=== PATIENT | male | born 1955 | race Caucasian/White ===

== ENCOUNTER 2020-03-11 12:45 | Emergency (ER) | payer BC, SELFPAY ==
--- NOTE | 2020-03-11 12:51 | ED.GENADULT ---
HPI - General Adult General Chief complaint: Skin/Abscess/Foreign Body Stated complaint: Rash Time Seen by Provider: 03/11/20 13:10 Source: patient Mode of arrival: ambulatory Limitations: no limitations History of Present Illness HPI narrative: 65-year-old male patient presents to the [facility] with complaints of a rash to the face and upper extremities. Patient states he came in contact with some poison bassam about 3 days ago and states that the rash is gotten increasingly worse. Patient states he did start taking some [id number]-[id number]-blhlard Cari to help with the itching and has been putting on some topical poison bassam cream that he got from the pharmacy but does not seem to be helping. Patient states that he does have some itchiness around his eyelids and that both of his eyes are popping out but denies any vision changes to bilateral eyes. Denies any chest pain, shortness of breath, fevers, body aches or chills. Related Data Home Medications Medication Instructions Recorded Confirmed alirocumab [Praluent Pen] See Rx Instructions .ROUTE .COMPLEX 03/11/20 03/11/20 lisinopril 10 mg PO DAILY 03/11/20 03/11/20 metoprolol succinate 50 mg PO DAILY 03/11/20 03/11/20 Allergies Allergy/AdvReac Type Severity Reaction Status Date / Time No Known Allergies Allergy Verified 03/11/20 13:03 Review of Systems Review of Systems: Narrative: CONSTITUTIONAL: Denies fever, chills, or sweats. EYES: Denies visual changes, redness, or discharge. ENT: Denies rhinorrhea, congestion, sore throat, or otalgia. CARDIOVASCULAR: Denies chest pain, palpitations, or edema. RESPIRATORY: Denies cough or dyspnea. GASTROINTESTINAL: Denies abdominal pain, nausea, vomiting, or diarrhea. GENITOURINARY: Denies dysuria or hematuria. SKIN: Positive rash to face and bilateral upper extremities x3 days MUSCULOSKELETAL: Denies back pain, joint pain, or myalgia. NEUROLOGIC: Denies headache, numbness, or weakness. PSYCHIATRIC: Denies anxiety or depression. PMFSH Comments At the time of my signature I agree with nursing past medical history, surgical, social, and family history. There is no relevant family history pertinent to the presenting complaint. Exam Narrative: Exam Narrative: GENERAL: Well-appearing, well-nourished, and in no acute distress. HEAD: Normocephalic, atraumatic. EYES: PERRLA and EOM intact without limitation or complaint of pain, periorbital soft tissue swelling with erythema, no warmth or tenderness noted, no obvious deformity. No crusting or swelling.no tearing or draining.No photophobia. No nystagmus No FB or lesion on lid eversion. Corneas grossly clear, no obvious FB or hyphens/hypopyon. injection to sclera. Lids and lashes clear. ENT: Nares clear, no rhinorrhea or epistaxis. Mucous membranes moist. Posterior pharynx with no erythema, tonsil management, exudates or lesions present. Bilateral TMs are clear no erythema or foreign bodies in the canal. NECK: Supple. No lymphadenopathy CHEST: Clear to auscultation. No respiratory distress. HEART: Regular rate and rhythm. No murmur heard. Normal peripheral pulses. ABDOMEN: Soft, nontender, nondistended, normal active bowel sounds. EXTREMITIES: Normal range of motion. No edema. SKIN: Patient does have a flat blotchy erythemic rash noted to various areas of the face, forehead as well as papules and pustules noted to the left shoulder and flat papules with erythema noted to bilateral upper extremities. No open areas or discharge noted at this time. NEURO: No focal deficits. Alert and oriented x3. Course Vital Signs Vital signs: Vital Signs Temperature 36.3 C L 03/11/20 13:00 Pulse Rate 56 L 03/11/20 13:00 Respiratory Rate 16 03/11/20 13:00 Blood Pressure 143/58 H 03/11/20 13:00 Pulse Oximetry 100 03/11/20 13:00 Temperature 36.3 C L 03/11/20 13:00 Pulse Rate 56 L 03/11/20 13:00 Respiratory Rate 16 03/11/20 13:00 Blood Pressure 143/58 H 03/11/20 13:00 Pulse Oximetry 100
[2020-03-11 13:00] VITALS: BP 143/58; PULSE 56; RESP 16; TEMP 36.3; O2SAT 100
== END 2020-03-11 13:20 | disposition home or self-care (01) ==
PROVIDERS: Emergency Provider Nurse Practitioner Family
DX: L25.5 Unspecified contact dermatitis due to plants, except food (principal); H10.33 Unspecified acute conjunctivitis, bilateral; I10 Essential (primary) hypertension; Z95.5 Presence of coronary angioplasty implant and graft
CPT/HCPCS: 99213; G0463

== ENCOUNTER 2022-07-29 15:00 | Outpatient (RCR) | payer BC, SELFPAY ==
--- NOTE | 2022-05-14 16:33 | PTOPEVAL1 ---
Assessment and note entered by Dilia Edwards, PT Evaluation Information Assessment Status Evaluation Diagnosis L tib fib fracture Onset 03/09/2022 Subjective Information Pt reports took forever for swelling to go down, inside half of foot is numb. Working from home. Reports was initially in a rolling walker with minimal weight bearing, now is improved to increased weight and walking with straight cane. Reported Pain Level Pain Score 2: Self Report Assessment PT Clinical Summary Pt presents s/p tib/fib fracture w/ ORIF tibial shaft on 03/10/2022. Reports pain is doing well, lowest at 2/10 and highest at 5/10. Has been able to increase weight bearing and ambulate with a straight cane the last few weeks without increasing pain. Pt PLOF is very high level including working out at a gym 3 time a week. Currently pt demo's decreased active ROM, passive ROM, decreased strength, abnormal gait, and decreased functional activity compared to pt norm . Thus patient will greatly benefit from therapy to address deficits and return pt to PLOF Plan of Care Interventions Electrical Stimulation,Gait Training,Hot Pack/Cold Pack,Manual Therapy,Neuro Re-education,Patient/ Caregiver Educati,Therapeutic Activities, Therapeutic Exercise,Self-Care/Home Management PT Services Indicated Yes Treatment Frequency and 2x weekly x 6 weeks Duration These treatments will address the objective and functional deficits as defined above. The patient will be advanced safely and appropriately in order for the patient to progress towards his/her prior level of function. Additional exercises will be introduced and as well as a comprehensive home exercise program upon discharge, if needed, ?to ensure carryover of functional gains achieved in the clinic. This treatment plan has been reviewed and agreement upon by the patient.
--- NOTE | 2022-06-26 16:34 | PTOPPROG ---
Assessment and note entered by Miguel Edwards, PT Evaluation Information Assessment Status Progress Diagnosis L Tib/fib fx Onset 03/09/2022 Subjective Information Patient reports he is doing more working out and ordered a peloton bike. He is getting around with the cane outside, but not needed assistive device when walking around the home. Still wants to improve his walking pattern to have a better heel strike. Assessment PT Clinical Summary Toñito is a 67 year old man that has been coming to therapy for 9 visits starting on May 14. He has improved range of motion and strength, progressing in his goals, but not yet meeting them. I feel like we can start progressing from range of motion, strengthening, and static standing balance to dynamic static and more advanced ankle stabilization exercises. Patient is on board wanting to work on improving his gait pattern and reducing need of straight cane with walking. Plan of Care Interventions Electrical Stimulation,Gait Training,Manual Therapy,Neuro Re-education,Patient/Caregiver Education,Therapeutic Activities,Therapeutic Exercise,Ultrasound PT Services Indicated Yes Treatment Frequency and 2x/wk for 4 weeks Duration These treatments will address the objective and functional deficits as defined above. The patient will be advanced safely and appropriately in order for the patient to progress towards his/her prior level of function. Additional exercises will be introduced and as well as a comprehensive home exercise program upon discharge, if needed, ?to ensure carryover of functional gains achieved in the clinic. This treatment plan has been reviewed and agreement upon by the patient.
--- NOTE | 2022-07-29 16:27 | PTOPREEVAL ---
Assessment and note entered by Miguel Edwards, PT Evaluation Information Assessment Status Re-evaluation Diagnosis Fracture of tibia and fibula shaft closed L ankle Onset 03/09/22 Subjective Information Patient reports he is able to do more, but still has edema, franks splints, and uses his cane on bad terrain. He reports that he wants to get back to running. Reported Pain Level Pain Score 3: Self Report Additional Pain Score Comments reports decreased pain after manual therapy. Assessment PT Clinical Summary Toñito is a 67 year old coming to the clinic for ankle issues following a traumatic injury with his lawnmower requiring surgery. He started 05/14/22 and has attended 18 visits so for. He has met his goals for range of motion and strength, but not pain also reporting he wants to run again compared to last evaluation when it was not to have to use a cane anymore. Will try to get him on the treadmill, but I feel that that prognosis is guarded. Plan of Care Interventions Electrical Stimulation,Gait Training,Hot Pack/Cold Pack,Manual Therapy,Neuro Re-education,Patient/ Caregiver Education,Therapeutic Activities, Therapeutic Exercise PT Services Indicated Yes Treatment Frequency and 2x/wk for 5 weeks Duration These treatments will address the objective and functional deficits as defined above. The patient will be advanced safely and appropriately in order for the patient to progress towards his/her prior level of function. Additional exercises will be introduced and as well as a comprehensive home exercise program upon discharge, if needed, ?to ensure carryover of functional gains achieved in the clinic. This treatment plan has been reviewed and agreement upon by the patient.
--- NOTE | 2022-09-03 16:34 | PCPTNOTE ---
This treatment is being continued on visit number [id number]. Please see documentation on both accounts to view progress. Completed interventions, outcomes, and problems have been marked as Inactive to facilitate the copying of the Care plan routine for recurring accounts.
== END 2022-08-04 11:35 | disposition home or self-care (01) ==
LOC: ANHPT 15:00
DX: S82.202D Unspecified fracture of shaft of left tibia, subsequent encounter for closed fracture with routine healing (principal); S82.402D Unspecified fracture of shaft of left fibula, subsequent encounter for closed fracture with routine healing
CPT/HCPCS: 97110; 97112; 97140; 97161; 97530

== ENCOUNTER 2022-10-08 15:30 | Outpatient (RCR) | payer BC, SELFPAY ==
--- NOTE | 2022-09-03 16:11 | PTOPPROG ---
Assessment and note entered by Manda Fitzgerald, PT Evaluation Information Assessment Status Progress Diagnosis Fracture of tibia and fibula shaft closed L ankle Onset 03/09/22 Subjective Information Maxi reports: overall have made progress, but in the past 2 weeks have been having more franks pain and foot numbness--top of foot, heel and instep; tend to roll my ankle when walking, due to foot numb; doing the exercises every day at home and they hurt my leg after doing; no longer using the cane, not used for the past 2 weeks; wears compression knee high socks; is using his stationary bike for 20 minutes with interval training for faster speeds; pain range of 0-4/10- increase with walking; franks and knee Assessment PT Clinical Summary Maxi has received a total of 25 PT sessions. Compared to the last reevaluation: pain rating at the worst has increased from 3 to 4/10- anterior franks and some knee pain, with numbness medial foot ; is not using the cane for ambulation on uneven surfaces; he is walking with a limp on L LE/ decreased weight shift onto his L leg and has slight knee flexion with increased weight bearing on his lateral foot; Functional strength testing L LE: -single leg standing R 30 sec- unsteady/L 20 seconds - decreased stability- increased WB on lateral foot and slight knee flexion - supine SLR with 5# ankle wt x 20 reps; side lying hip abduction 5# ankle wt x 20 reps; prone hip extension 5# x 20 reps; - standing B PF x 20 reps; L single leg PF with 1 UE support x 10 reps- increase franks pain;Funct Treadmill testing: speed increased to 1.7 mph x 2 min, with total time of 10 min with warm up and cool down; increase pain in L franks and wanted to stop walking; The goals were partially met. He is to follow up next week with . Continue PT 1x/week for 5 weeks, await further orders from to continue therapy with any further treatment instructions. Plan of Care Interventions Electrical Stimulation,Gait Training,Hot Pack/Cold Pack,Manual Therapy,Neuro Re-education,Patient/ Caregiver Education,Therapeutic Activities, Therapeutic Exercise,Ultrasound,Other Other Interventions taping
--- NOTE | 2022-09-03 16:33 | PCPTNOTE ---
This treatment is being continued on visit number [id number] Please see documentation on both accounts to view progress. Completed interventions, outcomes, and problems have been marked as Inactive to facilitate the copying of the Care plan routine for recurring accounts.
--- NOTE | 2022-10-08 16:07 | PTOPDC ---
Assessment and note entered by Manda Fitzgerald, PT Evaluation Information Assessment Status Discharge Diagnosis Fracture of tibia and fibula shaft closed L ankle Onset 03/09/22 Subjective Information Toñito reports: still aggravated that foot is numb-- to have nerve conduction test November 22; Rock Tape helped franks at last appointment; doing the exercises at home, riding his stationary bike about 20 min; walking is uncomfortable; worried that he will be able to work in the yard this spring like he used to--working 8-10 hr outside; Reported Pain Level Pain Score Self Report L LE Additional Pain Score Comments pain range in the past week 1-4/10; mid franks- medial aspect- like a stabbing pain; numb on bottom of L foot, except arch of foot; increase pain after working out and doing exercises; walking--reports has not tested it, with shopping, holds onto the cart; when home from shopping, heel more numb and tingling Rock tape applied to L medial franks; educated pt on how to apply tape, monitor skin; Assessment PT Clinical Summary Toñito has received a total of 29 PT sessions, from May 14, 2022 to today. Compared to the last reeval: pain rating was 0-4/10 and now is 1-4/10; increase strength of L LE with single leg standing time; single leg PF is the same; with walking on the treadmill, maximum speed for 5 minutes is 1.8 mph; continues to have a limp on L LE with walking and reports numbness in his L foot. He is indep with home exercise program and fitness exercises for overall health. The goals were partially achieved. Discharge PT services. Plan of Care PT Services Indicated No
== END 2022-10-21 09:05 | disposition home or self-care (01) ==
LOC: ANHPT 15:30
DX: S82.202D Unspecified fracture of shaft of left tibia, subsequent encounter for closed fracture with routine healing (principal); S82.402D Unspecified fracture of shaft of left fibula, subsequent encounter for closed fracture with routine healing
CPT/HCPCS: 97035; 97110; 97140; 97530

== ENCOUNTER 2022-11-11 09:04 | Emergency (ER) | payer BC, SELFPAY ==
--- NOTE | 2022-11-11 09:11 | ED.URI ---
HPI - URI/Sore Throat General Chief Complaint: Upper Respiratory Infection Stated Complaint: SINUS CONGESTION/CHEST CONGESTION Time Seen by Provider: 11/11/22 09:20 Source: patient and RN notes reviewed Mode of arrival: ambulatory Limitations: no limitations History of Present Illness HPI Narrative: 67-year-old male presents with concern for rhinorrhea, nasal congestion, sneezing, itchy eyes that started after doing yd work without wearing a mask over the weekend. Reports history of seasonal allergies. He reports he tried Mucinex DM in [place] 1 time. He denies fever, aches, chills, sweats. Reports cough MD elicited complaint: cough, rhinorrhea and nasal congestion Related Data Home Medications Medication Instructions Recorded Confirmed alirocumab 75 mg/mL subcutaneous See Rx Instructions .Route .COMPLEX 03/11/20 11/11/22 pen injector (Praluent Pen) lisinopril 10 mg tablet 10 mg PO DAILY 03/11/20 11/11/22 metoprolol succinate 50 mg 50 mg PO DAILY 03/11/20 11/11/22 tablet,extended release 24 hr Allergies Allergy/AdvReac Type Severity Reaction Status Date / Time No Known Allergies Allergy Verified 11/11/22 09:11 Review of Systems Review of Systems: CONSTITUTIONAL: Denies malaise, chills, sweats, or fever. EYES: Denies visual changes, redness, or discharge. ENT: Reports rhinorrhea, congestion, ear fullness. Denies sinus pain and sore throat. CARDIOVASCULAR: Denies chest pain, palpitations, or edema. RESPIRATORY: Reports cough. Denies dyspnea. GASTROINTESTINAL: Denies abdominal pain, nausea, vomiting, diarrhea SKIN: Denies rash or itching. MUSCULOSKELETAL: Denies myalgia. NEUROLOGIC: Denies headache. All systems reviewed & are unremarkable except as noted in HPI and below PMFSH Comments At time of signature, agree with nursing past medical, surgical, social and family history. There is no relevant family history pertinent to the presenting complaint Exam Narrative: GENERAL: Well-appearing, well-nourished, and in no acute distress. HEAD: Normocephalic EYES: PERRLA, conjunctivae clear ENT: Nares clear, turbinates edematous and erythematous, clear discharge. Mucous membranes moist. TM pearly naranjo with sharp light reflex bilaterally; no tragal tenderness. Oropharynx not erythematous without lesions. Tonsils not enlarged and without exudate, no drooling, no hoarseness, no trismus, uvula midline. NECK: Supple. No lymphadenopathy CHEST: Clear to auscultation, breath sounds equal. No wheezing, rhonchi, rales, or stridor. No respiratory distress, speaks in full sentences. HEART: Regular rate and rhythm. No murmur heard. SKIN: Warm, dry, no rash. NEURO: Alert and oriented x3. PSYCH: Normal mood and affect Course Course Emergency Course: Patient is aware of diagnosis, understands and agrees to treatment plan. Anticipatory guidance given. Patient agrees to follow-up as directed and is aware of reasons to seek care at the emergency department. Portions of this record may have been created with voice recognition software Level of Care: Express Care Visit Vital Signs Vital signs: Reviewed. MDM - URI/Sore Throat MDM Narrative Medical decision making narrative: Differential diagnosis considered: Baron virus, strep pharyngitis, allergic rhinitis, upper respiratory tract infection, sinusitis, rhinosinusitis, nasopharyngitis. viral pharyngitis, otitis media, otitis externa, pneumonia, bronchitis, viral cough syndrome, viral syndrome, and influenza. Exam findings show no acute concerns or changes; patient is non-toxic appearing and is in no distress. Patient is appropriate for outpatient treatment and follow-up. Lab Data Attestation: I reviewed the patient's lab results. Critical Care Time Critical Care Time Critical Care Time: No Discharge Plan Discharge Clinical Impression: Allergic rhinitis Patient Disposition: Home, Self-Care Condition: Stable Instructions: Allergies (ED) Additional Instruction
[2022-11-11 09:13] VITALS: BP 135/71; PULSE 60; RESP 16; TEMP 36.9; O2SAT 99
[2022-11-11 09:14] VITALS: BP 135/71; PULSE 60; RESP 16; TEMP 36.9; O2SAT 99
== END 2022-11-11 09:34 | disposition home or self-care (01) ==
PROVIDERS: Emergency Provider Nurse Practitioner; PCP Internal Medicine
DX: J30.9 Allergic rhinitis, unspecified (principal); I10 Essential (primary) hypertension; I25.10 Atherosclerotic heart disease of native coronary artery without angina pectoris; Z95.5 Presence of coronary angioplasty implant and graft; G47.30 Sleep apnea, unspecified
CPT/HCPCS: 99213; G0463

== ENCOUNTER 2023-05-21 13:32 | Emergency (ER) | payer BC, SELFPAY ==
--- NOTE | 2023-05-21 13:38 | ED.GENADULT ---
HPI - General Adult General Chief complaint: Upper Respiratory Infection Stated complaint: Covid exposure/aches/fatigue Time Seen by Provider: 05/21/23 14:36 Source: patient, RN notes reviewed and old records reviewed Mode of arrival: ambulatory Limitations: no limitations History of Present Illness HPI narrative: 68-year-old male presents to the [facility] with concerns of a COVID exposure last weekend. Patient states that he was around his daughter last weekend who then tested positive for COVID this morning. Was notified this morning of her positive test. Patient reports that he has had body aches, fatigue and sinus pressure since Thursday, 4 days. No treatment prior to arrival Treatments prior to arrival: none Related Data Home Medications Medication Instructions Recorded Confirmed alirocumab 75 mg/mL subcutaneous See Rx Instructions .Route .COMPLEX 03/11/20 11/11/22 pen injector (Praluent Pen) lisinopril 10 mg tablet 10 mg PO DAILY 03/11/20 11/11/22 metoprolol succinate 50 mg 50 mg PO DAILY 03/11/20 11/11/22 tablet,extended release 24 hr gabapentin 300 mg capsule mg 05/21/23 hydroxyzine HCl 25 mg tablet mg 05/21/23 Allergies Allergy/AdvReac Type Severity Reaction Status Date / Time No Known Allergies Allergy Verified 11/11/22 09:11 Review of Systems Review of Systems: All systems reviewed & are unremarkable except as noted in HPI and below Constitutional: Constitutional: Reports as per HPI, Reports body ache(s) and Reports fatigue Eyes: Eyes: Reports no additional eye complaints ENT: Reports as per HPI Cardiovascular: Cardiovascular: Reports no additional cardiovascular complaints, Denies chest pain and Denies dyspnea Respiratory: Respiratory: Reports no additional respiratory complaints, Denies chest congestion, Denies cough and Denies dyspnea Gastrointestinal: Gastrointestinal: Reports no additional gastrointestinal complaints, Denies abdominal pain, Denies nausea and Denies vomiting Musculoskeletal: Musculoskeletal: Reports no additional musculoskeletal complaints Integumentary/Breasts: Skin/Breast: Reports system reviewed and no additional complaints, except as docu Neurologic: Reports system reviewed and no additional complaints, except as documented Psychiatric: Psychiatric: Reports no additional psychiatric complaints Allergic/Immunologic: Allergic/Immunologic: Reports no additional allergic/immunologic complaints PMFSH Past Medical History Medical History (Updated 05/22/23 @ 15:50 by Mariel Raza APRN) History of high blood pressure Comments At the time of my signature, I reviewed and agree with the nursing past medical, surgical, social, and family history. There is no relevant family history pertinent to the patient complaint. Exam Const: General: cooperative, healthy appearing, comfortable, no acute distress, well developed, alert and well nourished Nutritional Appearance: well nourished Orientation/consciousness: patient oriented x3 Limitations: no limitations HENMT: Head: normal to inspection Ears: hearing grossly normal bilaterally, external ears normal, TM's normal bilaterally, EAC's normal and mastoids normal Face/Nose/Sinus: Normal external nose present, Normal nares present, Normal nasal mucous membranes and turbinates present, normal facial exam and face symmetric Face and sinus: normal facial exam, sinuses nontender and face symmetric Mouth: Yes Normal oral and palatal mucosa present, Yes lip normal and Yes moist mucous membranes Throat: posterior oropharynx normal and uvula midline Eyes: General: appearance normal, both eyes and all related structures Alignment and Position: alignment normal Periorbital: periorbital findings normal Pupils: Equal, round and reactive pupils present EOM: EOMs intact bilaterally Neck: Neck: normal visual inspection, full ROM, no lymphadenopathy and no meningeal signs Chest: Chest palpation & inspection: normal inspection of t
[2023-05-21 13:44] VITALS: BP 128/58; PULSE 56; RESP 16; TEMP 37.1; O2SAT 99
== END 2023-05-21 14:50 | disposition home or self-care (01) ==
PROVIDERS: Emergency Provider Nurse Practitioner
DX: J06.9 Acute upper respiratory infection, unspecified (principal); Z20.822 Contact with and (suspected) exposure to COVID-19; I10 Essential (primary) hypertension
CPT/HCPCS: 87426; 87804; 99213; C9803; G0463

== ENCOUNTER 2024-08-31 08:21 | Outpatient (CLI) | payer BC, SELFPAY ==
--- NOTE | ~2024-08-31 | CT_ITS ---
EXAMINATION: CT sinus wo con DATE: 08/31/2024 08:34 INDICATION: Chronic sinusitis. TECHNIQUE: Computed tomography (CT) of the paranasal sinuses was performed without intravenous contra st. Iterative reconstruction technique was employed. The dose-length product was 394.17 mGy-cm. COMPARISON: None FINDINGS: There is mild mucosal thickening in the frontal and ethmoid sinuses. The sphenoid sinuses a re clear. There is mild mucosal thickening in the maxillary sinuses. There is rightward deviation of anterior nasal septum and leftward deviation of posterior nasal septum. The ostiomeatal units are pat ent. There is a 1.9 cm sclerotic lesion in the right frontal bone. IMPRESSION: 1. Mild mucosal thickening in the paranasal sinuses. 2. Rightward deviation of anterior nasal septum and leftward deviation of posterior nasal septum. 3. Sclerotic lesion of bone, which may be benign or metastatic disease. Consider bone scan. Reviewed, dictated and finalized at location A. [employer] REPAIRER IMPRESSION: 1. Mild mucosal thickening in the paranasal sinuses. 2. Rightward deviation of anterior nasal septum and leftward deviation of poste rior nasal septum. 3. Sclerotic lesion of bone, which may be benign or metastatic disease. Conside r bone scan.
== END 2024-08-31 08:22 | disposition home or self-care (01) ==
LOC: GOSHIMG 08:22
PROVIDERS: PCP Nurse Practitioner Family; Visit Provider Nurse Practitioner Family
DX: J34.89 Other specified disorders of nose and nasal sinuses (principal); J34.2 Deviated nasal septum; M89.8X8 Other specified disorders of bone, other site
CPT/HCPCS: 70486

== ENCOUNTER 2024-09-20 09:03 | Outpatient (CLI) | payer BC, SELFPAY ==
--- NOTE | ~2024-09-20 | NM_ITS ---
EXAMINATION: NM bone scan whole body DATE: 09/20/2024 13:08 INDICATION: Disorder of bone TECHNIQUE: 23.8 mCi Tc-99m HDP was administered intravenously. Delayed whole-body scintigrams were o btained. COMPARISON: There are no relevant imaging studies at our institution. FINDINGS: Typical pattern of likely degenerative joint centered uptake at the bilateral knees, acromioclavicula r joints and at the right sternoclavicular joint. Likely dental disease related uptake at the right m andible and maxilla. Mild uptake at both sides of the lower cervical spine also most likely degenerat dereck in etiology. Atypical linear band of mild uptake at the mid left tibia suggestive of an old heali ng fracture. There are couple additional small foci of mild uptake at the more distal tibia of indete rminate etiology given the suggestion of a possible tibial fracture and these could be related to chanel or internal fixation. Would correlate with clinical history and with radiographs of the left tibia an d fibula. Indeterminate focus of mild uptake at the posterior left eighth or ninth rib. IMPRESSION: 1. Indeterminate small focus of activity at the posterior left eighth or ninth rib. 2. Indeterminate linear region of mild increased uptake at the mid left tibial diaphysis with additio nal subtle foci along the more distal tibia. Configuration suggests possible old fracture with international marketing intern al fixation. Correlate with clinical history. 3. A couple indeterminate regions of increased uptake in the region of the left and right posterior i liac spines. 4. No prior imaging available for comparison which significantly limits interpretation for potential etiologies. Of prior outside imaging is unavailable for comparison would recommend dedicated radiogra phs of the left tibia/fibula and radiographs or CT of the left ribs and pelvis for correlation. Reviewed, dictated and finalized at location B. CTION PREVENTION COORDINATOR IMPRESSION: 1. Indeterminate small focus of activity at the posterior left eighth or ninth rib. 2. Indeterminate linear region of mild increased uptake at the mid left tibial diaphysis with additional subtle foci along the more distal tibia. Configuratio n suggests possible old fracture with internal fixation. Correlate with clinica l history. 3. A couple indeterminate regions of increased uptake in the region of the left and right posterior iliac spines. 4. No prior imaging available for comparison which significantly limits interpr etation for potential etiologies. Of prior outside imaging is unavailable for c omparison would recommend dedicated radiographs of the left tibia/fibula and ra diographs or CT of the left ribs and pelvis for correlation.
--- OUTSIDE RECORDS SUMMARY | 2024-09-20 09:44 | XMS_ITS | Encounter Summary ---
Author Organization [facility] Address [address] [place] [address] Care Team Providers Care Keyliner Name Role Phone Lila Carrington MD Primary Care Provider [phone] Encounter Details Date Type Department Care Team (Late st Contact Info) Description 04/14/2019 Specialty Pharmacy [facility] [address] [address] Patrice Fishman Social History Tobacco Use Types Packs/Day Years Used Date Smoking Tobacco: Former Cigarettes Q uit: 07/27/1983 Smokeless Tobacco: Never Alcohol Use Standard Drinks/Week Comments Yes 2 (1 standard drink = 0.6 oz pur e alcohol) Sex and Gender Information Value Date Recorded Sex Assigned at Not on file Legal Sex Male 5:14 PM CDT Gender Identity Not on file Sexual Orientation Not on file documented as of this encounter Plan of Treatment Upcoming Encounters Date Type Department Care Team (Late st Contact Info) Description 02/15/2025 3:00 PM CDT Office Visit [facility] Heart and Vascular At [facility] [address] [facility] [address] [place] [address] Xu Falk MD [address] [facility] [address] [place] [address] documented as of this encounter Visit Diagnoses Not on filedocumented in this encounter Care Teams Keyliner Relationship Specialty Start Date End Date Lila Carrington MD [address] [place] [address] PCP - General Internal Medicine 03/09/22 documented as of this encounter
--- OUTSIDE RECORDS SUMMARY | 2024-09-20 09:44 | XMS_ITS | Encounter Summary ---
Author Organization [facility] Address [address] [place] [address] Care Team Providers Care Sports Equipment Repairer Name Role Phone Lila Carrington MD Primary Care Provider [phone] Reason for Visit * Reason Onset Date Comments Medication Refill 09/20/2024 Encounter Details Date Type Department Care Team (Late Contact Info) Description 09/20/2024 Refill [facility] Internal Medicine Medical [facility] [address] [facility] [address] [address] Lila Carrington MD [address] [facility] [address] [place] [address] Social History Tobacco Use Types Packs/Day Years Used Date Smoking Tobacco: Former Cigarettes 0.5 5 0 07/27/1978 - 07/27/1983 Smokeless Tobacco: Former Chew Alcohol Use Standard Drinks/Week Comments Yes 2 (1 standard drink = 0.6 oz pure alcohol) I drink a couple of beers over the weekend Sex and Gender Information Value Date Recorded Sex Assigned at Not on file Legal Sex Male 5:14 PM CDT Gender Identity Not on file Sexual Orientation Not on file documented as of this encounter Plan of Treatment Upcoming Encounters Date Type Department Care Team (Late st Contact Info) Description 02/15/2025 3:00 PM CDT Office Visit [facility] Heart and Vascular At [facility] [address] [facility] [address] [place] [address] Xu Falk MD [address] [facility] [address] [place] [address] documented as of this encounter Visit Diagnoses Not on filedocumented in this encounter Care Teams Sports Equipment Repairer Relationship Specialty Start Date End Date Lila Carrington MD [address] [facility] [address] [place] [address] PCP - General Internal Medicine 03/09/22 documented as of this encounter
--- OUTSIDE RECORDS SUMMARY | 2024-09-20 09:44 | XMS_ITS | Clinical Summary ---
Author Organization [facility] Address [address] [place] [address] Phone Care Team Providers Care Advertising Representative Name Role Phone Silvio Stephens DPM Unavailable [phone] Lila Carrington MD Primary Care Provider [phone] Cielo Hay APRN, GLASS SELECTOR Unavailable Allergies No known active allergies Medications aspirin EC 81 MG PO TBEC Take by mouth. Acti ve lisinopril (PRINIVIL, ZESTRIL) 20 MG Tablet TAKE 1 TABLET BY MOUTH EVERY DAY 90 Tab 3 7 Active metoprolol Succinate (TOPROL-XL) 50 MG TABLET SR 24 HR TAKE 1 TABLET BY MOUTH EVERY DAY IN THE EVENING 90 Tab 7 Active Alirocumab (Praluent) 75 MG/ML Solution Auto-injector by Subcutaneous route. Active Active Problems Problem Noted Date Diagnosed Date Personal history of tobacco use 07/08/2024 Dermatophytosis of nail 06/09/2016 Hammer toe of right foot 06/09/2016 [place] of toe 06/09/2016 Onychomycosis 05/19/2016 HTN (hypertension) 11/12/2015 Hyperlipidemia 11/12/2015 Coronary artery disease invo lving [place] coronary artery of [place] heart without angina pectoris 11/12/2015 Physical exam 11/12/2015 Trigger ring finger of right hand 11/12/2015 NURYS (obstructive sleep apnea) 11/12/2015 Encounters Date Type Department Care Team Description 07/12/2024 Results Follow-Up [facility] Pulmonology & Sleep Medicine [facility] [address] [place] [address] Cielo Hay APRN, CNP 07/08/2024 7:30 PM DIRECTOR OF OCCUPATIONAL THERAPY Sleep Lab [facility] Sleep Lab [address] [place] [address] Cielo Hay APRN, CNP NURYS (obstructive sleep apnea); Obstructive sleep apnea Discharge Disposition: Discharged to home or Selfcare 07/08/2024 9:30 AM DIRECTOR OF OCCUPATIONAL THERAPY Office Visit [facility] Pulmonology & Sleep Medicine [facility] [address] [place] [address] Cielo Hay APRN, CNP NURYS (obstructive sleep apnea) (Primary Dx) Discharge Disposition: Discharged to home or Selfcare 07/08/2024 Transcribe Orders [facility] Sleep Lab [address] [place] [address] Cielo Hay APRN, CNP Obstructive sleep apnea (Primary Dx) 07/08/2024 Travel 07/06/2024 Travel from Last 3 Months Immunizations Immunization Administration Dates Next Due Influenza Vaccine, Quadrivalent, PF 04/30/2015 04/30/2016 PNEUMONIA ADULT IM [id number] 01/10/2013 PUR FLU 3+ YRS PRES FREE QUAD IM 05/19/2016 PUR FLU PRES FREE AGE 3+ FULL IM 04/17/2014 PUR TDAP 7+ YRS IM 10/29/2012 Family History Medical History Relation Name Comments Parkinsonism Father Congestive Heart Failure Mother Relation Name Status Comments Father Mother Alive Social History Tobacco Use Types Packs/Day Years Used Date Smoking Tobacco: Former Smokeless Tobacco: Never Tobacco Cessation:Counseling Given: Yes Alcohol Use Standard Drinks/Week Comments Yes 0 (1 standard drink = 0.6 oz pur e alcohol) Sexually Active Control Partners Comments Not Currently Female Sex and Gender Information Value Date Recorded Sex Assigned at Not on file Legal Sex Male 7:58 PM CDT Gender Identity Not on file Sexual Orientation Not on file Last Filed Vital Signs Vital Sign Reading Time Taken Comments Blood Pressure 140/80 07/08/2024 9:36 AM DIRECTOR OF OCCUPATIONAL THERAPY Pulse 57 07/08/2024 9:36 AM DIRECTOR OF OCCUPATIONAL THERAPY Temperature 36.2 C (97.1 F) 07/08/2024 9:36 AM DIRECTOR OF OCCUPATIONAL THERAPY Respiratory Rate 14 07/08/2024 9:36 AM DIRECTOR OF OCCUPATIONAL THERAPY Oxygen Saturation 97% 07/08/2024 9:36 AM DIRECTOR OF OCCUPATIONAL THERAPY Inhaled Oxygen Concentration - - Weight 87.4 kg (192 lb 9.6 oz) 07/08/2024 9:36 A M DIRECTOR OF OCCUPATIONAL THERAPY Height 185.4 cm (6' 1 ) 07/08/2024 9:36 AM DIRECTOR OF OCCUPATIONAL THERAPY Body Mass Index 25.41 07/08/2024 9:36 AM DIRECTOR OF OCCUPATIONAL THERAPY Plan of Treatment Upcoming Encounters Date Type Department Care Team (Late st Contact Info) Description 10/17/2024 4:00 PM CDT Office Visit [facility] - Pulmonology & Sleep Medicine [facility] [address] [place] [address] Cielo Hay APRN, GLASS SELECTOR [address] [address] Health Maintenance Due Date Last Done Comments Hepatitis C Virus (HCV) Screening 1955 Cologuard 2005 Immunochemical Fecal Occult Blood 2005 Respiratory Syncytial Virus (RSV) Immunization (Adult) (1 - Risk 60-74 years 1-dose series) 2015 Zoster Immunization (2 of 3) 06/30/2015 05/05/2015 AAA Screening Ultrasound 02/14/2020 Influenza Immunization (#1) 03/27/202405/28, 05/26/2018, 05/19/2016, Additional history exists SARS-COV-2 Immunization ( season) 2024 06/03/2021, 05/13/2021 Colonoscopy 06/24/2031 06/24/2021, 01/02/2014 Colorectal Cancer Screening 06/24/2031 Td Immunization Every 10 Years (Adults With 1 Tdap) 05/13/2033 05/13/2023, 10/29/2012 06/24/2021, 01/02/2014 PSA Discussion Completed 11/05/2015 Pneumococcal Immunization (50+ years) Completed 05/13/2023, 03/26/2020, 01/10/2013 Pneumococcal Immunization Combined Discontinued 05/13/2023, 03/26/2020, 01/10/2013 Hepatitis B Immunization Aged Out No longer eligible based on patient's age to complete this topic Meningococcal Immunization (ACWY) Aged Out No longer eligible based on patient's age to complete this topic Rotavirus Immunization Aged Out No lo nger eligible based on patient's age to complete this topic Procedures Procedure Name Priority Date/Time Associated Diagnosis Comments SPLIT NIGHT POLYSOMNOGRAPHY - INCLUDES DIAGNOSTIC AND CPAP TITRATION Routine 07/09/2024 Obstructive sleep apnea PSA SCREEN Routine 11/05/2015 7:43 AM CDT Encounter for pelvic screening for malignant neoplasm HM COLONOSCOPY Routine 01/02/2014 from Last 3 Months or Most Recently Relevant to Health Maintenance Results * SPLIT NIGHT PSG (07/09/2024) us Cielo Hay APRN, GLASS SELECTOR [facility] ORDERABL ES Final Result * PSA SCREEN (11/05/2015 7:43 AM CDT) PSA SCREEN, TOTAL 1.41 0.00 - 4.00 ng/mL 11/05/2015 11:52 AM CDT [facility] Blood specimen (specimen) Venipuncture / Unknown 11/05/2015 7:43 AM CDT 11/05/2015 7:45 AM CDT Narrative [facility] - 11/05/2015 11:52 AM CDT PSA NOTE: The PSA value should be used in conjunction with information available from clinical evaluation and other diagnostic procedures. us Hardy Cuevas MD CHEMISTRY ORDERABLES Final Re sult [facility] [address] [place] [address] * COLONOSCOPY (01/02/2014) us Xu Mckinney DO PROCEDURE/MINOR SURGICAL ORDERA BLES Final Result from Last 3 Months or Most Recently Relevant to Health Maintenance Insurance [facility] Care Teams Advertising Representative Relationship Specialty Start Date End Date Lila Carrington MD [address] [place] [address] PCP - General Adult Medicine 03/11/22 Silvio Stephens DPM Podiatry 06/09/16 Cielo Hay APRN, GLASS SELECTOR [address] [address] Nurse Practitioner Advanced Practice Nurse 07/08/24
--- OUTSIDE RECORDS SUMMARY | 2024-09-20 09:44 | XMS_ITS | Clinical Summary ---
Author Organization [facility] Address [address] [place] [address] Phone Care Team Providers Care Test And Research Reactor Operator Name Role Phone Lila Carrington MD Primary Care Provider [phone] Allergies Active Allergy Reactions Criticality Noted Date Comments Atorvastatin Muscle Pain Low 11/25/2016 Pravastatin Other (See Comments) 11/23/2018 Leg cramps Medications aspirin (ECOTRIN EC) 81 mg Tablet, Delayed Release (E.C.) Take 81 mg by mouth daily. Active coenzyme Q10 200 mg Capsule Take 200 mg by mouth daily. Active gabapentin (NEURONTIN) 300 mg capsule Take 1-2 capsules nightly as needed for pain 180 Capsule 1 4 Active hydrOXYzine HCL (ATARAX) 25 mg tablet TAKE 1 TABLET BY MOUTH 3 TIMES DAILY NEEDED FOR ANXIETY. 270 Tablet 1 4 Active gabapentin (NEURONTIN) 100 mg capsule Take 1 Capsule (100 mg) by mouth nightly as needed for Pain. Can take along with 300mg capsules as needed 90 Capsule 1 4 Active nitroglycerin (NITROSTAT) 0.4 mg Tablet, Sublingual Place 1 Tablet (0.4 mg) under tongue every 5 minutes as needed for Chest Pain. 25 Tablet 4 Active metoprolol succinate (TOPROL XL) 50 mg Extended Release 24 hour tabletIndicati ons:HTN (hypertension) , benign take 1 tablet by mouth every day 100 Tablet 3 4 Active lisinopriL (PRINIVIL) 20 mg tablet Take 1 Tablet (20 mg) by mouth daily. 100 Tablet 3 4 Active Praluent Pen 75 mg/mL Pen Injector INJECT 75 MG UNDER THE SKIN (SUBCUTANEOU S INJECTION) EVERY 2 WEEKS. 2 Each 6 5 Active alirocumab (Praluent Pen) 75 mg/mL Pen Injector Inject 1 pen (75 mg) under the skin every 2 weeks. 6 mL 3 5 025 Discontinued Active Problems Patient Care Coordination No te Formatting of this note migh t be different from the original. Xu Falk MD--Hardwood Floor Installation Helper ([facility] Heart and Vascular @ ) Problem Noted Date Diagnosed Date Substernal chest pain 02/03/2024 Situational anxiety 11/20/2023 Numbness of left foot 09/09/2022 Myalgia due to statin 03/25/2021 Prediabetes 02/27/2017 Atherosclerosis of [place] co ronary artery of [place] heart without angina pectoris 11/25/2016 NURYS (obstructive sleep apnea) 11/25/2016 HTN (hypertension), benign 11/25/2016 Hx of partial thyroidectomy 11/25/2016 Statin myopathy 11/25/2016 Fracture of tibia and fibula , shaft, left, closed, initial encounter Hyperlipidemia Resolved Problems Problem Noted Date Diagnosed Date Resolved Date Hyperlipidemia 11/25/2016 02/19/2023 HTN (hypertension) 3 Coronary artery disease 01/25 Encounters Date Type Department Care Team Description 09/20/2024 [facility] Internal Medicine Medical [place] [address] [facility] [address] Lila Carrington MD 09/20/2024 [facility] Internal Medicine Medical [place] [address] [facility] [facility] [address] Lila Carrington MD 09/14/2024 [facility] Heart and Vascular At [facility] [address] [place] [address] Xu Falk MD 08/02/2024 External Device Data STL ABSTRACTION Provider, Abstract 07/22/2024 Telephone [facility] Heart and Vascular At [facility] [address] [facility] [address] [place] [address] Xu Falk MD Parulent PA 06/20/2024 Telephone [facility] Internal Medicine Medical [place] [address] [facility] [address] [address] Lila Carrington MD Referral Request from Last 3 Months Immunizations Immunization Administration Dates Next Due (ADACEL/BOOSTRIX)(10 YR UP) TDAP VACCINE, 0.5ML, IM 05/13/2023,10/29/2012 (PFIZER)(12 YR UP) COVID-19 VACCINE - EMERGENCY USE AUTHORIZATION, MRNA, [id number](PF) 30 MCG/0.3 ML IM SUSP 06/03/2021,05/13/2021 (PNEUMOVAX 23)(50 YRS UP) PN EUMOCOCCAL POLYSACCHARIDE (PPV23) 0.5 ML, IM 03/26/2020,01/10/2013 (PREVNAR 20)(6 WKS UP) PNEUM OCOCCAL CONJUGATE VACCINE 20-VALENT (PCV20), POLYSACCHARIDE [id number] CONJUGATE, ADJUVANT 0.5 ML (PF) IM 05/13/2023 (VARZIG) VARICELLA ZOSTER IM MUNE GLOBULIN 125 IU/1.2 ML, IM 05/05/2015 INFLUENZA VACCINE QUADRIVALE NT 3 YR UP PF IM 04/17/2014 INFLUENZA VACCINE QUADRIVALE NT 6 MOS UP CELL DERIVED PF IM 05/26/2018 INFLUENZA VACCINE QUADRIVALE NT 6 MOS UP PF IM 06/22/2019,05/19/2016,04/30/2015 Influenza Seasonal Unspecifi ed Formulation IM 03/02/2017,05/19/2016,04/30/2015 Influenza Vaccine Tri Split 4+ Pf Im 04/17/2014 Zoster Vaccine Live SQ 05/05/2015 Family History Medical History Relation Name Comments Heart Disease Brother 1 High Cholesterol Brother 1 Hypertension Brother 1 Heart Disease Brother 2 Neo High Cholesterol Brother 2 Neo Hypertension Brother 2 Neo Heart Disease Brother 3 High Cholesterol Brother 3 Hypertension Brother 3 Heart Disease Brother 4 Berny High Cholesterol Brother 4 Berny Hypertension Brother 4 Berny No Known Problems Daughter Parkinson's Disease Father No Known Problems Maternal Grandfather No Known Problems Maternal Grandmother Other Mother pacemaker No Known Problems Other Diabetes Paternal Grandfather Chiki Marie Sr No Known Problems Paternal Grandmother No Known Problems Sister No Known Problems Son Relation Name Status Comments Brother 1 Brother 2 Neo Brother 3 Brother 4 Berny Daughter Father Maternal Grandfather Maternal Grandmother Mother Other Paternal Grandfather Chiki Marie Sr Paternal Grandmother Sister Son Social History Tobacco Use Types Packs/Day Years Used Date Smoking Tobacco: Former Cigarettes 0.5 5 0 07/27/1978 - 07/27/1983 Smokeless Tobacco: Former Chew Tobacco Cessation:Counseling Given: Not Answered Alcohol Use Standard Drinks/Week Comments Yes 2 [...] Sign Reading Time Taken Comments Blood Pressure 128/68 02/03/2024 3:13 PM CDT Pulse 72 02/03/2024 3:13 PM CDT Temperature 36.5 C (97.7 F) 05/13/2023 1:57 PM CDT Respiratory Rate 12 05/13/2023 1:57 PM CDT Oxygen Saturation 98% 02/03/2024 3:13 PM CDT Inhaled Oxygen Concentration - - Weight 84.4 kg (186 lb) 02/03/2024 3:13 PM CDT Height 182.9 cm (6') 02/03/2024 3:13 PM CDT Body Mass Index 25.23 02/03/2024 3:13 PM CDT Plan of Treatment Upcoming Encounters Date Type Department Care Team (Late st Contact Info) Description 02/15/2025 3:00 PM CDT Office Visit [facility] Heart and Vascular At [address] [place] [address] Xu Falk MD [address] [facility] [address] [place] [address] Health Maintenance Due Date Last Done Comments FIT-DNA Q 3 years 02/14/2000 FIT/FOBT Q 1 year 02/14/2000 Flex Sig/CT Colonography Q 5 years 02/14/2000 RSV VACCINE (60+ or ) (1 - Risk 60-74 years 1-dose series) 2015 ZOSTER VACCINE (2 of 3) 06/30/2015 05/05/2015 Abdominal Aortic Aneurysm (A AA) Screening 02/14/2020 INFLUENZA VACCINE (#1) 2024 , 09/24/2020, 06/22/2019, Additional history exists COVID-19 Vaccine (3 - 2023-2 5 season) 2024 06/03/2021, 05/13/2021 Pre-Diabetes and Diabetes Screening 06/09/2027 06/09/2024, 11/23/2023, 04/20/2023, Additional history exists COLORECTAL SCREENING 06/24/2031 06/24/2021, 06/24/2021, 01/02/2014 Colorectal Cancer Screening 06/24/2031 DTAP/TDAP/TD VACCINES (3 - T d or Tdap) 05/13/2033 05/13/2023, 10/29/2012 PNEUMOCOCCAL VACCINE 65+ YEARS Completed 1 , 03/26/2020, 01/10/2013 Medical Devices Implanted Type Area Systems Analyst Device Identifier Shelf Expiration Date Model / Serial / Lot Synthes Tibial Nail Implanted:Qty: 1 on 03/10/2022 by Luis Felipe Chau DO at [facility] Nail Left: Tibia Probiodrug 10/25/2031 [id number] S / / [id number] Description:[employer]xero COMP ONETS ON REQUISITION# [id number] Synthes 5.0 Ti Nail Screws Implanted:Qty: 1 on 03/10/2022 by Luis Felipe Chau DO at [facility] Screw Left: Tibia Probiodrug [id number] S / / 2 MAR 08, 2022 Synthes 5.0 Ti Nail Screws Implanted:Qty: 1 on 03/10/2022 by Luis Felipe Chau DO at [facility] Screw Left: Tibia SYNTHES LTD [facility] [id number] S / / 2 5 MAR 08, 2022 Synthes 5.0 Ti Nail Screws Implanted:Qty: 1 on 03/10/2022 by Luis Felipe Chau DO at [facility] Screw Left: Tibia SYNTHES LTD [facility] [id number] S / / 2 5 MAR 08, 2022 Procedures Procedure Name Priority Date/Time Associated Diagnosis Comments HEMOGLOBIN A1C Routine 06/09/2024 7:38 AM PRINT SHOP HELPER Type 2 diabetes mellitus without complication, without long-term current use of insulin ([facility]) COLONOSCOPY REPORT 06/24/2021 9: 21 AM PRINT SHOP HELPER from Last 3 Months or Most Recently Relevant to Health Maintenance Results * (ABNORMAL) HEMOGLOBIN A1C (06/09/2024 7:38 AM PRINT SHOP HELPER) HEMOGLOBIN A1C 6.5(H) <5.7 % of total Hgb [facility] Jean Comment: For someone without known diabetes, a hemoglobin A1c value of 6.5% or greater indicates that they may have diabetes and this should be confirmed with a follow-up test. For someone with known diabetes, a value <7% indicates that their diabetes is well controlled and a value greater than or equal to 7% indicates suboptimal control. A1c targets should be individualized based on duration of diabetes, age, comorbid conditions, and other considerations. Currently, no consensus exists regarding use of hemoglobin A1c for diagnosis of diabetes for children. ESTIMATED AVERAGE GLUCOSE (MG/DL) 140 mg/dL [facility] Jean ESTIMATED AVERAGE GLUCOSE (MMOL/L) 7.7 mmol/L [facility] Jean Comment: FASTING:YES FASTING: YES Test Performed at: [facility] [address] [place] [address] Anderson Lockwood Blood 06/09/2024 7:38 AM PRINT SHOP HELPER 06/09/2024 7:39 AM PRINT SHOP HELPER us Lila Carrington MD CHEMISTRY ORDERABLES Final R esult [facility] [phone] [facility] [address] [place] [address] * COLONOSCOPY REPORT (06/24/2021 9:21 AM PRINT SHOP HELPER) Narrative Procedure Note Sunny Hill MD - 06/24/2021 9:20 AM [facility] Endoscopy Patient Name: Gera Marie Procedure Date: 06/24/2021 Date of : 1955 Attending MD: Sunny Hill MD Procedure: Colonoscopy Indications: Surveillance: Personal history of colonic polyps (unknown histology) on last colonoscopy more than 5 years ago Providers: Sunny Hill MD Referring MD: Lila Carrington Medicines: Propofol per Anesthesia Complications: No immediate complications. Procedure: Informed consent was obtained for the procedure, including moderate sedation after risks were discussed. Based on the pre-procedure assessment, including review of the patient's medical history, medications, allergies, and review of systems, the patient was deemed to be an appropriate candidate for sedation. A timeout was performed. Continuous ECG monitoring, pulse oximetry, blood pressure monitoring, and direct observation were performed. The Colonoscope was introduced through the anus and advanced to the cecum, identified by appendiceal orifice and ileocecal valve. The colonoscopy was performed without difficulty. The patient tolerated the procedure well. The quality of the bowel preparation was good. Estimated Blood Loss: Estimated blood loss: none. Findings: The colonic mucosa was without erythema or ulceration. There were no appreciable diverticulum. The colon prep was good. Within the cecum there was a subtle 15 to 20 mm benign-appearing serrated appearing polyp removed using cold snare polypectomy technique in a piecemeal fashion. The lateral margins were clear of any residual adenomatous tissue. Specimens were collected and sent for histologic review. On withdrawal within the region of the hepatic flexure there were 2 small 5 to 9 mm benign-appearing polyps removed using cold snare polypectomy technique and collected for pathologic review. Retroflexion showed internal hemorrhoids. Impression: Benign-appearing colon polyps status post polypectomy as dictated. Internal hemorrhoids. Recommendation: For colon polyp surveillance if confirmed to be serrated adenoma; based on histology type and size of greater than 1 cm recommend a follow-up colonoscopy in 3 years Sunny Hill MD 06/24/2021 9:19:51 AM This report has been signed electronically. Number of Addenda: [address] [place] [address] Sunny Hill MD GI PROCEDURE ORDERABLES Celia l Result from Last 3 Months or Most Recently Relevant to Health Maintenance Insurance RX [employer] Commercial RX [employer] (INTERNAL) [facility] [employer] RX [employer] Commercial [facility] BLUE ACCESS CHOICE MVA Advance Directives For more information, please contact: [phone] * Full Code (Latest Code Status on File) Date Activated Date Inactivated Comments 03/10/2022 1:04 PM 03/11/2022 6:56 PM * Full Code Date Activated Date Inactivated Comments 03/10/2022 9:33 AM 03/10/2022 1:04 PM Care Teams Test And Research Reactor Operator Relationship Specialty Start Date End Date Lila Carrington MD [address] [place] [phone] PCP - General Internal Medicine 03/09/22
--- OUTSIDE RECORDS SUMMARY | 2024-09-20 09:44 | XMS_ITS | Encounter Summary ---
Author Organization [facility] Address [address] [place] [address] Care Team Providers Care Digital Product Specialist Name Role Phone Lila Carrington MD Primary Care Provider [phone] Reason for Visit * Reason Onset Date Comments Medication Refill 09/20/2024 Encounter Details Date Type Department Care Team (Late Contact Info) Description 09/20/2024 Refill [facility] Internal Medicine Medical [facility] [address] [facility] [address] [address] Lila Carrington MD [address] [facility] [address] [place] [address] Social History Tobacco Use Types [...] Description 02/15/2025 3:00 PM CDT Office Visit [facility] Heart and Vascular At [facility] [place] [address] [address] [address] [place] [address] Xu Falk MD [address] [facility] [address] [place] [address] documented as of this encounter Visit Diagnoses Not on filedocumented in this encounter Care Teams Digital Product Specialist Relationship Specialty Start Date End Date Lila Carrington MD [address] [place] [address] PCP - General Internal Medicine 03/09/22 documented as of this encounter
== END 2024-09-20 09:04 | disposition home or self-care (01) ==
PROVIDERS: PCP Nurse Practitioner Family; Visit Provider Nurse Practitioner Family
DX: R93.7 Abnormal findings on diagnostic imaging of other parts of musculoskeletal system (principal); R93.5 Abnormal findings on diagnostic imaging of other abdominal regions, including retroperitoneum; M89.9 Disorder of bone, unspecified
CPT/HCPCS: 78306; A9503

== ENCOUNTER 2024-09-30 15:00 | Outpatient (CLI) | payer BC, SELFPAY ==
--- NOTE | ~2024-09-30 | XR_ITS ---
EXAMINATION: XR barium swallow modified DATE: 09/30/2024 14:37 INDICATION: Dysphagia. TECHNIQUE: The patient was given barium-containing material of multiple consistencies to swallow by t jacki speech pathologist while I performed fluoroscopy. Fluoroscopy exposure time was 0.9 minutes. The n umber of fluoroscopy images saved to the PACS was 1. Dose-area product was 0.569 Gy-cm^2. FINDINGS: The oral stage and pharyngeal stage of the swallow are normal. There is a cricopharyngeal bar. IMPRESSION: 1. No etiology for the patient's symptoms. 2. Please refer to the speech therapy report for recommendations. Reviewed, dictated and finalized at location A. [facility]
--- OUTSIDE RECORDS SUMMARY | 2024-09-30 14:26 | XMS_ITS | Clinical Summary ---
Author Organization [facility] Address [address] [place] [address] Phone Care Team Providers Care Road Cutter Name Role Phone Lila Carrington MD Primary Care Provider [phone] Allergies Active Allergy Reactions Criticality Noted Date Comments Atorvastatin Muscle Pain Low 11/25/2016 Pravastatin Other (See Comments) 11/23/2018 Leg cramps Medications aspirin (ECOTRIN EC) 81 mg Tablet, Delayed Release (E.C.) Take 81 mg by mouth daily. Active coenzyme Q10 200 mg Capsule Take 200 mg by mouth daily. Active hydrOXYzine HCL (ATARAX) 25 mg tablet TAKE 1 TABLET BY MOUTH 3 TIMES DAILY NEEDED FOR ANXIETY. 270 Tablet 1 01/25/20 24 Active nitroglycerin (NITROSTAT) 0.4 mg Tablet, Sublingual Place 1 Tablet (0.4 mg) under tongue every 5 minutes as needed for Chest Pain. 25 Tablet 01/25/20 24 Active metoprolol succinate (TOPROL XL) 50 mg Extended Release 24 hour tabletIndicati ons:HTN (hypertension) , benign take 1 tablet by mouth every day 100 Tablet 3 05/09/20 24 Active lisinopriL (PRINIVIL) 20 mg tablet Take 1 Tablet (20 mg) by mouth daily. 100 Tablet 3 05/10/20 24 Active Praluent Pen 75 mg/mL Pen Injector INJECT 75 MG UNDER THE SKIN (SUBCUTANEOU S INJECTION) EVERY 2 WEEKS. 2 Each 6 09/14/19 25 Active gabapentin (NEURONTIN) 300 mg capsuleIndicat ions:Myalgia due to statin Take 1-2 capsules nightly as needed for pain 180 Capsule 09/21/19 25 Active gabapentin (NEURONTIN) 100 mg capsule Take 1 Capsule (100 mg) by mouth nightly as needed for Pain. Can take along with 300mg capsules as needed 100 Capsule 3 09/23/19 25 Active gabapentin (NEURONTIN) 300 mg capsule Take 1-2 capsules nightly as needed for pain 180 Capsule 1 01/25/20 24 025 Discontinued(Re order) gabapentin (NEURONTIN) 100 mg capsule Take 1 Capsule (100 mg) by mouth nightly as needed for Pain. Can take along with 300mg capsules as needed 90 Capsule 1 01/25/20 24 025 Discontinued(Re order) alirocumab (Praluent Pen) 75 mg/mL Pen Injector Inject 1 pen (75 mg) under the skin every 2 weeks. 6 mL 3 08/08/19 25 025 Discontinued Active Problems Patient Care Coordination No te Formatting of this note migh t be different from the original. Xu Falk MD--Lace Tearing Supervisor ([facility] Heart and Vascular @ ) Problem Noted Date Diagnosed Date Substernal chest pain 02/03/2024 Situational anxiety 11/20/2023 Numbness of left foot 09/09/2022 Myalgia due to statin 03/25/2021 Prediabetes 02/27/2017 Atherosclerosis of tejon co ronary artery of te[place] heart without angina pectoris 11/25/2016 NURYS (obstructive sleep apnea) 11/25/2016 HTN (hypertension), benign 11/25/2016 Hx of partial thyroidectomy 11/25/2016 Statin myopathy 11/25/2016 Fracture of tibia and fibula , shaft, left, closed, initial encounter Hyperlipidemia Resolved Problems Problem Noted Date Diagnosed Date Resolved Date Hyperlipidemia 11/25/2016 02/19/2023 HTN (hypertension) Coronary artery disease 01/25 Encounters Date Type Department Care Team Description 09/20/2024 Refill [facility] Internal Medicine Medical [place] [facility] [address] [address] Lila Carrington MD 09/20/2024 Refill [facility] Internal Medicine Medical [place] [facility] [address] [address] Lila Carrington MD Myalgia due to statin (Primary Dx) 09/14/2024 Refill [facility] Heart and Vascular At [facility] [address] [place] [address] Xu Falk MD 08/02/2024 External Device Data STL ABSTRACTION Provider, Abstract 07/22/2024 Telephone [facility] Heart and Vascular At [facility] [address] [place] [address] Xu Falk MD Parulent PA from Last 3 Months Immunizations Immunization Administration Dates Next Due (ADACEL/BOOSTRIX)(10 YR UP) TDAP VACCINE, 0.5ML, IM 05/13/2023,10/29/2012 (PFIZER)(12 YR UP) COVID-19 VACCINE - EMERGENCY USE AUTHORIZATION, MRNA, [id number](PF) 30 MCG/0.3 ML IM SUSP 06/03/2021,05/13/2021 (PNEUMOVAX 23)(50 YRS UP) PN EUMOCOCCAL POLYSACCHARIDE (PPV23) 0.5 ML, IM 03/26/2020,01/10/2013 (PREVNAR 20)(6 WKS UP) PNEUM OCOCCAL CONJUGATE VACCINE 20-VALENT (PCV20), POLYSACCHARIDE [id number] CONJUGATE, ADJUVANT 0.5 ML (PF) IM 05/13/2023 [...] Brother 4 Berny High Cholesterol Brother 4 Breny Hypertension Brother 4 Berny No Known Problems Daughter Parkinson's Disease Father No Known Problems Maternal Grandfather No Known Problems Maternal Grandmother Other Mother pacemaker No Known Problems Other Diabetes Paternal Grandfather Chiki Englechely Sr No Known Problems Paternal Grandmother No Known Problems Sister No Known Problems Son Relation Name Status Comments Brother 1 Brother 2 Neo Brother 3 Brother 4 Berny Daughter Father Maternal Grandfather Maternal Grandmother Mother Other Paternal Grandfather Chiki Englechely Sr Paternal Grandmother Sister Son Social History [...] Information Value Date Recorded Sex Assigned at Male 09/24/2024 6:46 AM TABLE CUT OFF SAW OPERATOR Legal Sex Male 5:14 PM CDT Gender Identity Male 09/24/2024 6:46 AM TABLE CUT OFF SAW OPERATOR Sexual Orientation Straight 09/24/2024 6: 46 AM TABLE CUT OFF SAW OPERATOR Last Filed Vital Signs Vital Sign Reading [...] Care Team (Late st Contact Info) Description 11/16/2024 10:00 AM CDT Office Visit [facility] Internal Medicine Medical [place] [facility] [address] [address] Gaviota Mota PA [address] [facility] [facility] [address] [place] [address] 02/15/2025 3:00 PM CDT Office Visit [facility] Heart and Vascular At [facility] [address] [place] [address] Xu Falk MD [address] [facility] [address] [place] [address] Health Maintenance Due Date Last Done Comments [...] or Tdap) 05/13/2033 05/13/2023, 10/29/2012 PNEUMOCOCCAL VACCINE 50+ YEARS Completed 1 , 03/26/2020, 01/10/2013 Medical Devices Implanted Type Area Spinner Hand Device Identifier Shelf Expiration Date Model / Serial / Lot Synthes Tibial Nail Implanted:Qty: 1 on 03/10/2022 by Luis Felipe Chau DO at [facility] Nail Left: Tibia SYNTHES Huaat [facility] 10/25/2031 [id number] S / / [id number] Description:[employer] COMP ONETS ON REQUISITION# [id number] Synthes 5.0 Ti Nail Screws Implanted:Qty: 1 on 03/10/2022 by Luis Felipe Chau DO at [facility] Screw Left: Tibia SYNTHES Huaat [facility] [id number] S / / 2 5 MAR 08, 2022 Synthes 5.0 Ti Nail Screws Implanted:Qty: 1 on 03/10/2022 by Luis Felipe Chau DO at [facility] Screw Left: Tibia SYNTHES Huaat [facility] [id number] S / / 2 5 MAR 08, 2022 Synthes 5.0 Ti Nail Screws Implanted:Qty: 1 on 03/10/2022 by Luis Felipe Chau DO at [facility] Screw Left: Tibia [employer] [facility] [id number] S / / 2 5 MAR 08, 2022 Procedures Procedure Name Priority Date/Time Associated Diagnosis Comments HEMOGLOBIN A1C Routine 06/09/2024 7:38 AM TABLE CUT OFF SAW OPERATOR Type 2 diabetes mellitus without complication, without long-term current use of insulin ([facility]) COLONOSCOPY REPORT 06/24/2021 9: 21 AM TABLE CUT OFF SAW OPERATOR from Last 3 Months or Most Recently Relevant to Health Maintenance Results * (ABNORMAL) HEMOGLOBIN A1C (06/09/2024 7:38 AM TABLE CUT OFF SAW OPERATOR) HEMOGLOBIN A1C 6.5(H) <5.7 % of total Hgb [employer] Jean Comment: For someone without known diabetes, [...] children. ESTIMATED AVERAGE GLUCOSE (MG/DL) 140 mg/dL [email or web address] ESTIMATED AVERAGE GLUCOSE (MMOL/L) 7.7 mmol/L [facility] Comment: FASTING:YES FASTING: YES Test Performed at: [place] [address] [place] [address] Anderson Lockwood Blood 06/09/2024 7:38 AM TABLE CUT OFF SAW OPERATOR 06/09/2024 7:39 AM TABLE CUT OFF SAW OPERATOR us Lila Carrington MD CHEMISTRY ORDERABLES Final R esult [facility] [phone] [place] [address] [place] [address] * COLONOSCOPY REPORT (06/24/2021 9:21 AM TABLE CUT OFF SAW OPERATOR) Narrative Procedure Note Sunny Hill MD - 06/24/2021 9:20 AM CST [facility] Endoscopy Patient Name: Grea Marie Procedure Date: 06/24/2021 Date of : [...] signed electronically. Number of Addenda: [address] [place] [address] Sunny Hill MD GI PROCEDURE ORDERABLES Celia l Result from Last 3 Months or Most Recently Relevant to Health Maintenance Insurance RX EMDEON Commercial RX LAMB PLANS (INTERNAL) [facility] Plans RX PRIME [employer]ER[employer] Commercial BCBS BLUE ACCESS CHOICE [facility] Advance Directives For more information, please contact: [phone] * Full Code (Latest Code Status on File) Date Activated Date Inactivated Comments 03/10/2022 1:04 PM 03/11/2022 6:56 PM * Full Code Date Activated Date Inactivated Comments 03/10/2022 9:33 AM 03/10/2022 1:[address] Cutter Relationship Specialty Start Date End Date Lila Carrington MD [address] [place] [address] PCP - General Internal Medicine 03/09/22
--- OUTSIDE RECORDS SUMMARY | 2024-09-30 14:26 | XMS_ITS | Encounter Summary ---
Author Organization [facility] Address [address] [place] [address] Care Team Providers Care Teacher Selection Specialist Name Role Phone Lila Carrington MD Primary Care Provider [phone] Encounter Details Date Type Department Care Team (Late st Contact Info) Description 04/14/2019 Specialty Pharmacy [facility] [address] [address] Patrice Fishman Social History Tobacco Use Types Packs/Day Years Used Date Smoking Tobacco: Former Cigarettes Q uit: 07/27/1983 Smokeless Tobacco: Never Alcohol Use Standard Drinks/Week Comments Yes 2 (1 standard drink = 0.6 oz pur e alcohol) Sex and Gender Information Value Date Recorded Sex Assigned at Male 09/24/2024 6:46 AM MANUAL TRAINING TEACHER Legal Sex Male 5:14 PM CDT Gender Identity Male 09/24/2024 6:46 AM MANUAL TRAINING TEACHER Sexual Orientation Straight 09/24/2024 6: 46 AM MANUAL TRAINING TEACHER documented as of this encounter Plan of Treatment Upcoming Encounters Date Type Department Care Team (Late st Contact Info) Description 11/16/2024 10:00 AM CDT Office Visit [facility] Internal Medicine Medical [place] [facility] [address] [address] Gaviota Mota PA [address] [facility] [address] [place] [address] 02/15/2025 3:00 PM CDT Office Visit [facility] Heart and Vascular At [facility] [address] [place] [address] Xu Falk MD [address] [place] [address] documented as of this encounter Visit Diagnoses Not on filedocumented in this encounter Care Teams Teacher Selection Specialist Relationship Specialty Start Date End Date Lila Carrington MD [address] [facility] [address] [place] [address] PCP - General Internal Medicine 03/09/22 documented as of this encounter
--- OUTSIDE RECORDS SUMMARY | 2024-09-30 14:26 | XMS_ITS | Clinical Summary ---
Author Organization [facility] Address [address] [place] [address] Phone Care Team Providers Care Human Resources Specialist Name Role Phone Silvio Stephens DPM Unavailable [phone] Lila Carrington MD Primary Care Provider [phone] Cielo Hay APRN, BASKET PERSON Unavailable Allergies No known active allergies Medications [...] 06/09/2016 Hammer toe of right foot 06/09/2016 Mobile of toe 06/09/2016 Onychomycosis 05/19/2016 HTN (hypertension) 11/12/2015 Hyperlipidemia 11/12/2015 Coronary artery disease invo lving [place] coronary artery of [place] heart without angina pectoris 11/12/2015 Physical exam 11/12/2015 Trigger ring finger of right hand 11/12/2015 NURYS (obstructive sleep apnea) 11/12/2015 Encounters Date Type Department Care Team Description 07/12/2024 Results Follow-Up [facility] Pulmonology & Sleep Medicine [facility] [address] [place] [address] Cielo Hay APRN, CNP 07/08/2024 7:30 PM INSURANCE ACCOUNT EXECUTIVE Sleep Lab [facility] Sleep [facility] [address] [place] [address] Cielo Hay APRN, CNP NURYS (obstructive sleep apnea); Obstructive sleep apnea Discharge Disposition: Discharged to home or Selfcare 07/08/2024 9:30 AM INSURANCE ACCOUNT EXECUTIVE Office Visit [facility] Pulmonology & Sleep Medicine [facility] [address] [place] [address] Cielo Hay APRN, CNP NURSY (obstructive sleep apnea) (Primary Dx) Discharge Disposition: Discharged to home or Selfcare 07/08/2024 Transcribe Orders [facility] [address] [place] [address] Cielo Hay APRN, CNP Obstructive sleep apnea [...] Comments Blood Pressure 140/80 07/08/2024 9:36 AM INSURANCE ACCOUNT EXECUTIVE Pulse 57 07/08/2024 9:36 AM INSURANCE ACCOUNT EXECUTIVE Temperature 36.2 C (97.1 F) 07/08/2024 9:36 AM INSURANCE ACCOUNT EXECUTIVE Respiratory Rate 14 07/08/2024 9:36 AM INSURANCE ACCOUNT EXECUTIVE Oxygen Saturation 97% 07/08/2024 9:36 AM INSURANCE ACCOUNT EXECUTIVE Inhaled Oxygen Concentration - - Weight 87.4 kg (192 lb 9.6 oz) 07/08/2024 9:36 A M INSURANCE ACCOUNT EXECUTIVE Height 185.4 cm (6' 1 ) 07/08/2024 9:36 AM INSURANCE ACCOUNT EXECUTIVE Body Mass Index 25.41 07/08/2024 9:36 AM INSURANCE ACCOUNT EXECUTIVE Plan of Treatment Upcoming Encounters Date Type Department Care Team (Late st Contact Info) Description 10/17/2024 4:00 PM CDT Office Visit [facility] - Pulmonology & Sleep Medicine [facility] [address] [place] [address] Cielo Hay APRN, BASKET PERSON [address] [address] Health Maintenance Due Date Last Done Comments [...] NIGHT PSG (07/09/2024) us Cielo Hay APRN, BASKET PERSON SLEEP CENTER ORDERABL ES Final Result * PSA SCREEN (11/05/2015 7:43 AM CDT) PSA SCREEN, TOTAL 1.41 0.00 - 4.00 ng/mL 11/05/2015 11:52 AM CDT [facility] Blood specimen (specimen) Venipuncture / Unknown 11/05/2015 7:43 AM CDT 11/05/2015 7:45 AM CDT Narrative [facility] - 11/05/2015 11:52 AM CDT PSA NOTE: The PSA value should be used in conjunction with information available from clinical evaluation and other diagnostic procedures. us Hardy Cuevas MD CHEMISTRY ORDERABLES Final Re sult [facility] [address] [place] [address] * COLONOSCOPY (01/02/2014) us Xu Mckinney DO PROCEDURE/MINOR SURGICAL ORDERA BLES Final Result from Last 3 Months or Most Recently Relevant to Health Maintenance Insurance [facility] Care Teams Human Resources Specialist Relationship Specialty Start Date End Date Lila Carrington MD [address] [place] [address] PCP - General Adult Medicine 03/11/22 Silvio Stephens DPM Podiatry 06/09/16 Cielo Hay APRN, BASKET PERSON [address] [address] Nurse Practitioner Advanced Practice Nurse 07/08/24
--- OUTSIDE RECORDS SUMMARY | 2024-09-30 15:02 | XMS_ITS | Clinical Summary ---
Author Organization [facility] Address [address] [place] [address] Phone Care Team Providers Care Tool Hardener Name Role Phone Lila Carrington MD Primary Care Provider [phone] Allergies Active Allergy Reactions Criticality Noted Date [...] be different from the original. Xu Falk MD--Biometrics Analyst ([facility] @ ) Problem Noted Date Diagnosed Date Substernal chest pain 02/03/2024 Situational anxiety 11/20/2023 Numbness of left foot 09/09/2022 Myalgia due to statin 03/25/2021 Prediabetes 02/27/2017 Atherosclerosis of [place] co ronary artery of [place] heart without angina pectoris 11/25/2016 NURYS (obstructive sleep apnea) 11/25/2016 HTN (hypertension), benign 11/25/2016 Hx of partial thyroidectomy 11/25/2016 Statin myopathy 11/25/2016 Fracture of tibia and fibula , shaft, left, closed, initial encounter Hyperlipidemia Resolved Problems Problem Noted Date Diagnosed Date Resolved Date Hyperlipidemia 11/25/2016 02/19/2023 HTN (hypertension) Coronary artery disease 01/25 Encounters Date Type Department Care Team Description 09/20/2024 Refill [facility] Internal Medicine Medical [place] [address] [address] Lila Carrington MD 09/20/2024 Refill [facility] Internal Medicine Medical [place] [facility] [address] [address] Lila Carrington MD Myalgia due to statin (Primary Dx) 09/14/2024 Refill [facility] Heart and Vascular At [facility] [address] [place] [address] Xu Falk MD 08/02/2024 External Device Data STL ABSTRACTION Provider, Abstract 07/22/2024 Telephone [facility] Heart and Vascular At [facility] [address] [place] [address] Xu Falk MD Parulent PA from Last 3 Months Immunizations Immunization Administration Dates Next Due (ADACEL/BOOSTRIX)(10 YR UP) TDAP VACCINE, 0.5ML, IM 05/13/2023,10/29/2012 (PFIZER)(12 YR UP) COVID-19 VACCINE - EMERGENCY USE AUTHORIZATION, MRNA, [id number](PF) 30 MCG/0.3 ML IM SUSP 06/03/2021,05/13/2021 (PNEUMOVAX 23)(50 YRS UP) PN EUMOCOCCAL POLYSACCHARIDE (PPV23) 0.5 ML, IM 03/26/2020,01/10/2013 (PREVNAR 20)(6 WKS UP) PNEUM OCOCCAL CONJUGATE VACCINE 20-VALENT (PCV20), POLYSACCHARIDE [id number] CONJUGATE, ADJUVANT 0.5 ML (PF) IM 05/13/2023 [...] Maternal Grandmother Mother Other Paternal Grandfather Chiki Enlgechely Sr Paternal Grandmother Sister Son Social History [...] Sex Assigned at Male 09/24/2024 6:46 AM INSTRUCTIONAL TECHNOLOGY COACH Legal Sex Male 5:14 PM CDT Gender Identity Male 09/24/2024 6:46 AM INSTRUCTIONAL TECHNOLOGY COACH Sexual Orientation Straight 09/24/2024 6: 46 AM INSTRUCTIONAL TECHNOLOGY COACH Last Filed Vital Signs Vital Sign Reading [...] Description 11/16/2024 10:00 AM CDT Office Visit [facility] Internal Medicine Medical [place] [address] [address] Gaviota Mota PA [address] [place] [address] 02/15/2025 3:00 PM CDT Office Visit [facility] Heart and Vascular At [facility] [address] [place] [address] Xu Falk MD [address] [place] [address] Health Maintenance Due Date Last [...] 03/26/2020, 01/10/2013 Medical Devices Implanted Type Area Data Collection Interviewer Device Identifier Shelf Expiration Date Model / Serial / Lot Synthes Tibial Nail Implanted:Qty: 1 on 03/10/2022 by Luis Felipe Chau DO at [facility] Nail Left: Tibia [employer] [facility] 10/25/2031 [id number] S / / [id number] Description:Viibar COMP ONETS ON REQUISITION# [id number] Synthes 5.0 Ti Nail Screws Implanted:Qty: 1 on 03/10/2022 by Luis Felipe Chau DO at [facility] Screw Left: Tibia [employer] [facility] [id number] S / / 2 5 MAR 08, 2022 Synthes 5.0 Ti Nail Screws Implanted:Qty: 1 on 03/10/2022 by Luis Felipe Chau DO at [facility] Screw Left: Tibia [employer] [facility] [id number] S / / 2 5 MAR 08, 2022 Synthes 5.0 Ti Nail Screws Implanted:Qty: 1 on 03/10/2022 by Luis Felipe Chau DO at [facility] Screw Left: Tibia [employer] [facility] [id number] S / / 2 5 MAR 08, 2022 Procedures Procedure Name Priority Date/Time Associated Diagnosis Comments HEMOGLOBIN A1C Routine 06/09/2024 7:38 AM INSTRUCTIONAL TECHNOLOGY COACH Type 2 diabetes mellitus without complication, without long-term current use of insulin ([facility]) COLONOSCOPY REPORT 06/24/2021 9: 21 AM INSTRUCTIONAL TECHNOLOGY COACH from Last 3 Months or Most Recently Relevant to Health Maintenance Results * (ABNORMAL) HEMOGLOBIN A1C (06/09/2024 7:38 AM INSTRUCTIONAL TECHNOLOGY COACH) HEMOGLOBIN A1C 6.5(H) <5.7 % of total Hgb RanberryPaola Jean Comment: For someone without known diabetes, [...] children. ESTIMATED AVERAGE GLUCOSE (MG/DL) 140 mg/dL [facility] ESTIMATED AVERAGE GLUCOSE (MMOL/L) 7.7 mmol/L [facility] Comment: FASTING:YES FASTING: YES Test Performed at: [place] [address] [place] [address] Anderson Lockwood Blood 06/09/2024 7:38 AM INSTRUCTIONAL TECHNOLOGY COACH 06/09/2024 7:39 AM INSTRUCTIONAL TECHNOLOGY COACH us Lila Carrington MD CHEMISTRY ORDERABLES Final R esult [facility] [phone] [place] [address] [place] [address] * COLONOSCOPY REPORT (06/24/2021 9:21 AM INSTRUCTIONAL TECHNOLOGY COACH) Narrative Procedure Note Sunny Hill MD - 06/24/2021 9:20 AM CST [facility] Patient Name: Gera Marie Procedure Date: [...] of Addenda: [address]; [place] [address] Sunny Hill MD GI PROCEDURE ORDERABLES Celia l Result from Last 3 Months or Most Recently Relevant to Health Maintenance Insurance RX EMDEON Commercial RX LAMB PLANS (INTERNAL) [facility] RX PRIME [employer]ER[employer] Commercial BCBS BLUE ACCESS CHOICE [facility] Advance Directives For more information, please contact: [phone] * Full Code (Latest Code Status on File) Date Activated Date Inactivated Comments 03/10/2022 1:04 PM 03/11/2022 6:56 PM * Full Code Date Activated Date Inactivated Comments 03/10/2022 9:33 AM 03/10/2022 1:04 PM Care Teams Tool Hardener Relationship Specialty Start Date End Date Lila Carrington MD [address] [place] [address] PCP - General Internal Medicine 03/09/22
--- OUTSIDE RECORDS SUMMARY | 2024-09-30 15:02 | XMS_ITS | Clinical Summary ---
Author Organization [facility] Address [address] [place] [address] Phone Care Team Providers Care Fitter Tacker Name Role Phone Silvio Stephens DPM Unavailable [phone] Lila Carrington MD Primary Care Provider [phone] Cielo Hay APRN, EXECUTIVE TEAM LEADER Unavailable [phone] Allergies No known active allergies Medications aspirin [...] 06/09/2016 Hammer toe of right foot 06/09/2016 [place] of toe 06/09/2016 Onychomycosis 05/19/2016 HTN (hypertension) 11/12/2015 Hyperlipidemia 11/12/2015 Coronary artery disease invo lving [place] coronary artery of [place] heart without angina pectoris 11/12/2015 Physical exam 11/12/2015 Trigger ring finger of right hand 11/12/2015 NURYS (obstructive sleep apnea) 11/12/2015 Encounters Date Type Department Care Team Description 07/12/2024 Results Follow-Up [facility] Pulmonology & Sleep Medicine [facility] [address] [place] [address] Cielo Hay APRN, CNP 07/08/2024 7:30 PM SCIENTIFIC INFORMATICS ANALYST Sleep Lab [facility] [address] [place] [address] Cielo Hay APRN, CNP NURYS (obstructive sleep apnea); Obstructive sleep apnea Discharge Disposition: Discharged to home or Selfcare 07/08/2024 9:30 AM SCIENTIFIC INFORMATICS ANALYST Office Visit [facility] Pulmonology & Sleep Medicine [facility] [address] [place] [address] Cielo Hay APRN, CNP NURYS (obstructive sleep apnea) (Primary Dx) Discharge Disposition: Discharged to home or Selfcare 07/08/2024 Transcribe Orders [facility] [address] [place] [address] Cielo Hay APRN, CNP Obstructive sleep apnea [...] Comments Blood Pressure 140/80 07/08/2024 9:36 AM SCIENTIFIC INFORMATICS ANALYST Pulse 57 07/08/2024 9:36 AM SCIENTIFIC INFORMATICS ANALYST Temperature 36.2 C (97.1 F) 07/08/2024 9:36 AM SCIENTIFIC INFORMATICS ANALYST Respiratory Rate 14 07/08/2024 9:36 AM SCIENTIFIC INFORMATICS ANALYST Oxygen Saturation 97% 07/08/2024 9:36 AM SCIENTIFIC INFORMATICS ANALYST Inhaled Oxygen Concentration - - Weight 87.4 kg (192 lb 9.6 oz) 07/08/2024 9:36 A M SCIENTIFIC INFORMATICS ANALYST Height 185.4 cm (6' 1 ) 07/08/2024 9:36 AM SCIENTIFIC INFORMATICS ANALYST Body Mass Index 25.41 07/08/2024 9:36 AM SCIENTIFIC INFORMATICS ANALYST Plan of Treatment Upcoming Encounters Date Type Department Care Team (Late st Contact Info) Description 10/17/2024 4:00 PM CDT Office Visit [facility] - Pulmonology & Sleep Medicine [facility] [address] [place] [address] Cielo Hay APRN, EXECUTIVE TEAM LEADER [address] [address] Health Maintenance Due Date Last Done Comments [...] NIGHT PSG (07/09/2024) us Cielo Hay APRN, EXECUTIVE TEAM LEADER [facility] CENTER ORDERABL ES Final Result * PSA SCREEN (11/05/2015 7:43 AM CDT) PSA SCREEN, TOTAL 1.41 0.00 - 4.00 ng/mL 11/05/2015 11:52 AM CDT [facility] Blood specimen (specimen) Venipuncture / Unknown 11/05/2015 7:43 AM CDT 11/05/2015 7:45 AM CDT Narrative [facility] - 11/05/2015 11:52 AM CDT PSA NOTE: The PSA value should be used in conjunction with information available from clinical evaluation and other diagnostic procedures. us Hardy Cuevas MD CHEMISTRY ORDERABLES Final Re sult [facility] [address] [place] [address] * COLONOSCOPY (01/02/2014) us Xu Mckinney DO PROCEDURE/MINOR SURGICAL ORDERA BLES Final Result from Last 3 Months or Most Recently Relevant to Health Maintenance Insurance [facility] Care Teams Fitter Tacker Relationship Specialty Start Date End Date Lila Carrington MD [address] [place] [address] PCP - General Adult Medicine 03/11/22 Silvio Stephens DPM Podiatry 06/09/16 Cielo Hay APRN, EXECUTIVE TEAM LEADER [address] [address] Nurse Practitioner Advanced Practice Nurse 07/08/24
--- OUTSIDE RECORDS SUMMARY | 2024-09-30 15:02 | XMS_ITS | Encounter Summary ---
Author Organization [facility] Address [address] [place] [address] Care Team Providers Care Photoengraving Proofer Apprentice Name Role Phone Lila Carrington MD Primary Care Provider [phone] Encounter Details Date Type Department Care Team (Late st Contact Info) Description 04/14/2019 Specialty Pharmacy [facility] [address] [address] Patrice Fishman Social History Tobacco Use Types Packs/Day Years Used Date Smoking Tobacco: Former Cigarettes Q uit: 07/27/1983 Smokeless Tobacco: Never Alcohol Use Standard Drinks/Week Comments Yes 2 (1 standard drink = 0.6 oz pur e alcohol) Sex and Gender Information Value Date Recorded Sex Assigned at Male 09/24/2024 6:46 AM CELLULOSE INSULATION HELPER Legal Sex Male 5:14 PM CDT Gender Identity Male 09/24/2024 6:46 AM CELLULOSE INSULATION HELPER Sexual Orientation Straight 09/24/2024 6: 46 AM CELLULOSE INSULATION HELPER documented as of this encounter Plan of Treatment Upcoming Encounters Date Type Department Care Team (Late st Contact Info) Description 11/16/2024 10:00 AM CDT Office Visit [facility] Internal Medicine Medical [place] [address] [address] Gaviota Mota PA [address] [place] [address] 02/15/2025 3:00 PM CDT Office Visit [facility] Heart and Vascular At [facility] [address] [place] [address] Xu Falk MD [address] [place] [address] documented as of this encounter Visit Diagnoses Not on filedocumented in this encounter Care Teams Photoengraving Proofer Apprentice Relationship Specialty Start Date End Date Lila Carrington MD [address] [place] [address] PCP - General Internal Medicine 03/09/22 documented as of this encounter
--- NOTE | 2024-10-03 07:20 | REHSTMBS ---
Assessment and note entered by Amanda Matt, REMEDY DEVELOPER Modified Barium Swallow Evaluation ICD-10 Condition Codes (ST) Dysphagia, unspecified R13.1 Feeding Type Recommended Oral Food Consistency Regular, Level 7 Liquid Consistency Thin (0) ST Clinical Summary The above pleasant and cooperative pt was seen for an outpatient modified barium swallow. He was alert & oriented, and able to follow commands. He is currently on a regular diet and reports difficulty in that vitamins stick in throat, which started about 6 months ago. He stated he now has breathing issues and that his stomach also feels bloated and that something is pushing up from his stomach . He denied coughing or choking while eating/drinking. Oral mucosa is normal; natural dentition is in good condition; informal oral peripheral exam revealed lingual and labial structures to be normal. He was able to dry swallow on command and exhibited a strong cough and clear vocal quality. The patient was positioned for a lateral view and presented with 5cc of thin liquid barium via spoon , pudding consistency barium via a spoon, cracker coated with barium pudding via spoon, and uncontrolled thin liquid barium. This was presented via a cup & straw. Oral preparatory and oral phase symptoms: none. Pharyngeal phase symptoms: none. Esophageal stage symptoms: small prominence at the level of UES, but it was without effect. No pharyngeal residual was noted; no laryngeal penetration or aspiration occurred. Impressions: Normal/functional swallow Ability No further ST is warranted at this time.
== END 2024-09-30 15:01 | disposition home or self-care (01) ==
PROVIDERS: PCP Nurse Practitioner Family; Visit Provider Nurse Practitioner Family
DX: R13.10 Dysphagia, unspecified (principal)
CPT/HCPCS: 92611

== ENCOUNTER 2024-12-26 00:20 | Day surgery (SDC) | payer BC, SELFPAY ==
[2024-12-20 08:33] VITALS: BMI 26.9
--- OUTSIDE RECORDS SUMMARY | 2024-12-26 00:22 | XMS_ITS | Encounter Summary ---
Author Organization [facility] Address [address] [place] [address] Care Team Providers Care Cook Ice Cream Name Role Phone Lila Carrington MD Primary Care Provider [phone] Reason for Visit * Reason Comments Med Refill Encounter Details Date Type Department Care Team (Late st Contact Info) Description 12/25/2024 Refill [facility] Internal Medicine Medical [facility] [address] [address] Lila Carrington MD [address] [place] [address] Myalgia due to statin Social History Tobacco Use Types Packs/Day Years Used Date Smoking Tobacco: Former Cigarettes 0.5 5 0 07/27/1978 - 07/27/1983 Smokeless Tobacco: Former Chew Alcohol Use Standard Drinks/Week Comments Yes 2 (1 standard drink = 0.6 oz pure alcohol) I drink a couple of beers over the weekend Sex and Gender Information Value Date Recorded Sex Assigned at Male 09/24/2024 6:46 AM SOLAR PV INSTALLER Legal Sex Male 5:14 PM CDT Gender Identity Male 09/24/2024 6:46 AM SOLAR PV INSTALLER Sexual Orientation Straight 09/24/2024 6: 46 AM SOLAR PV INSTALLER documented as of this encounter Plan of Treatment Upcoming Encounters Date Type Department Care Team (Late st Contact Info) Description 01/04/2025 2:30 PM CDT Office Visit [facility] Internal Medicine Medical [place] [facility] [address] [address] Richard Fischer PA-C [address] [facility] [address] [place] [address] 02/15/2025 3:00 PM CDT Office Visit [facility] Heart and Vascular At [facility] [address] [place] [address] Xu Falk MD [address] [place] [address] documented as of this encounter Visit Diagnoses Diagnosis Myalgia due to statin documented in this encounter Care Teams Cook Ice Cream Relationship Specialty Start Date End Date Lila Carrington MD [address] [place] [address] PCP - General Internal Medicine 03/09/22 documented as of this encounter
--- OUTSIDE RECORDS SUMMARY | 2024-12-26 00:22 | XMS_ITS | Encounter Summary ---
Author Organization [facility] Address [address] [place] [address] Care Team Providers Care Logistics Specialist Name Role Phone Lila Carrington MD Primary Care Provider [phone] Encounter Details Date Type Department Care Team (Late st Contact Info) Description 04/14/2019 Specialty Pharmacy [facility] [address] [address] Patrice Fishman Social History Tobacco Use Types Packs/Day Years Used Date Smoking Tobacco: Former Cigarettes Q uit: 07/27/1983 Smokeless Tobacco: Never Alcohol Use Standard Drinks/Week Comments Yes 2 (1 standard drink = 0.6 oz pur e alcohol) Sex and Gender Information Value Date Recorded Sex Assigned at Male 09/24/2024 6:46 AM REAL ESTATE AGENT Legal Sex Male 5:14 PM CDT Gender Identity Male 09/24/2024 6:46 AM REAL ESTATE AGENT Sexual Orientation Straight 09/24/2024 6: 46 AM REAL ESTATE AGENT documented as of this encounter Plan of Treatment Upcoming Encounters Date Type Department Care Team (Late st Contact Info) Description 01/04/2025 2:30 PM CDT Office Visit [facility] Internal Medicine Medical [place] [address] [address] Richard Fischer PA-C [address] [facility] [address] [place] [address] 02/15/2025 3:00 PM CDT Office Visit [facility] Heart and Vascular At [facility] [address] [facility] [place] [address] Xu Falk MD [address] [place] [address] documented as of this encounter Visit Diagnoses Not on filedocumented in this encounter Care Teams Logistics Specialist Relationship Specialty Start Date End Date Lila Carrington MD [address] [facility] [address] [place] [address] PCP - General Internal Medicine 03/09/22 documented as of this encounter
--- OUTSIDE RECORDS SUMMARY | 2024-12-26 00:22 | XMS_ITS | Clinical Summary ---
Author Organization [facility] Address [address] [place] [address] Phone Care Team Providers Care Tray Line Supervisor Name Role Phone Silvio Stephens DPM Unavailable [phone] Lila Carrington MD Primary Care Provider [phone] Cielo Hay APRN, DENTAL SALES REPRESENTATIVE Unavailable Allergies No known active allergies Medications [...] 06/09/2016 Hammer toe of right foot 06/09/2016 Burchard of toe 06/09/2016 Onychomycosis 05/19/2016 HTN (hypertension) 11/12/2015 Hyperlipidemia 11/12/2015 Coronary artery disease invo lving [place] coronary artery of [place] heart without angina pectoris 11/12/2015 Physical exam 11/12/2015 Trigger ring finger of right hand 11/12/2015 NURYS (obstructive sleep apnea) 11/12/2015 Immunizations Immunization Administration Dates Next Due Influenza [...] Comments Blood Pressure 140/80 07/08/2024 9:36 AM CENTRAL OFFICE INSPECTOR Pulse 57 07/08/2024 9:36 AM CENTRAL OFFICE INSPECTOR Temperature 36.2 C (97.1 F) 07/08/2024 9:36 AM CENTRAL OFFICE INSPECTOR Respiratory Rate 14 07/08/2024 9:36 AM CENTRAL OFFICE INSPECTOR Oxygen Saturation 97% 07/08/2024 9:36 AM CENTRAL OFFICE INSPECTOR Inhaled Oxygen Concentration - - Weight 87.4 kg (192 lb 9.6 oz) 07/08/2024 9:36 A M CENTRAL OFFICE INSPECTOR Height 185.4 cm (6' 1) 07/08/2024 9:36 AM CENTRAL OFFICE INSPECTOR Body Mass Index 25.41 07/08/2024 9:36 AM CENTRAL OFFICE INSPECTOR Plan of Treatment Health Maintenance Due Date Last Done Comments Hepatitis C Virus (HCV) Screening 1955 Cologuard 2005 Immunochemical Fecal Occult Blood 2005 Respiratory Syncytial Virus (RSV) Immunization (Adult) (1 - Risk 60-74 years 1-dose series) 2015 Zoster Immunization (2 of 3) 06/30/2015 05/05/2015 AAA Screening Ultrasound 02/14/2020 SARS-COV-2 Immunization (3 - season) 2024 06/03/2021, 05/13/2021 Influenza Immunization (Season Ended) 2025 06/22/2019, 05/26/2018, 03/02/2017, Additional history exists Colonoscopy 06/24/2031 06/24/2021, 01/02/2014 Colorectal Cancer Screening 06/24/2031 Td Immunization Every 10 Years (Adults With 1 Tdap) 05/13/2033 05/13/2023, 10/29/2012 06/24/2021, 01/02/2014 PSA Discussion Completed 11/05/2015 Pneumococcal Immunization (50+ years) Completed 05/13/2023, 03/26/2020, 01/10/2013 Pneumococcal Immunization Combined Discontinued 05/13/2023, 03/26/2020, 01/10/2013 Hepatitis B Immunization Aged Out No longer eligible based on patient's age to complete this topic Human Papillomavirus (HPV) Immunization Aged Out No longer eligible based on patient's age to complete this topic Meningococcal Immunization (ACWY) Aged Out No longer eligible based on patient's age to complete this topic Rotavirus Immunization Aged Out No lo nger eligible based on patient's age to complete this topic Procedures Procedure Name Priority Date/Time Associated Diagnosis Comments PSA SCREEN Routine 11/05/2015 7:43 AM CDT Encounter for pelvic screening for malignant neoplasm COLONOSCOPY Routine 01/02/2014 from Last 3 Months or Most Recently Relevant to Health Maintenance Results * PSA SCREEN (11/05/2015 7:43 AM CDT) PSA SCREEN, TOTAL 1.41 0.00 - 4.00 ng/mL 11/05/2015 11:52 AM CDT [facility] Blood specimen (specimen) Venipuncture / Unknown 11/05/2015 7:43 AM CDT 11/05/2015 7:45 AM CDT Narrative [facility] - 11/05/2015 11:52 AM CDT PSA NOTE: The PSA value should be used in conjunction with information available from clinical evaluation and other diagnostic procedures. us Hardy uCevas MD CHEMISTRY ORDERABLES Final Re sult [facility] [address] [place] [address] * COLONOSCOPY (01/02/2014) us Xu Mckinney DO PROCEDURE/MINOR SURGICAL ORDERA BLES Final Result from Last 3 Months or Most Recently Relevant to Health Maintenance Insurance [facility] Care Teams Tray Line Supervisor Relationship Specialty Start Date End Date Lila Carrington MD [address] [place] [address] PCP - General Adult Medicine 03/11/22 Silvio Stephens DPM Podiatry 06/09/16 Cielo Hay APRN, DENTAL SALES REPRESENTATIVE [address] [address] Nurse Practitioner Advanced Practice Nurse 07/08/24
--- OUTSIDE RECORDS SUMMARY | 2024-12-26 00:22 | XMS_ITS | Clinical Summary ---
Author Organization [facility] Address [address] [place] [address] Phone Care Team Providers Care Hat Block Bench Hand Name Role Phone Lila Carrington MD Primary Care Provider [phone] Allergies Active Allergy Reactions Criticality Noted Date Comments Atorvastatin Muscle Pain Low 11/25/2016 Pravastatin Other (See Comments) 11/23/2018 Leg cramps Medications aspirin (ECOTRIN EC) 81 mg Tablet, Delayed Release (E.C.) Take 81 mg by mouth daily. Active coenzyme Q10 200 mg Capsule Take 200 mg by mouth daily. Active nitroglycerin (NITROSTAT) 0.4 mg Tablet, Sublingual Place 1 Tablet (0.4 mg) under tongue every 5 minutes as needed for Chest Pain. 25 Tablet 01/25/2024 Active metoprolol succinate (TOPROL XL) 50 mg Extended Release 24 hour tabletIndicatio ns:HTN (hypertension), benign take 1 tablet by mouth every day 100 Tablet 3 05/09/2024 Active lisinopriL (PRINIVIL) 20 mg tablet Take 1 Tablet (20 mg) by mouth daily. 100 Tablet 3 05/10/2024 Active Praluent Pen 75 mg/mL Pen Injector INJECT 75 MG UNDER THE SKIN (SUBCUTANEOUS INJECTION) EVERY 2 WEEKS. 2 Each 6 09/14/2024 Active gabapentin (NEURONTIN) 300 mg capsuleIndicati ons:Myalgia due to statin Take 1-2 capsules nightly as needed for pain 180 Capsule 09/21/2024 Active gabapentin (NEURONTIN) 100 mg capsule Take 1 Capsule (100 mg) by mouth nightly as needed for Pain. Can take along with 300mg capsules as needed 100 Capsule 3 09/23/2024 Active hydrOXYzine HCL (ATARAX) 25 mg tablet TAKE 1 TABLET BY MOUTH THREE TIMES A DAY NEEDED FOR ANXIETY 270 Tablet 10/17/2024 Active Active Problems Patient Care Coordination No te Formatting of this note migh t be different from the original. Xu Falk MD--Rod Cup Filler ([facility] @ ) Problem Noted Date Diagnosed Date Substernal chest pain 02/03/2024 Situational anxiety 11/20/2023 Numbness of left foot 09/09/2022 Myalgia due to statin 03/25/2021 Prediabetes 02/27/2017 Atherosclerosis of [place] co ronary artery of [place] heart without angina pectoris 11/25/2016 NURYS (obstructive sleep apnea) 11/25/2016 HTN (hypertension), benign 11/25/2016 Hx of partial thyroidectomy 11/25/2016 Statin myopathy 11/25/2016 Fracture of tibia and fibula , shaft, left, closed, initial encounter Hyperlipidemia Resolved Problems Problem Noted Date Diagnosed Date Resolved Date Hyperlipidemia 11/25/2016 02/19/2023 HTN (hypertension) Coronary artery disease 01/25 Encounters Date Type Department Care Team Description 12/25/2024 Refill [facility] [place] [address] [address] Lila Carrington MD Myalgia due to statin 12/20/2024 External Device Data STL ABSTRACTION Provider, Abstract 12/13/2024 External Device Data STL ABSTRACTION Provider, Abstract 12/08/2024 Abstract [facility] [address] [address] [address] Lila Carrington MD 11/01/2024 Telephone [facility] At [facility] [address] [place] [address] Xu Falk MD Results (Needs stress test & ekg) 10/15/2024 Refill [facility] [place] [address] [address] Lila Carrington MD 10/12/2024 External Device Data STL ABSTRACTION Provider, Abstract from Last 3 Months Immunizations Immunization Administration Dates Next Due (ADACEL/BOOSTRIX)(10 YR UP) TDAP VACCINE, 0.5ML, IM 05/13/2023,10/29/2012 (PFIZER)(12 YR UP) COVID-19 VACCINE - EMERGENCY USE AUTHORIZATION, MRNA, [id number](PF) 30 MCG/0.3 ML IM SUSP 06/03/2021,05/13/2021 (PNEUMOVAX 23)(50 YRS UP) PN EUMOCOCCAL POLYSACCHARIDE (PPV23) 0.5 ML, IM 03/26/2020,01/10/2013 (PREVNAR 20)(6 WKS UP) PNEUM OCOCCAL CONJUGATE VACCINE 20-VALENT (PCV20), POLYSACCHARIDE [id number] CONJUGATE, ADJUVANT 0.5 ML (PF) IM 05/13/2023 [...] Sex Assigned at Male 09/24/2024 6:46 AM CLINICAL ADMINISTRATOR Legal Sex Male 5:14 PM CDT Gender Identity Male 09/24/2024 6:46 AM CLINICAL ADMINISTRATOR Sexual Orientation Straight 09/24/2024 6: 46 AM CLINICAL ADMINISTRATOR Last Filed Vital Signs Vital Sign Reading [...] [facility] [place] [address] [facility] [address] [address] Richard Fischer, PAJackieC [address] [place] [address] 02/15/2025 3:00 PM CDT Office Visit [facility] At [facility] [address] [place] [address] Xu Falk MD [address] [place] [address] Health Maintenance Due Date Last [...] 03/26/2020, 01/10/2013 Medical Devices Implanted Type Area Pierce And Shave Press Operator Device Identifier Shelf Expiration Date Model / Serial / Lot Ushahidi Tibial Nail Implanted:Qty: 1 on 03/10/2022 by Luis Felipe Chau DO at [facility] Nail Left: Tibia [employer] 10/25/2031 [id number] S / / [id number] Description:[employer] COMP ONETS ON REQUISITION# [id number] Synthes 5.0 Ti Nail Screws Implanted:Qty: 1 on 03/10/2022 by Luis Felipe Chau DO at [facility] Screw Left: [employer] [id number] S / / 2 5 MAR 08, 2022 Synthes 5.0 Ti Nail Screws Implanted:Qty: 1 on 03/10/2022 by Luis Felipe Chau DO at [facility] Screw Left: [employer] [facility] [id number] S / / 2 5 MAR 08, 2022 Synthes 5.0 Ti Nail Screws Implanted:Qty: 1 on 03/10/2022 by Luis Felipe Chau DO at [facility] Screw Left: [employer] [facility] [id number] S / / 2 5 MAR 08, 2022 Procedures Procedure Name Priority Date/Time Associated Diagnosis Comments HEMOGLOBIN A1C Routine 06/09/2024 7:38 AM CLINICAL ADMINISTRATOR Type 2 diabetes mellitus without complication, without long-term current use of insulin ([facility]) COLONOSCOPY REPORT 06/24/2021 9: 21 AM CLINICAL ADMINISTRATOR from Last 3 Months or Most Recently Relevant to Health Maintenance Results * (ABNORMAL) HEMOGLOBIN A1C (06/09/2024 7:38 AM CLINICAL ADMINISTRATOR) HEMOGLOBIN A1C 6.5(H) <5.7 % of total Hgb [facility] Comment: For someone without known diabetes, a [...] children. ESTIMATED AVERAGE GLUCOSE (MG/DL) 140 mg/dL [facility] ESTIMATED AVERAGE GLUCOSE (MMOL/L) 7.7 mmol/L [facility] Comment: FASTING:YES FASTING: YES Test Performed at: [facility] [id number] [address] [place] [address] Cathleen-Lieu Thi Vo Blood 06/09/2024 7:38 AM CLINICAL ADMINISTRATOR 06/09/2024 7:39 AM CLINICAL ADMINISTRATOR us Lila Carrington MD CHEMISTRY ORDERABLES Final R esult [facility] [phone] [place] [address] [place] [address] * COLONOSCOPY REPORT (06/24/2021 9:21 AM CLINICAL ADMINISTRATOR) Narrative Procedure Note Sunny Hill MD - 06/24/2021 9:20 AM CST [facility] Endoscopy Patient Name: Gera Marie Procedure [...] electronically. Number of Addenda: [address]; [place] [address] Sunny Hill MD GI PROCEDURE ORDERABLES Celia l Result from Last 3 Months or Most Recently Relevant to Health Maintenance Insurance RX [employer] Commercial RX LAMB PLANS (INTERNAL) [facility] RX [employer] Commercial [facility] BLUE ACCESS CHOICE [facility] Member Subscriber Plan / Payer (Ef fective 2022-Present) Name:Gera Marie Relation to Subscriber:Self Name:Gera Marie Payer ID:Not on file Group ID:Not on file Type:Other Address: [place] [id number] Advance Directives For more information, please contact: [phone] * Full Code (Latest Code Status on File) Date Activated Date Inactivated Comments 03/10/2022 1:04 PM 03/11/2022 6:56 PM * Full Code Date Activated Date Inactivated Comments 03/10/2022 9:33 AM 03/10/2022 1:04 PM Care Teams Hat Block Bench Hand Relationship Specialty Start Date End Date Lila Carrington MD [address] [place] [phone] PCP - General Internal Medicine 03/09/22
[2024-12-26 10:55] VITALS: BP 155/75; PULSE 67; RESP 20; TEMP 36.3; O2SAT 100; BMI 25.8
[2024-12-26] MEDS: LACTATED RINGERS 1,000 ML 150 ML IV CONT (11:18)
--- NOTE | 2024-12-26 11:44 | WPDANESEPPF ---
Anes - Initial Pre Proc Eval Procedure: Operation Date: 12/26/24 14:00 Proposed Procedures p Esophagogastroduodenoscopy & Colonoscopy - Elmer Mortensen MD Date/Time: 12/26/24 11:44 Surgeon: Elmer Mortensen MD Pre Op Diagnosis: GERD, Other dysphagia, Left lower quadrant pain, Patient Data Age: 69 Gender: M Height: 1.83 m Weight: 86.3 kg Last Vital Signs Temp 36.3 C L 12/26/24 10:55 Pulse 67 12/26/24 10:55 Resp 20 12/26/24 10:55 BP 155/75 H 12/26/24 10:55 Pulse Ox 100 12/26/24 10:55 O2 Del Method Room Air 12/26/24 10:55 Allergies Allergy/AdvReac Type Severity Reaction Status Date / Time No Known Allergies Allergy Verified 12/26/24 10:59 Home Medications ?Medication ?Instructions ?Recorded ?Confirmed ?Type alirocumab 75 mg/mL subcutaneous See Rx Instructions .Route .COMPLEX 03/11/20 12/20/24 History pen injector (Praluent Pen) lisinopril 10 mg tablet 10 mg PO DAILY 03/11/20 12/26/24 History metoprolol succinate 50 mg 50 mg PO DAILY 03/11/20 12/26/24 History tablet,extended release 24 hr ipratropium bromide 21 mcg (0.03 2 spray intranasal TID PRN nasal 11/11/22 12/20/24 Rx %) nasal spray drainage #30 mL gabapentin 300 mg capsule 300 mg PO .COMPLEX PRN pain 05/21/23 12/20/24 History hydroxyzine HCl 25 mg tablet 25 mg PO TID PRN anxiety 05/21/23 12/20/24 History famotidine 20 mg tablet 20 mg PO DAILY PRN GERD #30 tabs 12/15/24 12/20/24 Rx aspirin 81 mg capsule 81 mg PO .COMPLEX 12/20/24 12/26/24 History Patient hx anesthesia problems: none Family hx anesthesia problems: none Results Review: All pre-operative results and documents have been reviewed as part of the pre-operative evaluation. [facility] Past Medical History Medical History (Updated 12/26/24 @ 11:44 by Don Day MD) CAD (coronary artery disease) History of high blood pressure Surgical History Surgical History (Updated 12/26/24 @ 11:44 by Don Day MD) History of coronary artery stent placement Social History Social History Years smoked: 8 Smoking status: Former smoker Tobacco type: cigarettes Additional smoking assessment comments: Quit 40 years ago Alcohol intake: current Living arrangements: with family Spiritual care concerns: No Anes - Eval Final PreProcedure Day of Procedure 12/26/24 11:44 Patient weight: normal Heart: regular rate and rhythm Lungs: clear to auscultation Airway: Mallampati scale class II Neurological: alert and oriented Last oral intake: >/= 8 hours ASA classification: III Emergent: no Anesthetic plan: proceed Anesthesia type and monitoring: general GIVS and standard monitoring Results Review: All pre-operative results and documents have been reviewed as part of the pre-operative evaluation. Informed Consent: The patient's anesthetic plan and its attendant risks and benefits were discussed with the patient/family/POA. Questions were solicited and answers provided to the satisfaction of the patient/family/POA.
--- NOTE | 2024-12-26 12:38 | PM.HPGS ---
History of Present Illness History of Present Illness Consent: Risks, benefits, and alternatives have been discussed and questions answered. Patient agrees to proceed with procedure. Chief complaint: GERD, Other dysphagia, Left lower quadrant pain, Narrative: Gera Marie is a 69 year old male here for first EGD, h/o intermittent dysphagia after pills at throat level, MBS no findings, also had colon polyp in 2020, intermittent lower abdominal pain Review of Systems Review of Systems: All systems reviewed & are unremarkable except as noted in HPI and below PMFSH Past Medical History Medical History (Updated 12/26/24 @ 12:39 by Elmer Mortensen MD) Colon polyp CAD (coronary artery disease) History of high blood pressure Surgical History Surgical History (Updated 12/26/24 @ 11:44 by Don Day MD) History of coronary artery stent placement Social History Social History Years smoked: 8 Smoking status: Former smoker Tobacco type: cigarettes Additional smoking assessment comments: Quit 40 years ago Alcohol intake: current Living arrangements: with family Spiritual care concerns: No Meds Home Medications and Allergies Home Medications ?Medication ?Instructions ?Recorded ?Confirmed ?Type alirocumab 75 mg/mL subcutaneous See Rx Instructions .Route .COMPLEX 03/11/20 12/20/24 History pen injector (Praluent Pen) lisinopril 10 mg tablet 10 mg PO DAILY 03/11/20 12/26/24 History metoprolol succinate 50 mg 50 mg PO DAILY 03/11/20 12/26/24 History tablet,extended release 24 hr ipratropium bromide 21 mcg (0.03 2 spray intranasal TID PRN nasal 11/11/22 12/20/24 Rx %) nasal spray drainage #30 mL gabapentin 300 mg capsule 300 mg PO .COMPLEX PRN pain 05/21/23 12/20/24 History hydroxyzine HCl 25 mg tablet 25 mg PO TID PRN anxiety 05/21/23 12/20/24 History famotidine 20 mg tablet 20 mg PO DAILY PRN GERD #30 tabs 12/15/24 12/20/24 Rx aspirin 81 mg capsule 81 mg PO .COMPLEX 12/20/24 12/26/24 History Allergies Allergy/AdvReac Type Severity Reaction Status Date / Time No Known Allergies Allergy Verified 12/26/24 10:59 Vital Signs Vital Signs - 24 hr 12/26/24 10:55 Temperature 97.4 F L Pulse Rate 67 Respiratory Rate 20 Blood Pressure 155/75 H Pulse Oximetry 100 Oxygen Delivery Room Air Exam Const: General: comfortable and no acute distress HENMT: Face/Nose/Sinus: Normal nares present Eyes: General: appearance normal, both eyes and all related structures Neck: Neck: no JVD Resp: Auscultation: clear to auscultation bilaterally Cardio: Rate: regular rate Rhythm: regular rhythm GI: Inspection: non-distended GI Palp: Yes Soft to palpation Skin: General skin exam: normal color Neuro: Speech: normal speech Extrem: General: normal to inspection Psych: Mental Status: mental status grossly normal Assessment and Plan Assessment and plan (1) History of colon polyps: Code(s): Z86.0100 - Personal history of colon polyps, unspecified Status: Acute Assessment and Plan: colonoscopy (2) LLQ abdominal pain: Code(s): R10.32 - Left lower quadrant pain Status: Acute (3) Esophageal dysphagia: Code(s): R13.19 - Other dysphagia Status: Acute Assessment and Plan: egd
[2024-12-26] MEDS: BENZOCAINE (*SP) 60 ML SPRAY CAN (HURRICAINE) 1 SPRAY MUCOUS MEM (12:44)
--- NOTE | 2024-12-26 12:51 | SUR.OPER ---
EGD ended at 1248, colon began at 1251.
--- NOTE | 2024-12-26 12:52 | S_PTH ---
PATIENT: Gera Marie LOC: [facility]#:[id number] AGE/SX: 69/M ROOM: RE12/26/[address]: Elmer Mortensen MD : 1955 BED: DIS: 12/26/2024 SPEC #: [id number] RECD: 12/26/24 14:14 STATUS: JUNE HOGAN #: [id number] ADORE: 12/26/24 12:[address]: Elmer Mortensen DEPT: [facility] Surgical RECD BY: Nava Alva Tissues: A - Gastric Biopsy B - Esophageal Biopsy C - Colon Polypectomy Procedures: Hematoxylin and Eosin Stain Gross and Microscopic Level 4
[2024-12-26 13:02] VITALS: BP 124/77; PULSE 86; RESP 23; O2SAT 97
[2024-12-26 13:12] VITALS: BP 147/83; PULSE 64; RESP 26; O2SAT 98
[2024-12-26 13:22] VITALS: BP 149/79; PULSE 63; RESP 18; O2SAT 100
== END 2024-12-26 13:44 | disposition home or self-care (01) ==
PROVIDERS: Referring Provider Nurse Practitioner; Visit Provider Internal Medicine Gastroenterology
PROC: 0DJ08ZZ Inspection of Upper Intestinal Tract, Via Natural or Artificial Opening Endoscopic (ICD-10-PCS; CPT 45378; principal; 2024-12-26 14:00)
DX: K63.5 Polyp of colon (principal); K64.8 Other hemorrhoids; K21.9 Gastro-esophageal reflux disease without esophagitis; I25.10 Atherosclerotic heart disease of native coronary artery without angina pectoris; I10 Essential (primary) hypertension; Z79.85 Long-term (current) use of injectable non-insulin antidiabetic drugs; Z79.82 Long term (current) use of aspirin; Z95.5 Presence of coronary angioplasty implant and graft; Z87.891 Personal history of nicotine dependence
CPT/HCPCS: 43239; 45385; 88305; J2003; J2704; J7120

== ENCOUNTER 2025-01-13 14:09 | Outpatient (CLI) | payer BC, SELFPAY ==
--- NOTE | ~2025-01-13 | CT_ITS ---
CT of the Abdomen and Pelvis: Indication: Bone lesions, abdominal pain, abdominal distention Technique: 2.5 mm axial scans were obtained through the abdomen and pelvis following intravenous adm inistration of 100 cc of Omnipaque 350. Dose reduction technique was used on this scan by utilizing a utomated exposure control and iterative reconstruction technique. The dose-length product (DLP) was 5 04.87 mGy-cm. Findings: Scans through the lung bases are unremarkable. 1.8 cm hypodense lesion in the peripheral liver with probable peripheral enhancement, suggestive of h emangioma (axial image 29). Additional small hepatic cyst present. There is an additional 2.3 cm hypo dense mass adjacent to gallbladder fossa, indeterminate (axial image 58). Multiple gallstones are pre sent. The spleen, pancreas, adrenals and kidneys are within normal limits. There are atherosclerotic calcifications of the aorta. No lymphadenopathy. No bowel obstruction or bowel wall thickening. There is no evidence to suggest acute appendicitis. Images through the pelvis were performed. Urinary bladder unremarkable. Prostate gland minimally enla rged. No ascites. No significant osseous abnormality identified. Impression: Cholelithiasis. 2.3 cm indeterminate hypodense hepatic mass adjacent to the gallbladder fossa. Postcontrast hepatic M R recommended to further evaluate. Additional 1.8 cm right hepatic lobe lesion peripherally is more s uggestive of hemangioma, which could also be further evaluated at MR imaging. Reviewed, dictated and finalized at [facility]. Impression: Cholelithiasis. 2.3 cm indeterminate hypodense hepatic mass adjacent to the gallbladder fossa. Postcontrast hepatic MR recommended to further evaluate. Additional 1.8 cm righ t hepatic lobe lesion peripherally is more suggestive of hemangioma, which coul d also be further evaluated at MR imaging.
[2025-01-13 14:38] LABS: Estimated Glomerular Filt Rate > 60
== END 2025-01-13 14:10 | disposition home or self-care (01) ==
PROVIDERS: Visit Provider Nurse Practitioner
DX: R14.0 Abdominal distension (gaseous) (principal); R10.32 Left lower quadrant pain; K80.20 Calculus of gallbladder without cholecystitis without obstruction; R16.0 Hepatomegaly, not elsewhere classified
CPT/HCPCS: 74177; Q9967

== ENCOUNTER 2025-01-31 12:37 | Outpatient (CLI) | payer BC, SELFPAY ==
--- NOTE | ~2025-01-31 | CT_ITS ---
CLINICAL INDICATION: Indeterminate liver lesion COMPARISON: Contrast-enhanced CT examination of the abdomen and pelvis dated 01/13/2025. TECHNIQUE: Multiple contiguous axial images of the abdomen and pelvis were performed both prior to an d following the administration of with 100 mL Omnipaque-350 intravenous contrast. Venous phase imaging was also performed, without delayed imaging. The dose-length product (DLP) was 1389.07 mGy-cm. Automated exposure control and iterative reconstruction technique were employed. FINDINGS/OBSERVATIONS: Visualized lower thorax: 4.4 mm solid nodule within the right lower lobe (axial series, image 6). No additional pulmonary nodules are appreciated. The remainder of the bilateral lung bases are clear. The heart is of normal size, without pericardial effusion. Small hiatal hernia is present. Liver: Three indeterminate foci within the liver. The first is located adjacent to the inferior vena cava in segment 6 measuring 13 x 10 mm. This focus is consistent with a simple cyst which demonstrates fluid attenuation on noncontrast enhanced images , arterial enhanced images and venous phase images. The second focus is also located within segment 6, along the medial most margin of the liver and is i nseparable from portions of the gallbladder. This focus measures 24 x 25 x 23 mm. Dedicated ultrasoun d would likely better elucidate the origin. This focus demonstrates nonrim arterial phase hyperenhanc ement, and venous washout -this lesion is suspicious. The third focus is located within segment 7 along the posterior lateral margin of the liver. This focus measures 23 x 22 x 17 mm. This focus demonstrates nonrim arterial phase hyperenhancement, and venous washout -this lesion is al so suspicious. The remainder of the liver otherwise demonstrates homogeneous enhancement and is not enlarged. Gallbladder and biliary system: The gallbladder is only minimally distended, multiple calcified stones and is otherwise unremarkable, although it is inseparable from the lesion within medial segment 6. Pancreas: The pancreas enhances homogeneously without ductal dilatation. Spleen: The spleen enhances homogeneously and is not enlarged. Kidneys: The bilateral kidneys enhance symmetrically without hydronephrosis or renal calculi. Adrenal glands: Unremarkable. Gastrointestinal tract: Fecal stasis within the colon. Appendix: The appendix is not definitively visualized. However, no pericecal inflammatory change is identified suggest the presence of acute appendicitis. Vasculature: Calcified atherosclerotic disease within the infrarenal abdominal aorta without aneurysmal dilatation . Lymph nodes: No pathologically enlarged or morphologically suspicious lymph nodes within the retroperitoneum or at the root of the mesentery. Pelvic structures: The bladder is only minimally distended, and otherwise unremarkable. The prostate gland is not enlarged. Body wall and musculoskeletal: Small fat-containing umbilical hernia. Age-appropriate degenerative disease within the lumbar spine. IMPRESSION: Lesions within segments 6 and 7 which are suspicious. Focused ultrasound of the lesion within the medial margin of segment 6 is recommended to ascertain th e origin, as it is inseparable from the gallbladder. These findings (size, nonrim arterial enhancement and washout) taken together represent a LI-RADS 5 l esion for which multidisciplinary discussion for management consensus is recommended. Of note, the focus within segment 7 is easily accessible for ultrasound-guided percutaneous biopsy. The lesion within segment 6 would be accessible (although not as easily) for ultrasound-guided biopsy , although the information gained from the peripheral most lesion within segment 7, given the similar enhancement patterns and size would likely be higher, if it represents a metastatic focus from the o riginal primary lesion (presumed to be within the medial margin of segment 6). The more cranial lesion within segment 6 adjacent to the inferior vena cava represents a simple cyst for which no further follow-up is needed. Cholelithiasis. 4.4 mm solid nodule within the left lower lobe for which dedicated chest CT is recommended prior to r ecommending follow-up versus biopsy. Real-time ultrasound and retroareolar area. Every effort will be made to reach the primary referring clinician regarding these results and recomm endations. Once contact has been made, an addendum will be performed. Reviewed, dictated and finalized at location A. IMPRESSION: Lesions within segments 6 and 7 which are suspicious. Focused ultrasound of the lesion within the medial margin of segment 6 is recom mended to ascertain the origin, as it is inseparable from the gallbladder. These findings (size, nonrim arterial enhancement and washout) taken together r epresent a LI-RADS 5 lesion for which multidisciplinary discussion for manageme nt consensus is recommended. Of note, the focus within segment 7 is easily accessible for ultrasound-guided percutaneous biopsy. The lesion within segment 6 would be accessible (although not as easily) for ul trasound-guided biopsy, although the information gained from the peripheral mos t lesion within segment 7, given the similar enhancement patterns and size woul d likely be higher, if it represents a metastatic focus from the original prima ry lesion (presumed to be within the medial margin of segment 6). The more cranial lesion within segment 6 adjacent to the inferior vena cava rep resents a simple cyst for which no further follow-up is needed. Cholelithiasis. 4.4 mm solid nodule within the left lower lobe for which dedicated chest CT is recommended prior to recommending follow-up versus biopsy. Real-time ultrasound and retroareolar area. Every effort will be made to reach the primary referring clinician regarding th van results and recommendations. Once contact has been made, an addendum will be performed.
--- OUTSIDE RECORDS SUMMARY | 2025-01-31 12:41 | XMS_ITS | Encounter Summary ---
Author Organization [facility] Address [address] [place] [address] Care Team Providers Care Truckman Name Role Phone Lila Carrington MD Primary Care Provider [phone] Encounter Details Date Type Department Care Team (Late st Contact Info) Description 04/14/2019 Specialty Pharmacy [facility] [address] [address] Patrice Fishman Social History Tobacco Use Types Packs/Day Years Used Date Smoking Tobacco: Former Cigarettes Q uit: 07/27/1983 Smokeless Tobacco: Never Alcohol Use Standard Drinks/Week Comments Yes 2 (1 standard drink = 0.6 oz pur e alcohol) Sex and Gender Information Value Date Recorded Sex Assigned at Male 09/24/2024 6:46 AM INTERVENTIONAL RADIOLOGY TECH Legal Sex Male 5:14 PM CDT Gender Identity Male 09/24/2024 6:46 AM INTERVENTIONAL RADIOLOGY TECH Sexual Orientation Straight 09/24/2024 6: 46 AM INTERVENTIONAL RADIOLOGY TECH documented as of this encounter Plan of Treatment Upcoming Encounters Date Type Department Care Team (Late st Contact Info) Description 03/06/2025 3:00 PM CDT Office Visit [facility] Heart [facility] V[facility] At [facility] [address] [place] [address] Xu Falk MD [address] [place] [address] documented as of this encounter Visit Diagnoses Not on filedocumented in this encounter Care Teams Truckman Relationship Specialty Start Date End Date Lila Carrington MD [address] [place] [address] PCP - General Internal Medicine 03/09/22 documented as of this encounter
--- OUTSIDE RECORDS SUMMARY | 2025-01-31 12:41 | XMS_ITS | Clinical Summary ---
Author Organization [facility] Address [address] [place] [address] Phone Care Team Providers Care Dishwasher Name Role Phone Silvio Stephens DPM Unavailable [phone] Lila Carrington MD Primary Care Provider [phone] Cielo Hay APRN, SMOKE TESTER Unavailable [phone] Allergies No known active allergies Medications aspirin [...] 06/09/2016 Hammer toe of right foot 06/09/2016 [place] of toe 06/09/2016 Onychomycosis 05/19/2016 HTN (hypertension) 11/12/2015 Hyperlipidemia 11/12/2015 Coronary artery disease invo lving craig coronary artery of craig heart without angina pectoris 11/12/2015 Physical exam [...] Comments Blood Pressure 140/80 07/08/2024 9:36 AM FURNITURE REPAIR TECHNICIAN Pulse 57 07/08/2024 9:36 AM FURNITURE REPAIR TECHNICIAN Temperature 36.2 C (97.1 F) 07/08/2024 9:36 AM FURNITURE REPAIR TECHNICIAN Respiratory Rate 14 07/08/2024 9:36 AM FURNITURE REPAIR TECHNICIAN Oxygen Saturation 97% 07/08/2024 9:36 AM FURNITURE REPAIR TECHNICIAN Inhaled Oxygen Concentration - - Weight 87.4 kg (192 lb 9.6 oz) 07/08/2024 9:36 A M FURNITURE REPAIR TECHNICIAN Height 185.4 cm (6' 1) 07/08/2024 9:36 AM FURNITURE REPAIR TECHNICIAN Body Mass Index 25.41 07/08/2024 9:36 AM FURNITURE REPAIR TECHNICIAN Plan of Treatment Health Maintenance Due Date Last Done Comments Hepatitis C Virus (HCV) Screening 1955 Cologuard 02/14/2000 Immunochemical Fecal Occult Blood 02/14/2000 Respiratory Syncytial Virus (RSV) Immunization (Adult) (1 - Risk 60-74 years 1-dose series) 2015 Zoster Immunization (2 of 3) 06/30/2015 05/05/2015 AAA Screening Ultrasound 02/14/2020 SARS-COV-2 Immunization (3 - season) 2024 06/03/2021, 05/13/2021 Influenza Immunization (#1) 03/27/202505/28, 05/26/2018, 03/02/2017, Additional history exists Colonoscopy 06/24/2031 06/24/2021, 01/02/2014 Colorectal Cancer Screening 06/24/2031 Td Immunization Every 10 Years (Adults With 1 Tdap) 05/13/2033 05/13/2023, 10/29/2012 PSA Discussion Completed 11/05/2015 Pneumococcal Immunization (50+ [...] 4.00 ng/mL 11/05/2015 11:52 AM CDT [facility] Blood specimen (specimen) Venipuncture / Unknown 11/05/2015 7:43 AM CDT 11/05/2015 7:45 AM CDT Narrative [facility] - 11/05/2015 11:52 AM CDT PSA NOTE: The PSA value should be used in conjunction with information available from clinical evaluation and other diagnostic procedures. us Hardy Cuevas MD CHEMISTRY ORDERABLES Final Re sult [facility] [address] [place] [address] * COLONOSCOPY (01/02/2014) us Xu Mckinney DO PROCEDURE/MINOR SURGICAL ORDERA BLES Final Result from Last 3 Months or Most Recently Relevant to Health Maintenance Insurance [facility] Care Teams Dishwasher Relationship Specialty Start Date End Date Lila Carrington MD [address] [place] [phone] PCP - General Adult Medicine 03/11/22 Silvio Stephens DPM Podiatry 06/09/16 Cielo Hay APRN, SMOKE TESTER [address] [address] Nurse Practitioner Advanced Practice Nurse 07/08/24
--- OUTSIDE RECORDS SUMMARY | 2025-01-31 12:41 | XMS_ITS | Clinical Summary ---
Author Organization [facility] Address [address] [place] [address] Phone Care Team Providers Care Oral And Maxillofacial Surgeon Name Role Phone Lila Carrington MD Primary Care Provider [phone] Allergies Active Allergy Reactions Criticality Noted Date [...] 2 WEEKS. 2 Each 6 5 Active gabapentin (NEURONTIN) 100 mg capsule Take 1 Capsule (100 mg) by mouth nightly as needed for Pain. Can take along with 300mg capsules as needed 100 Capsule 3 5 Active gabapentin (NEURONTIN) 300 mg capsuleIndicat ions:Myalgia due to statin TAKE 1-2 CAPSULES NIGHTLY NEEDED FOR PAIN 180 Capsule 5 Active hydrOXYzine HCL (ATARAX) 25 mg tablet TAKE 1 TABLET BY MOUTH THREE TIMES A DAY NEEDED FOR ANXIETY 30 Tablet 5 Active hydrOXYzine HCL (ATARAX) 25 mg tablet TAKE 1 TABLET BY MOUTH THREE TIMES A DAY NEEDED FOR ANXIETY 270 Tablet 5 025 Discontinued Active Problems Patient Care Coordination No te Formatting of this note migh t be different from the original. Xu Falk MD--Receiving Clerk ([facility] @ ) Problem Noted Date Diagnosed Date Substernal chest pain 02/03/2024 Situational anxiety 11/20/2023 Numbness of left foot 09/09/2022 Myalgia due to statin 03/25/2021 Prediabetes 02/27/2017 Atherosclerosis of mi'kmaq co ronary artery of mi'kmaq heart without angina pectoris 11/25/2016 NURYS (obstructive sleep apnea) 11/25/2016 HTN (hypertension), benign 11/25/2016 Hx of partial thyroidectomy 11/25/2016 Statin myopathy 11/25/2016 Fracture of tibia and fibula , shaft, left, closed, initial encounter Hyperlipidemia Resolved Problems Problem Noted Date Diagnosed Date Resolved Date Hyperlipidemia 11/25/2016 02/19/2023 HTN (hypertension) 3 Coronary artery disease 01/25 Encounters Date Type Department Care Team Description 01/13/2025 Refill [facility] Internal Medicine Medical [place] [address] [address] Lila Carrington MD 01/10/2025 External Device Data STL ABSTRACTION Provider, Abstract 01/04/2025 Abstract [facility] Internal Medicine [facility] [address] [address] Lila Carrington MD 12/29/2024 Orders Only [facility] Internal Medicine [facility] [address] [phone] Provider, Abstract 12/29/2024 Abstract [facility] Internal Medicine [facility] [address] [facility] [address] [address] Lila Carrington MD 12/28/2024 Telephone [facility] Internal [facility] [address] [address] Lila Carrington MD Provider Call 12/26/2024 Abstract [facility] Internal [facility] [address] [address] Lila Carrington MD 12/25/2024 Refill [facility] Internal [facility] [address] [address] Lila Carrington MD Myalgia due to statin 12/20/2024 External Device Data STL ABSTRACTION Provider, Abstract 12/13/2024 External Device Data STL ABSTRACTION Provider, Abstract 12/08/2024 Abstract [facility] [address] [facility] [address] [address] Lila Carrington MD 11/01/2024 Telephone [facility] Heart [facility] Vascular At [place] [address] [address] [place] [address] Xu Falk MD Results (Needs stress test & ekg) from Last 3 Months Immunizations Immunization Administration Dates Next Due (ADACEL/BOOSTRIX)(10 YR UP) TDAP VACCINE, 0.5ML, IM 05/13/2023,10/29/2012 (PFIZER)(12 YR UP) COVID-19 VACCINE - EMERGENCY USE AUTHORIZATION, MRNA, [id number](PF) 30 MCG/0.3 ML IM SUSP 06/03/2021,05/13/2021 (PNEUMOVAX 23)(50 YRS UP) PN EUMOCOCCAL POLYSACCHARIDE (PPV23) 0.5 ML, IM 03/26/2020,01/10/2013 (PREVNAR 20)(6 WKS UP) PNEUM OCOCCAL CONJUGATE VACCINE 20-VALENT (PCV20), POLYSACCHARIDE [id number] CONJUGATE, ADJUVANT 0.5 ML (PF) IM 05/13/2023 [...] Sex Assigned at Male 09/24/2024 6:46 AM LANDSCAPE DRAFTER Legal Sex Male 5:14 PM CDT Gender Identity Male 09/24/2024 6:46 AM LANDSCAPE DRAFTER Sexual Orientation Straight 09/24/2024 6: 46 AM LANDSCAPE DRAFTER Last Filed Vital Signs Vital Sign Reading [...] Description 03/06/2025 3:00 PM CDT Office Visit [facility] At [place] [address] [place] [phone] Xu Falk MD [facility] [address] [place] [address] Health Maintenance Due Date Last Done Comments FIT-DNA Q 3 years 02/14/2000 FIT/FOBT Q 1 year 02/14/2000 Flex Sig/CT Colonography Q 5 years 02/14/2000 RSV VACCINE (60+ or ) (1 - Risk 60-74 years 1-dose series) 2015 ZOSTER VACCINE (2 of 3) 06/30/2015 05/05/2015 Abdominal Aortic Aneurysm (A AA) Screening 02/14/2020 COVID-19 Vaccine (3 - 2023-2 5 season) 2024 06/03/2021, 05/13/2021 INFLUENZA VACCINE (#1) 2025 3, 09/24/2020, 06/22/2019, Additional history exists Pre-Diabetes and Diabetes Screening 06/09/2027 06/09/2024, 11/23/2023, 04/20/2023, Additional history exists COLORECTAL SCREENING 12/26/2029 12/26/2024, 06/24/2021, 06/24/2021, Additional history exists Colorectal Cancer Screening 12/26/2029 DTAP/TDAP/TD VACCINES (3 - T d or Tdap) 05/13/2033 05/13/2023, 10/29/2012 PNEUMOCOCCAL VACCINE 50+ YEARS Completed 1 , 03/26/2020, 01/10/2013 Medical Devices Implanted Type Area Battery Container Tester Device Identifier Shelf Expiration Date Model / Serial / Lot Synthes Tibial Nail Implanted:Qty: 1 on 03/10/2022 by Luis Felipe Chau DO at [facility] Nail Left: Tibia SYNTHES [employer] [facility] 10/25/2031 [id number] S / / [id number] Description:[id number] COMP ONETS ON REQUISITION# [id number] Synthes 5.0 Ti Nail Screws Implanted:Qty: 1 on 03/10/2022 by Luis Felipe Chau DO at [facility] Screw Left: Tibia [employer] [facility] [id number] S / / 2 5 MAR 08, 2022 Synthes 5.0 Ti Nail Screws Implanted:Qty: 1 on 03/10/2022 by Luis Felipe Chau DO at [facility] Screw Left: Tibia [employer] [place] [id number] S / / 2 5 MAR 08, 2022 Synthes 5.0 Ti Nail Screws Implanted:Qty: 1 on 03/10/2022 by Luis Felipe Chau DO at [facility] Screw Left: Tibia [employer] [facility] [id number] S / / 2 5 MAR 08, 2022 Procedures Procedure Name Priority Date/Time Associated Diagnosis Comments COLONOSCOPY REPORT Routine 12/26/2024 10 :52 AM CDT HEMOGLOBIN A1C Routine 06/09/2024 7:38 AM LANDSCAPE DRAFTER Type 2 diabetes mellitus without complication, without long-term current use of insulin ([facility]) from Last 3 Months or Most Recently Relevant to Health Maintenance Results * COLONOSCOPY REPORT (12/26/2024 10:52 AM CDT) us Abstract Provider GI PROCEDURE ORDERABLES Final Result [facility], BRIANA VEGAS MD [facility]# [id number] [address] [address] * (ABNORMAL) HEMOGLOBIN A1C (06/09/2024 7:38 AM LANDSCAPE DRAFTER) HEMOGLOBIN A1C 6.5(H) <5.7 % of total Hgb NERI Ted Comment: For someone without known diabetes, a [...] children. ESTIMATED AVERAGE GLUCOSE (MG/DL) 140 mg/dL Accolo carlos Jean ESTIMATED AVERAGE GLUCOSE (MMOL/L) 7.7 mmol/L [facility]: FASTING:YES FASTING: YES Test Performed at: [facility] [address] [place] [address] Anderson Lockwood Blood 06/09/2024 7:38 AM LANDSCAPE DRAFTER 06/09/2024 7:39 AM LANDSCAPE DRAFTER Lila Carrington MD CHEMISTRY ORDERABLES Final R esult [facility] [phone] [facility] [address] [place] [address] from Last 3 Months or Most Recently Relevant to Health Maintenance Insurance RX [employer] Commercial RX LAMB PLANS (INTERNAL) [facility] [employer] RX [employer] Commercial BCBS BLUE ACCESS CHOICE MVA Advance Directives For more information, please contact: [phone] * Full Code (Latest Code Status on File) Date Activated Date Inactivated Comments 03/10/2022 1:04 PM 03/11/2022 6:56 PM * Full Code Date Activated Date Inactivated Comments 03/10/2022 9:33 AM 03/10/2022 1:04 PM Care Teams Oral And Maxillofacial Surgeon Relationship Specialty Start Date End Date Lila Carrington MD [address] [place] [phone] PCP - General Internal Medicine 03/09/22
== END 2025-01-31 12:38 | disposition home or self-care (01) ==
PROVIDERS: Visit Provider Nurse Practitioner
DX: K76.9 Liver disease, unspecified (principal); R93.2 Abnormal findings on diagnostic imaging of liver and biliary tract; K80.20 Calculus of gallbladder without cholecystitis without obstruction
CPT/HCPCS: 74178; Q9967

== ENCOUNTER 2025-02-02 16:03 | Outpatient (CLI) | payer BC, SELFPAY ==
--- OUTSIDE RECORDS SUMMARY | 2025-02-02 16:06 | XMS_ITS | Encounter Summary ---
Author Organization [facility] Address [address] [place] [address] Care Team Providers Care Mac Operator Name Role Phone Lila Carrington MD Primary Care Provider [phone] Encounter Details Date Type Department Care Team (Late st Contact Info) Description 01/31/2025 External Device Data STL ABSTRACTION Provider, Abstract NO ADDRESS ON FILE Social History Tobacco Use Types Packs/Day Years Used Date Smoking Tobacco: Former Cigarettes 0.5 5 0 07/27/1978 - 07/27/1983 Smokeless Tobacco: Former Chew Alcohol Use Standard Drinks/Week Comments Yes 2 (1 standard drink = 0.6 oz pure alcohol) I drink a couple of beers over the weekend Sex and Gender Information Value Date Recorded Sex Assigned at Male 09/24/2024 6:[address]ER OPERATOR Legal Sex Male 5:14 PM CDT Gender Identity Male 09/24/2024 6:[address] PACKER OPERATOR Sexual Orientation Straight 09/24/2024 6: [address] PACKER OPERATOR documented as of this encounter Plan of Treatment Upcoming Encounters Date Type Department Care Team (Late st Contact Info) Description 03/06/2025 3:00 PM CDT Office Visit [facility] Heart and Vascular At [address] [place] [address] Xu Falk MD [facility] [address] [place] [address] documented as of this encounter Visit Diagnoses Not on filedocumented in this encounter Care Teams Mac Operator Relationship Specialty Start Date End Date Lila Carrington MD [address] [facility] [address] [place] [address] PCP - General Internal Medicine 03/09/22 documented as of this encounter
--- OUTSIDE RECORDS SUMMARY | 2025-02-02 16:06 | XMS_ITS | Encounter Summary ---
Author Organization [facility] Address [address] [place] [address] Care Team Providers Care Supervisor Prep Name Role Phone Lila Carrington MD Primary Care Provider [phone] Encounter Details Date Type Department Care Team (Late st Contact Info) Description 04/14/2019 Specialty Pharmacy [facility] [address] [address] Patrice Fishman Social History Tobacco Use Types Packs/Day Years Used Date Smoking Tobacco: Former Cigarettes Q uit: 07/27/1983 Smokeless Tobacco: Never Alcohol Use Standard Drinks/Week Comments Yes 2 (1 standard drink = 0.6 oz pur e alcohol) Sex and Gender Information Value Date Recorded Sex Assigned at Male 09/24/2024 6:46 AM CONSERVATION ENGINEER Legal Sex Male 5:14 PM CDT Gender Identity Male 09/24/2024 6:46 AM CONSERVATION ENGINEER Sexual Orientation Straight 09/24/2024 6: 46 AM CONSERVATION ENGINEER documented as of this encounter Plan of Treatment Upcoming Encounters Date Type Department Care Team (Late st Contact Info) Description 03/06/2025 3:00 PM CDT Office Visit [facility] Heart and Vascular At [facility] [address] [facility] [address] [place] [address] Xu Falk MD [address] [place] [address] documented as of this encounter Visit Diagnoses Not on filedocumented in this encounter Care Teams Supervisor Prep Relationship Specialty Start Date End Date Lila Carrington MD [address] [facility] [address] [place] [address] PCP - General Internal Medicine 03/09/22 documented as of this encounter
--- OUTSIDE RECORDS SUMMARY | 2025-02-02 16:06 | XMS_ITS | Clinical Summary ---
Author Organization [facility] Address [address] [place] [address] Phone Care Team Providers Care Human Resource Analyst Name Role Phone Lila Carrington MD Primary Care Provider [phone] Allergies Active Allergy Reactions Criticality Noted Date [...] be different from the original. Xu Falk MD--Adolescent Specialist ([facility] @ ) Problem Noted Date Diagnosed Date Substernal chest pain 02/03/2024 Situational anxiety 11/20/2023 Numbness of left foot 09/09/2022 Myalgia due to statin 03/25/2021 Prediabetes 02/27/2017 Atherosclerosis of [place] co ronary artery of [place] heart without angina pectoris 11/25/2016 NURYS (obstructive sleep apnea) 11/25/2016 HTN (hypertension), benign 11/25/2016 Hx of partial thyroidectomy 11/25/2016 Statin myopathy 11/25/2016 Fracture of tibia and fibula , shaft, left, closed, initial encounter Hyperlipidemia Resolved Problems Problem Noted Date Diagnosed Date Resolved Date Hyperlipidemia 11/25/2016 02/19/2023 HTN (hypertension) 3 Coronary artery disease 01/25 Encounters Date Type Department Care Team Description 01/31/2025 External Device Data ST[facility] ABSTRACTION Provider, Abstract 01/31/2025 External Device Data [facility] ABSTRACTION Provider, Abstract 01/31/2025 External Device Data [place] ABSTRACTION Provider, Abstract 01/13/2025 [facility] Internal Medicine Medical [place] [facility] [address] [phone] Lila Carrington MD 01/10/2025 External Device Data [facility] ABSTRACTION Provider, Abstract 01/04/[address] [facility] Internal [facility] [place] [address] [address] Lila Carrington MD 12/29/[address] [facility] Internal [facility] [address] [place] [address] [address] Provider, Abstract 12/29/2024 Abstract [facility] [place] [address] [address] Lila Carrington MD 12/28/2024 Telephone [facility] [address] [address] [address] Lila Carrington MD Provider Call 12/26/2024 Abstract [facility] [address] [address] Lila Carrington MD 12/25/2024 Refill [facility] [place] [address] [address] Lila Carrington MD Myalgia due to statin 12/20/2024 External Device Data [facility] ABSTRACTION Provider, Abstract 12/13/2024 External Device Data [facility] ABSTRACTION Provider, Abstract 12/08/2024 Abstract [facility] [address] [address] [address] Lila Carrington MD from Last 3 Months Immunizations Immunization Administration Dates Next Due (ADACEL/BOOSTRIX)(10 YR UP) TDAP VACCINE, 0.5ML, IM 05/13/2023,10/29/2012 (PFIZER)(12 YR UP) COVID-19 VACCINE - EMERGENCY USE AUTHORIZATION, MRNA, [id number](PF) 30 MCG/0.3 ML IM SUSP 06/03/2021,05/13/2021 (PNEUMOVAX 23)(50 YRS UP) PN EUMOCOCCAL POLYSACCHARIDE (PPV23) 0.5 ML, IM 03/26/2020,01/10/2013 (PREVNAR 20)(6 WKS UP) PNEUM OCOCCAL CONJUGATE VACCINE 20-VALENT (PCV20), POLYSACCHARIDE [id number] CONJUGATE, ADJUVANT 0.5 ML (PF) IM 05/13/2023 [...] Sex Assigned at Male 09/24/2024 6:46 AM UMBRELLA CUTTER Legal Sex Male 5:14 PM CDT Gender Identity Male 09/24/2024 6:46 AM UMBRELLA CUTTER Sexual Orientation Straight 09/24/2024 6: 46 AM UMBRELLA CUTTER Last Filed Vital Signs Vital Sign Reading [...] Description 03/06/2025 3:00 PM CDT Office Visit [facility] At [facility] [address] [place] [phone] Xu Falk MD [facility] [address] [place] [address] Health Maintenance Due Date Last [...] 2024 06/03/2021, 05/13/2021 INFLUENZA VACCINE (#1) 2025 , 09/24/2020, 06/22/2019, Additional history exists Pre-Diabetes and Diabetes Screening 06/09/2027 06/09/2024, 11/23/2023, 04/20/2023, Additional history exists COLORECTAL SCREENING 12/26/2029 12/26/2024, 06/24/2021, 06/24/2021, Additional history exists Colorectal Cancer Screening 12/26/2029 DTAP/TDAP/TD VACCINES (3 - T d or Tdap) 05/13/2033 05/13/2023, 10/29/2012 PNEUMOCOCCAL VACCINE 50+ YEARS Completed 1 , 03/26/2020, 01/10/2013 Medical Devices Implanted Type Area Mounter [employer]col[employer] Device Identifier Shelf Expiration Date Model / Serial / Lot Synthes Tibial Nail Implanted:Qty: 1 on 03/10/2022 by Luis Felipe Chau DO at [facility] Nail Left: Tibia SYNTHES [employer] [facility] 10/25/2031 [id number] S / / [id number] Description:[employer] COMP ONETS ON REQUISITION# [id number] Synthes 5.0 Ti Nail Screws Implanted:Qty: 1 on 03/10/2022 by Luis Felipe Chau DO at [facility] Screw Left: Tibia [employer] [id number] S / / 2 5 MAR 08, 2022 Synthes 5.0 Ti Nail Screws Implanted:Qty: 1 on 03/10/2022 by Luis Felipe Chau DO at [facility] Screw Left: Tibia [employer] [id number] S / / 2 5 MAR 08, 2022 Synthes 5.0 Ti Nail Screws Implanted:Qty: 1 on 03/10/2022 by Luis Felipe Chau DO at [facility] Screw Left: Tibia [employer] [id number] S / / 2 5 MAR 08, 2022 Procedures Procedure Name Priority Date/Time Associated Diagnosis Comments COLONOSCOPY REPORT Routine 12/26/2024 10 :52 AM CDT HEMOGLOBIN A1C Routine 06/09/2024 7:38 AM UMBRELLA CUTTER Type 2 diabetes mellitus without complication, without long-term current use of insulin ([facility]) from Last 3 Months or Most Recently Relevant to Health Maintenance Results * COLONOSCOPY REPORT (12/26/2024 10:52 AM CDT) us Abstract Provider GI PROCEDURE ORDERABLES Final Result Performing Organization Address City/State/[facility] de Phone Number [facility], BRIANA VEGAS MD CLMD# [id number] [address] [address] * (ABNORMAL) HEMOGLOBIN A1C (06/09/2024 7:38 AM UMBRELLA CUTTER) HEMOGLOBIN A1C 6.5(H) <5.7 % of total Hgb [facility] Comment: For someone without known diabetes, [...] children. ESTIMATED AVERAGE GLUCOSE (MG/DL) 140 mg/dL [facility] ESTIMATED AVERAGE GLUCOSE (MMOL/L) 7.7 mmol/L [facility] Comment: FASTING:YES FASTING: YES Test Performed at: [facility] [place] [address] [place] [address] Anderson Copeland Blood 06/09/2024 7:38 AM UMBRELLA CUTTER 06/09/2024 7:39 AM UMBRELLA CUTTER us Lila Carrington MD CHEMISTRY ORDERABLES Final R esult Performing Organization Address City/[facility]/ZIP Code Phone Number [facility] [phone] [place] [address] [place] [address] from Last 3 Months or Most Recently Relevant to Health Maintenance Insurance RX EMDEON Commercial RX LAMB PLANS (INTERNAL) [facility] Plans RX [employer] Commercial [facility] BLUE ACCESS CHOICE MVA Advance Directives For more information, please contact: [phone] * Full Code (Latest Code Status on File) Date Activated Date Inactivated Comments 03/10/2022 1:04 PM 03/11/2022 6:56 PM * Full Code Date Activated Date Inactivated Comments 03/10/2022 9:33 AM 03/10/2022 1:04 PM Care Teams Human Resource Analyst Relationship Specialty Start Date End Date Lila Carrington MD [address] [place] [phone] PCP - General Internal Medicine 03/09/22
[2025-02-02 16:25] LABS: Hematocrit 42.0 % (42.0-52.0); Hemoglobin 13.7 g/dL (14.0-18.0); Mean Corpuscular HGB Conc 32.6 g/dl (32-36); Mean Corpuscular Hemoglobin 28.1 pg (26-34); Mean Corpuscular Volume 86.1 fl (80-100); Platelet Count Result 242 k/mm3 (150-375); Red Blood Count 4.88 M/mm3 (4.6-6.20); White Blood Count 6.5 K/mm3 (4.5-10.0)
[2025-02-02 17:10] LABS: Alanine Aminotransferase 28 U/L (6-50); Albumin Level 4.2 g/dL (3.5-5.1); Alkaline Phosphatase 57 U/L (38-126); Anion Gap 8 mmol/L (4-12); Aspartate Amino Transferase 29 U/L (17-59); Bilirubin,Total 0.3 mg/dL (0.2-1.3); Blood Urea Nitrogen 22 mg/dL (9-20); Calcium 9.3 mg/dL (8.4-10.2); Carbon Dioxide 25 mmol/L (22-30); Chloride 105 mmol/L (98-107); Estimated Glomerular Filt Rate > 60; Glucose 110 mg/dL (65-110); Potassium 4.0 mmol/L (3.4-5.0); Sodium 138 mmol/L (137-145); Total Protein 7.3 g/dL (6.3-8.2)
[2025-02-02 17:40] LABS: Carcinoembryonic Antigen 2.4 ng/mL (0.0-3.0)
[2025-02-04 07:09] LABS: CA 19-9 7 U/mL (0-35)
== END 2025-02-02 16:04 | disposition home or self-care (01) ==
LOC: ANHLAB 16:04
PROVIDERS: Visit Provider Nurse Practitioner
DX: R93.2 Abnormal findings on diagnostic imaging of liver and biliary tract (principal); K76.9 Liver disease, unspecified
CPT/HCPCS: 36415; 80053; 82105; 82378; 85027; 86301

== ENCOUNTER 2025-05-19 16:26 | Emergency (ER) | payer BC, SELFPAY ==
--- NOTE | ~2025-05-19 | US_ITS ---
LIMITED ABDOMINAL ULTRASOUND INDICATION:RUQ pain, cholelithiasis COMPARISON: None. FINDINGS: Liver: Visualized portions of the liver are normal. Common bile duct: Normal in size. Gallbladder: Cholelithiasis with thickened gallbladder wall measuring 3.4 mm. There is no pericholecystic fluid. Gillis's sign: Not evaluated IMPRESSION: Cholelithiasis with thickened gallbladder wall. There is no pericholecystic fluid. Reviewed, dictated and finalized at location S. IMPRESSION: Cholelithiasis with thickened gallbladder wall. There is no pericholecystic flu id.
--- NOTE | ~2025-05-19 | CT_ITS ---
CT abdomen pelvis w con INDICATION:epigastric/RUQ pain radiating to back . COMPARISON: 01/31/2025 TECHNIQUE: Axial images of the abdomen and pelvis were obtained following infusion of 100 mL Isovue 300. Dose optimization technique was utilized. FINDINGS: The lung bases are clear. The liver parenchyma is unremarkable. Low density lesions within the liver measuring up to 2.3 cm noted. This is stable. Cholelithiasis is unchanged. The pancreas and spleen are normal in appearance. The adrenal glands are symmetric in size. The kidneys demonstrate symmetric uptake and excretion of contrast. No cystic mass is evident. There is no solid mass. There is no hydronephrosis. Evaluation of the stomach and bowel loops are limited due to lack of oral contrast. The bladder and rectum are normal. No free intraperitoneal fluid or air is evident. There is no significant retroperitoneal lymphadenopathy. The aorta, visceral vessels and renal arteries demonstrate normal caliber and patency. The lower thoracic and lumbar vertebrae are in normal alignment. IMPRESSION: Suspicious low density lesion in the liver measuring up to 2.3 cm are stable. Cholelithiasis is unchanged. Follow-up ultrasound is recommended. All CT scans at this facility are performed using low dose modulation techniques as appropriate to perform exam including the following: automated exposure control; use of iterative reconstruction technique; adjustment of the mA and/or kV according to patient size (this includes techniques or standardized protocols for targeted exams where dose is matched to indication/reason for exam). Reviewed, dictated and finalized at location S. IMPRESSION: Suspicious low density lesion in the liver measuring up to 2.3 cm are stable. Cholelithiasis is unchanged. Follow-up ultrasound is recommended. All CT scans at this facility are performed using low dose modulation techniqu es as appropriate to perform exam including the following: automated exposure c ontrol; use of iterative reconstruction technique; adjustment of the mA and/or kV according to patient size (this includes techniques or standardized protocol s for targeted exams where dose is matched to indication/reason for exam).
[2025-05-19 16:31] VITALS: BP 148/68; PULSE 56; RESP 18; TEMP 36.6; O2SAT 100
[2025-05-19 16:44] LABS: Hematocrit 41.9 % (42.0-52.0); Hemoglobin 13.8 g/dL (14.0-18.0); Immature Granulocyte Percent A 0.4 % (0-0.5); Lymphocytes Absolute Auto 2.05 K/mm3 (0.9-3.2); Mean Corpuscular HGB Conc 32.9 g/dl (32-36); Mean Corpuscular Hemoglobin 28.4 pg (26-34); Mean Corpuscular Volume 86.2 fl (80-100); Nucleated Red Blood Cells Absolute Auto 0.000 K/mm3 (0.0-0.012); Nucleated Red Blood Cells Perc 0.0 % (0.0-0.2); Platelet Count Result 234 k/mm3 (150-375); Red Blood Count 4.86 M/mm3 (4.6-6.20); White Blood Count 9.4 K/mm3 (4.5-10.0)
[2025-05-19 16:58] LABS: Alanine Aminotransferase 28 U/L (6-50); Albumin Level 4.2 g/dL (3.5-5.1); Alkaline Phosphatase 49 U/L (38-126); Anion Gap 7 mmol/L (4-12); Aspartate Amino Transferase 41 U/L (17-59); Bilirubin,Total 0.4 mg/dL (0.2-1.3); Blood Urea Nitrogen 18 mg/dL (9-20); Calcium 9.1 mg/dL (8.4-10.2); Carbon Dioxide 29 mmol/L (22-30); Chloride 100 mmol/L (98-107); Estimated CRCL calculation 63 ml/min; Estimated Glomerular Filt Rate > 60; Glucose 191 mg/dL (65-110); Lipase 38 U/L (23-300); Potassium 4.0 mmol/L (3.4-5.0); Sodium 136 mmol/L (137-145); Total Protein 6.9 g/dL (6.3-8.2)
--- NOTE | 2025-05-19 17:14 | PC.NURSE ---
Pt asking for pain meds. EDP made aware. No new orders at this time
--- NOTE | 2025-05-19 17:20 | ECG_ITS ---
Test Date: 2025-05-19 17:46:27 Measurements Intervals [place] Rate: 76 P: 37 CO: 136 QRS: 120 QRSD: 103 T: 85 QT: 388 QTc: 438 Interpretive Statements SINUS RHYTHM LEFT POSTERIOR FASCICULAR BLOCK BORDERLINE T WAVE ABNORMALITY- HIGH LATERAL LEADS ABNORMAL ECG No previous ECG available for comparison Electronically Signed On 05-19-2025 21:04:37 CDT by Orlando Sanchez D.O.
--- NOTE | 2025-05-19 17:23 | ED.ABDPAIN ---
HPI - Abdominal Pain General Chief Complaint: Abdominal Pain Stated Complaint: abd pain x 1 hour Time Seen by Provider: 05/19/25 17:09 Source: patient Mode of arrival: ambulatory Limitations: no limitations History of Present Illness HPI narrative: Patient is a 70 y/o male who presents to the ED with c/o ABD pain. Patient reports pain began a few hours ago tonight. Present in epigastric and RUQ and radiates around to his R side. Denies ever having pain like this before. Hx of cholelithiasis. Also reports history of a liver biopsy a few weeks ago which was benign. Reports nausea, dry heaving. Denies fevers, diarrhea, constipation, urinary complaints. Denies history of kidney stones. Denies chest pain, shortness breath. Related Data Home Medications ?Medication ?Instructions ?Recorded ?Confirmed ?Last Taken ?Type alirocumab 75 mg/mL subcutaneous See Rx Instructions .Route .COMPLEX 03/11/20 01/24/25 Unknown History pen injector (Praluent Pen) lisinopril 10 mg tablet 10 mg PO DAILY 03/11/20 01/24/25 12/25/24 History metoprolol succinate 50 mg 50 mg PO DAILY 03/11/20 01/24/25 12/25/24 History tablet,extended release 24 hr gabapentin 300 mg capsule 300 mg PO .COMPLEX PRN pain 05/21/23 01/24/25 Unknown History hydroxyzine HCl 25 mg tablet 25 mg PO TID PRN anxiety 05/21/23 01/24/25 Unknown History aspirin 81 mg capsule 81 mg PO .COMPLEX 12/20/24 01/24/25 12/25/24 History Allergies Allergy/AdvReac Type Severity Reaction Status Date / Time No Known Allergies Allergy Verified 05/19/25 16:35 Review of Systems Review of Systems: All systems reviewed & are unremarkable except as noted in HPI. All systems reviewed & are unremarkable except as noted in HPI and below PMFSH Past Medical History Medical History Colon polyp CAD (coronary artery disease) History of high blood pressure Surgical History Surgical History History of thyroid surgery Hx of knee surgery History of coronary artery stent placement Family History Family History Grandparent Breast cancer Diabetes mellitus Heart disease Mother Heart disease Hypertension Father Hypertension Sibling Hypertension Social History Social History Years smoked: 8 Smoking status: Former smoker Tobacco type: cigarettes Additional smoking assessment comments: Quit 40 years ago Alcohol intake: current Drinks per week: 4 Substance use: never Substance use type: does not use Do You Feel Safe in your Home?: Yes Lack of Transportation: No Lack of Food: Never True Current Housing: I Have Housing Concerned About Future Housing: No Difficulty Paying Gas/Electric Bills: No Difficulty Paying for Meds: No Currently Unemployed: No Education: Associate Degree Difficulty w/ Childcare or Family Care: No Living arrangements: with family Spiritual care concerns: No Exam Narrative: GENERAL: Uncomfortable appearing, obese with BMI of 32.8, in mild acute distress due to pain. HEAD: Normocephalic, atraumatic. RESPIRATORY: Airway patent, respirations nonlabored. Clear to auscultation bilaterally, no rales, rhonchi, wheezing. CARDIOVASCULAR: Regular rate and rhythm without murmurs, rubs, or gallops. ABDOMINAL: Soft, moderate tenderness to palpation epigastric region, right upper quadrant, nondistended. Normoactive BS. MUSCULOSKELETAL: Moves all extremities. No gross deformities. SKIN: Warm, dry, normal color. NEURO: A&O X3. Speech clear. Cranial nerves II-XII grossly intact. Steady gait. No ataxic movements. PSYCHIATRIC: Appropriate mood and affect. Normal interaction. Course Vital Signs Vital signs: Vital Signs Temperature 97.9 F 05/19/25 16:31 Pulse Rate 56 L 05/19/25 16:31 Respiratory Rate 18 05/19/25 16:31 Blood Pressure 148/68 H 05/19/25 16:31 Pulse Oximetry 100 05/19/25 16:31 Oxygen Delivery Room Air 05/19/25 16:31 Temperature 97.9 F 05/19/25 16:31 Pulse Rate 56 L 05/19/25 16:31 Respiratory Rate 18 05/19/25 16:31 Blood Pressure 148/68 H 05/19/25 16:31 Pulse Oximetry 100 05/19/25 16:31 Oxygen Delivery Room Air 05/19/25 16:31 MDM - Abdominal Pain MDM Narrative Medical decision making narrative: Patient presented to ED with several hour onset of epigastric and right upper quadrant abdominal pain, associated nausea and dry heaving. Reports history of cholelithiasis. Patient mildly uncomfortable appearing upon my evaluation. Vital signs are stable. Afebrile here. Laboratory studies are fairly unremarkable. No leukocytosis or significant anemia. Stable electrolytes. Stable kidney function. Normal LFTs and lipase. UA without evidence of infection. EKG without ischemic changes. Troponin undetectable. CT scan of abdomen/pelvis was obtained showing stable liver lesion, cholelithiasis. Right upper quadrant ultrasound was obtained and showing cholelithiasis with gallbladder wall thickening. No pericholecystic fluid. Patient still with moderate pain throughout right upper quadrant despite additional dose of morphine. Will give additional pain control. He does mention that he has previously seen Dr. Chandra with general surgery for his GB and was advised to have it removed after liver lesion w/u. Will discuss with General surgery now. Discussed case with Dr. Valdivia, general surgery, advised pain control, low-fat diet, follow-up with Dr. Chandra to schedule surgery as outpatient. Discussed these recommendations with patient. He is in agreement with plan. He is feeling improved with supportive therapy. Feels comfortable going home. Will prescribe pain and nausea medicine for home. Discussed strict return precautions. Patient voiced understanding. Discharged in stable condition. Medical Records Attestation: I reviewed the patient's medical records. Lab Data Attestation: I reviewed the patient's lab results. 05/19/25 16:36 05/19/25 16:36 Labs: Lab Results 05/19/25 05/19/25 Range/Units 16:36 18:44 WBC 9.4 (4.5-10.0) K/mm3 RBC 4.86 (4.6-6.20) M/mm3 Hgb 13.8 L (14.0-18.0) g/dL Hct 41.9 L (42.0-52.0) % MCV 86.2 (80-100) fl MCH 28.4 (26-34) pg MCHC 32.9 (32-36) g/dl RDW 13.2 (11.5-14.5) % Plt Count 234 (150-375) k/mm3 MPV 10.4 (7.4-10.4) fl Immature Gran % (Auto) 0.4 (0-0.5) % Neut % (Auto) 68.6 (45.5-73.1) % Lymph % (Auto) 21.9 (18.3-44.2) % [place] % (Auto) 7.6 (2.6-8.5) % Eos % (Auto) 1.1 (0-4.4) % Baso % (Auto) 0.4 (0.2-1.2) % Lymph # (Auto) 2.05 (0.9-3.2) K/mm3 [place] # (Auto) 0.7 H (0.1-0.6) K/mm3 Eos # (Auto) 0.1 (0-0.3) K/mm3 Baso # (Auto) 0.0 (0.0-0.1) K/mm3 Abs Immat Gran (auto) 0.04 H (0.00-0.031) K/mm3 Absolute Neuts (auto) 6.4 (1.3-6.7) K/mm3 Absolute Nucleated RBC 0.000 (0.0-0.012) K/mm3 Nucleated RBC % 0.0 (0.0-0.2) % Sodium 136 L (137-145) mmol/L Potassium 4.0 (3.4-5.0) mmol/L Chloride 100 (98-107) mmol/L Carbon Dioxide 29 (22-30) mmol/L Anion Gap 7 (4-12) mmol/L BUN 18 (9-20) mg/dL Creatinine 1.02 (0.7-1.3) mg/dL Estim Creat Clear Calc 63 ml/min Estimated GFR > 60 (59 - ) Glucose 191 H (65-110) mg/dL Calcium 9.1 (8.4-10.2) mg/dL Total Bilirubin 0.4 (0.2-1.3) mg/dL AST 41 (17-59) U/L ALT 28 (6-50) U/L Alkaline Phosphatase 49 (38-126) U/L Troponin I < 0.012 (0.000-0.034) ng/mL Total Protein 6.9 (6.3-8.2) g/dL Albumin 4.2 (3.5-5.1) g/dL Lipase 38 (23-300) U/L Urine Color Dark yellow (Yellow) Urine Appearance Clear (Clear) Urine pH 8.0 (5.0-9.0) Ur Specific [place] > 1.045 H (1.001-1.035) Urine Protein Trace (Negative) mg/dL Urine Glucose (UA) Negative (Negative) mg/dL Urine Ketones Negative (Negative) mg/dL Ur Blood (Man) Negative (Negative) Urine Nitrate Negative (Negative) Urine Bilirubin Negative (Negative) Urine Urobilinogen 0.2 (<2.0) mg/dL Leukocyte Esterase Rfl Negative (Negative) CHRIS/UL Urine RBC 0-2 (0-2) /hpf Urine WBC 0-5 (0-3) /hpf Ur Squamous Epith Cells None seen (Few) /hpf Urine Bacteria None seen /hpf Urine Casts 0-2 Imaging Data Attestation: I personally reviewed and interpreted this imaging study as follows: Radiologist's impression: ITS Impressions Abdomen/Pelvis CT 05/19/25 17:58 IMPRESSION: Suspicious low density lesion in the liver measuring up to 2.3 cm are stable. Cholelithiasis is unchanged. Follow-up ultrasound is recommended. All CT scans at this facility are performed using low dose modulation techniques as appropriate to perform exam including the following: automated exposure control; use of iterative reconstruction technique; adjustment of the mA and/or kV according to patient size (this includes techniques or standardized protocols for targeted exams where dose is matched to indication/reason for exam). Abdomen Ultrasound 05/19/25 20:30 IMPRESSION: Cholelithiasis with thickened gallbladder wall. There is no pericholecystic fluid. ECG Data EKG #1: Attestation: I personally reviewed and interpreted this ECG as follows: ECG completion date: 05/19/25 ECG completion time: 17:46 normal rate (76), sinus rhythm and no ST changes Discharge Plan Discharge Clinical Impression: Cholelithiasis Qualifiers: Cholelithiasis location: gallbladder Cholecystitis presence: without cholecystitis Biliary obstruction: without biliary obstruction Qualified Code(s): K80.20 - Calculus of gallbladder without cholecystitis without obstruction Patient Disposition: Home Condition: Stable Instructions: Antibiotic Form, Biliary Colic (ED), Gallstones (ED), Low Fat Diet (ED) Additional Instructions: Follow low-fat diet. Call Dr. Chandra's office Thursday morning to make appointment to have gallbladder removed. You may use Tylenol, ibuprofen as needed for pain. [place] as needed for more severe pain. Zofran as needed for nausea. Return to the ED if you experience severe pain, unable to keep down food or drink, fevers, difficulty breathing, chest pain, or any other symptoms of concern. Patient Language: Sri Lankan Prescriptions: New hydrocodone-acetaminophen 5-325 mg tablet 1 tablet PO Q6H PRN (Reason: pain) Qty: 15 0RF ondansetron 4 mg tablet,disintegrating 4 mg PO Q8H PRN (Reason: nausea and vomiting) Qty: 15 0RF No Action gabapentin 300 mg capsule 300 mg PO .COMPLEX PRN (Reason: pain) Rx Instructions: 300 mg orally 1-2 Every night as needed PRN; hydroxyzine HCl 25 mg tablet 25 mg PO TID PRN (Reason: anxiety) metoprolol succinate 50 mg Tablet Extended Release 24 Hr 50 mg PO DAILY lisinopril 10 mg Tablet 10 mg PO DAILY Praluent Pen 75 mg/mL Pen Injector See Rx Instructions .ROUTE .COMPLEX Rx Instructions: 75 mg subcutaneously every 2 weeks ipratropium bromide 21 mcg (0.03 %) spray,non-aerosol 2 spray NASAL TID PRN (Reason: nasal drainage) Qty: 30 0RF Rx Instructions: administer into each nostril aspirin 81 mg capsule 81 mg PO .COMPLEX Rx Instructions: 81 mg orally Three Times a Week; famotidine 20 mg tablet See Rx Instructions .ROUTE .COMPLEX Qty: 90 1RF Dose Instruction: TAKE 1 TABLET BY MOUTH EVERY DAY NEEDED FOR GERD Rx Instructions: TAKE 1 TABLET BY MOUTH EVERY DAY NEEDED FOR GERD Follow-up/Referrals: Zeb,Lial [Other] Erna Chandra MD [Physician, General Surgery] Referral Note: GENERAL SURGERY Time of Disposition: 21:50
[2025-05-19] MEDS: ONDANSETRON INJ 4 MG/2 ML VIAL IV PUSH (17:39)
[2025-05-19] MEDS: MORPHINE SULFATE (*CRX) 4 MG/ML INJ IV PUSH (17:39)
[2025-05-19] MEDS: PANTOPRAZOLE SODIUM IV 40 MG VIAL IV PUSH (17:39)
[2025-05-19] MEDS: SODIUM CHLORIDE 0.9% IV 1,000 ML 500 ML IV CONT (17:39)
[2025-05-19 18:06] LABS: Troponin I < 0.012 ng/mL (0.000-0.034)
[2025-05-19 18:55] LABS: Add Urine Microscopic? YES; Appearance Urine Clear (Clear); Glucose Urine UA Negative (Negative); Leukocyte Esterase Ur Negative LEU/UL (Negative); Nitrate Urine Negative (Negative); Non Pathogenic Casts 0-2; Specific Grav Ur > 1.045 (1.001-1.035)
[2025-05-19] MEDS: MORPHINE SULFATE (*CRX) 4 MG/ML INJ 2 MG IV PUSH (21:29)
[2025-05-19] MEDS: ONDANSETRON INJ 4 MG/2 ML VIAL (21:33)
== END 2025-05-19 22:17 | disposition home or self-care (01) ==
PROVIDERS: Emergency Medicine; Emergency Provider Physician Assistant
DX: K80.20 Calculus of gallbladder without cholecystitis without obstruction (principal); I25.10 Atherosclerotic heart disease of native coronary artery without angina pectoris; I10 Essential (primary) hypertension; Z86.0100 Personal history of colon polyps, unspecified; Z95.5 Presence of coronary angioplasty implant and graft; Z87.891 Personal history of nicotine dependence; R94.31 Abnormal electrocardiogram [ECG] [EKG]; I44.5 Left posterior fascicular block
CPT/HCPCS: 36415; 74177; 76705; 80053; 81001; 83690; 84484; 85025; 93005; 96361; 96374; 96375; 96376; 99284; J2270; J2405; J2470; J7030; Q9967

== ENCOUNTER 2025-06-08 09:11 | Outpatient (CLI) | payer BC, SELFPAY ==
--- OUTSIDE RECORDS SUMMARY | 2025-06-08 09:44 | XMS_ITS | Encounter Summary ---
Author Organization [facility] Address [address] [place] [address] Care Team Providers Care Leadership Intern Name Role Phone Lila Carrington MD Primary Care Provider [phone] Encounter Details Date Type Department Care Team (Late st Contact Info) Description 05/05/2025 Results Follow-Up [facility] [address] [place] [address] Bryan Treviño MD [address] [place] [address] Social History Tobacco Use Types Packs/Day Years Used Date Smoking Tobacco: Never Smokeless Tobacco: Never Alcohol Use Standard Drinks/Week Comments Yes 0 (1 standard drink = 0.6 oz pur e alcohol) 1 beer once every two weeks AUDIT-C Answer Date Recorded Q1: How often do you have a drink containing alc ohol? Monthly or less 05/04/2025 Q2: How many drinks containi ng alcohol do you have on a typical day when you are drinking? 1 or 2 05/04/2025 Q3: How often do you have si x or more drinks on one occasion? Never 05/04/2025 Sex and Gender Information Value Date Recorded Sex Assigned at Not on file Legal Sex Male 6:47 AM CDT Gender Identity Not on file Sexual Orientation Not on file documented as of this encounter Functional Status * Is person deaf or have serious hearing difficulty? Answer Date of Assessment Author No 05/04/2025 9:47 AM Silvio Guillory RN * Is person blind or have serious difficulty seeing? Answer Date of Assessment Author No 05/04/2025 9:47 AM Silvio Guillory RN * Does person have serious difficulty walking/climbing stairs? Answer Date of Assessment Author No 05/04/2025 9:47 AM Silvio Guillory RN * Does person have difficulty dressing/bathing? Answer Date of Assessment Author No 05/04/2025 9:47 AM Silvio Guillory RN * Does person have difficulty doing errands alone? Answer Date of Assessment Author No 05/04/2025 9:47 AM Silvio Guillory RN documented as of this encounter Mental Status * Does person have difficulty concentrating/remembering/making decisions? Answer Entry Date Author No 05/04/2025 9:47 AM Silvio Guillory RN documented in this encounter Plan of Treatment Not on file documented as of this encounter Goals Goal Patient Goal Type Associated Problems Recent Progress Patient-Stated? Author Medication Management General No Mima Murphy RN Note: Expected end date: ongoing Interventions: Take all medications as prescribed Let your doctor know right away about any changes in your medications Make sure to request a refill of your medication at least one week prior to your last dose documented as of this encounter Visit Diagnoses Not on filedocumented in this encounter Care Teams Leadership Intern Relationship Specialty Start Date End Date Lila Carrington MD [address] [place] [phone] PCP - General Internal Medicine 03/08/25 documented as of this encounter
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
--- OUTSIDE RECORDS SUMMARY | 2025-06-08 09:44 | XMS_ITS | Clinical Summary ---
Author Organization [facility] Address [address] [facility] [place] [address] Care Team Providers Care Rubber Goods Tester Name Role Phone Lila Carrington MD Primary Care Provider [phone] Source Comments [facility],non-owned Affiliates and Associated Physician Practices is amultiple site organization consisting of ambulatory clinics and hospital sitesin [place], [place]. This disclosure is being madepursuant to the Care Everywhere program and may not contain all information available regarding this patient. Last updated 18.[facility] [email or web address][employer]fm Allergies Active Allergy Reactions Criticality Noted Date Comments Hmg-Coa-R Inhibitors Myalgias 03/08/2025 And muscle cramps Medications * Be aware that medications may not be up to date on this document. Alwaysverify current medications with the patient. alirocumab (Praluent) 75 MG/ML injection Inject 75 (seventy five) mg subcutaneously every 14 days Active lisinopril (Prinivil; Zestril) 10 MG tablet Take 1 (one) tablet by mouth once daily Active metoprolol succinate XL 24hr (Toprol XL) 50 MG tablet Take 1 (one) tablet by mouth once daily Active ipratropium (Atrovent) 0.03 % nasal spray [place] 1 spray into each nostril 2 times daily Active gabapentin (Neurontin) 300 MG capsule Take 400 mg by mouth 3 times daily Takes 100mg capsules 4x times daily Active hydrOXYzine HCl (Atarax) 25 MG tablet Take 1 (one) tablet by mouth 4 times daily as needed for Itching Active famotidine (Pepcid) 20 MG tablet Take 1 (one) tablet by mouth once daily Active Encounters Date Type Department Care Team Description 05/05/2025 Results Follow-Up [facility] [address] [place] [address] Bryan Treviño MD 05/04/2025 5:57 AM CDT - 05/04/2025 12:12 PM CDT Hospital Encounter [facility] [address] [place] [address] Bryan Treviño MD Gastroenterology Discharge Disposition: Home or Self Care 05/04/2025 Travel 05/03/2025 Telephone [facility] [address] [place] [address] Martir Gray RN Appointment 04/20/2025 Results Follow-Up [facility] [place] [address] [place] [id number] Bryan Treviño MD 04/04/2025 12:30 PM CDT - 04/04/2025 11:59 PM CDT Hospital Encounter [facility] MRI [address] [place] [address] Bryan Treviño MD Discharge Disposition: Home or Self Care 03/08/2025 9:00 AM CDT Office Visit [facility] [address] [place] [id number] Ezekiel Marie MD Agbim, Uchenna A, MD Liver lesion (Primary Dx) 03/08/2025 Travel from Last 3 Months Family History Medical History Relation Name Comments Other - Hepatic/Liver Neg Hx Social History Tobacco Use Types Packs/Day Years Used Date Smoking Tobacco: Never Smokeless Tobacco: Never Tobacco Cessation:Counseling Given: Not Answered Alcohol Use Standard Drinks/Week Comments Yes 0 [...] Sign Reading Time Taken Comments Blood Pressure 140/71 05/04/2025 12:00 PM CDT Pulse 52 05/04/2025 12:00 PM CDT Temperature 36.7 C (98 F) 05/04/2025 9:18 AM CDT Respiratory Rate 14 05/04/2025 12:00 PM CDT Oxygen Saturation 98% 05/04/2025 12:00 PM CDT Inhaled Oxygen Concentration 21% 05/04/2025 9 :18 AM CDT Weight 90.1 kg (198 lb 9.6 oz) 05/04/2025 6:30 A M CDT Height 182.9 cm (6') 05/04/2025 6:30 AM CDT Body Mass Index 26.94 05/04/2025 6:30 AM CDT Plan of Treatment Health Maintenance Due Date Last Done Comments COLOGUARD (AGES 45-75) - COLON CA SCREENING 1955 COLON MONITORING 1955 COLONOSCOPY - COLON CA SCREENING 1955 CT COLONOGRAPHY - COLON CA SCREENING 1955 Colorectal Cancer Screening 1955 FIT - COLON CA SCREENING 1955 FLEX SIG - COLON CA SCREENING 1955 LIPID TESTING 1955 HEPATITIS C SCREENING 02/08/1973 DTAP/TDAP/TD VACCINES (1 - Tdap) 1974 PNEUMOCOCCAL VACCINE 50+ (1 of 1 - PCV) 2005 ZOSTER VACCINE (1 of 2) 2005 DEPRESSION SCREENING 07/27/2024 COVID-19 VACCINE (3 - 2024- season) 2025 06/03/2021, 05/13/2021 INFLUENZA VACCINE (#1) 2025 9, 05/26/2018, 03/02/2017, Additional history exists SCREENING FOR DIABETES 05/04/2028 05/04/2025 Respiratory Syncytial Virus (RSV) Vaccine Pt: or over 60 yrs (1 - 1-dose 75+ series) 2030 HEPATITIS B VACCINE Aged Out No longe r eligible based on patient's age to complete this topic HIB VACCINE Aged Out No longer eligi ble based on patient's age to complete this topic HPV VACCINE Aged Out No longer eligi ble based on patient's age to complete this topic MENINGOCOCCAL (Group B) VACCINE SHARED DECISION-MAKING Aged Out No longer eligible based on patient's age to complete this topic MENINGOCOCCAL GROUPS A/C/Y/W VACCINE Aged Out No longer eligible based on patient's age to complete this topic Goals Goal Patient Goal Type Associated Problems Recent Progress Patient-Stated? Author Medication Management General Mima Whaley, RN Note: Expected end date: ongoing Interventions: Take all medications as prescribed Let your doctor know right away about any changes in your medications Make sure to request a refill of your medication at least one week prior to your last dose Medical Devices Implanted Type Area Wad Compressor Operator Adjuster Device Identifier Shelf Expiration Date Model / Serial / Lot Promus Element Plus-Mri 1.5t Or 3t Coronary Stent Procedures Procedure Name Priority Date/Time Associated Diagnosis Comments CT LIVER BIOPSY Routine 05/04/2025 9:18 AM CDT Liver lesion PATHOLOGY TISSUE Routine 05/04/2025 8:55 AM CDT Liver lesion BASIC METABOLIC PANEL (CALCIUM TOTAL) STAT 05/04/2025 7:25 AM CDT Liver lesion PT-INR STAT 05/04/2025 7:25 AM CDT Liver lesion CBC W/O DIFFERENTIAL STAT 05/04/2025 7:25 AM CDT Liver lesion MRI ABDOMEN WWO CONTRAST Routine 04/04/2025 1:54 PM CDT Liver lesion from Last 3 Months Results * CT Liver Biopsy (05/04/2025 9:18 AM CDT) Anatomical Region Laterality Modality Abdomen Computed Tomogra phy 05/04/2025 12:0 6 PM CDT Impressions 05/04/2025 6:16 PM CDT Impression: CT-guided core biopsy of segment 5 hepatic lesion, as detailed above. I, Dr. Payne, was present and performed/supervised the entire procedure. Moderate sedation on this patient was ordered by me, administered intravenously in my presence, and monitored by the procedure nurse as an independent trained observer who was present throughout the procedure. The following parameters were monitored: oxygen saturation, heart rate, blood pressure, and response to care. Intra-service sedation start time was 0825 and end time was 09 during which I was present. Total physician intra-service sedation time was 41 minutes. For details on pre moderate sedation and post moderate sedation patient evaluation, please review the evaluation forms in [facility]. For details on monitored clinical parameters during the intra-service sedation time, please review the procedure nurse documentation in [facility]. > Dictated by Bolt Threader I, Julita Payne MD have personally reviewed and interpreted this examination/study. > Interpreting Provider: Julita Payne MD on 05/04/2025 6:16 PM Narrative 05/04/2025 6:16 PM CDT History: 70 year old male with indeterminate hepatic lesion in segment 5. Operators: 1.Attending - Julita Payne MD 2.Resident - Gerardo Noland MD Anesthesia: 1.Local anesthesia - 10 mL of 1% Lidocaine 2.Intravenous conscious sedation - Versed 1.5 mg and Fentanyl 75 mcg Procedure: 1.Limited non-contrast CT of the liver. 2.CT-guided core biopsy of hepatic lesion in segment 5. Procedure in detail: The procedure, risks, and possible complications were explained to the patient in detail, and informed consent was obtained. The patient was placed in a supine position on the CT table and a radio-opaque grid was placed over the region of interest. Limited non-contrast CT of the liver showed the known lesion within segment 5 adjacent to the gallbladder fossa. A percutaneous entry site was marked on the skin. The marked site and skin around the region was prepped and draped in sterile fashion. Pre-procedure time out was performed. Local anesthesia was provided with 1% Lidocaine. A 17-gauge co-axial needle system was advanced in stages under CT guidance. With the needle tip at/within the edge of the lesion, 4 core samples were acquired with an 18-gauge [place] biopsy device. The samples were sent to the pathology service in formalin. Post-procedure limited non-contrast CT did not show any immediate complications such as major hemorrhage. The patient tolerated the procedure well and was transferred to the holding area in stable condition. The pathology report is pending at the time of this dictation. Procedure Note Elmer Julita, DO - 05/04/2025 History: 70 year old male with indeterminate hepatic lesion in segment5. Operators: 1.Attending - Julita Payne MD 2.Resident - Gerardo Noland MD Anesthesia: 1.Local anesthesia - 10 mL of 1% Lidocaine 2.Intravenous conscious sedation - Versed 1.5 mg and Fentanyl 75 mcg Procedure: 1.Limited non-contrast CT of the liver. 2.CT-guided core biopsy of hepatic lesion in segment 5. Procedure in detail: The procedure, risks, and possible complications were explained to the patient in detail, and informed consent was obtained. The patient was placed in a supine position on the CT table and a radio-opaque grid was placed over the region of interest. Limited non-contrast CT of the liver showed the known lesion within segment 5 adjacent to the gallbladderfossa. A percutaneous entry site was marked on the skin. The marked site andskin around the region was prepped and draped in sterile fashion.Pre-procedure time out was performed. Local anesthesia was provided with 1% Lidocaine. A 17-gauge co-axialneedle system was advanced in stages under CT guidance. With the needle tip at/within the edge of the lesion, 4 core samples were acquired with an 18-gauge [place] biopsy device. The samples were sent to thepathology service in formalin. Post-procedure limited non-contrast CT did not show any immediate complications such as major hemorrhage. The patient tolerated theprocedure well and was transferred to the holding area in stable condition. The pathology report is pending at the time of this dictation. Impression: CT-guided core biopsy of segment 5 hepatic lesion, asdetailed above. I, Dr. Payne, was present and performed/supervised the entire procedure. Moderate sedation on this patient was ordered by me, administered intravenously in my presence, and monitored by the procedure nurse as an independent trained observer who was present throughout the procedure.The following parameters were monitored: oxygen saturation, heart rate,blood pressure, and response to care. Intra-service sedation start time [id number] and end time was 905 during which I was present. Total physician intra-service sedation time was 41 minutes. For details on pre moderate sedation and post moderate sedation patient evaluation, please reviewthe evaluation forms in [facility]. For details on monitored clinical parameters during the intra-service sedation time, please review the procedurenurse documentation in [facility]. > Dictated by Bolt Threader I, Julita Payne MD have personally reviewed and interpreted this examination/study. > Interpreting Provider: Julita Payne MD on 05/04/2025 6:16 PM us Bryan Treviño MD CT ORDERABLES Final Result * PATHOLOGY TISSUE (05/04/2025 8:55 AM CDT) Case Report Surgical Pathology Report Case: [id number] Authorizing Provider: Bryan Treviño MD Collected: 05/04/2025 08:55 AM Ordering Location: [facility] Received: 05/04/2025 10:57 AM Pathologist: Mary Simpson MD Specimen: Liver Needle Biopsy, liver lesion 05/05/2025 1:02 PM CDT [facility] Final Diagnosis Liver, lesion, biopsy (A): - Hemangioma 05/05/2025 1:02 PM CDT [facility] at 1302 CDT Microscopic Description and Comment Microscopic examination substantiates the final diagnosis. 05/05/2025 1:02 PM CDT [facility] Clinical History The patient is a 70-year-old man with indeterminate hepatic segment 5 lesion. Operative procedure: CT-guided core biopsy of hepatic segment 5. 05/05/2025 1:02 PM CDT [facility] Gross Description Received in formalin, labeled with the patient's name Gera Marie, specimen A, consists of multiple hdez-pink cylindrical needle cores ranging from 0.1 to 0.3 cm in length x 0.1 cm in diameter which are submitted in toto in a single cassette labeled A1. RB 05/05/2025 1:02 PM CDT [facility] Pathologist Location at [facility] 05/05/2025 1:02 PM CDT [facility] Disclaimer The performance characteristics of all immunohistochemical and indirect immunofluorescence stains (if any) cited in this report were determined by the Histopathology Laboratory of [facility]. Some of these tests were developed by our own laboratory and have not been cleared or approved by the US Food and Drug Administration. The FDA does not require this test to go through premarket FDA review. These tests are used for clinical purposes. They should not be regarded as investigational or for research. This laboratory is certified under the Clinical Laboratory Improvement Amendments (CLIA) as qualified to perform high complexity clinical laboratory testing. This case has been personally reviewed and interpreted by the attending (teaching) pathologist. 05/05/2025 1:02 PM CDT [facility] Collected By Martir Gray RN 04/26 1:02 PM T [facility] Embedded Images 05/05/2025 1:02 PM T [facility] Pathology/Cytolo gy NEEDLE BIOPSY OF LIVER / Unknown Collection / Unknown 05/04/2025 8:55 AM CDT 05/04/2025 10:57 AM CDT Bryan Treviño MD LAB - PATHOLOGY/CYTOLOGY CAROLINE LOZOYA Final Result [facility] [address] [phone] * PT-INR (05/04/2025 7:25 AM CDT) PT 14.0 12.1 - 14.8 Seconds 05/04/2025 8:05 AM CDT [facility] INR 1.1 See Comment 05/04/2025 8:05 AM T [facility] Comment:The suggested therap eutic range for standard coumadin (warfarin) therapy is an INR of 2.0-3.0. For high-risk patients (Mechanical Mitral Valve Prosthesis, etc.), the suggested prophylactic therapeutic range is an INR of 2.5-3.5. Blood BLOOD SPECIMEN / Unknown Venipuncture / Unknown 05/04/2025 7:25 AM CDT 05/04/2025 7:35 AM CDT us Julita Elmer DO LAB - COAGULATION ORDERABLES Fin al Result [address] [address], [facility] [phone] * CBC W/O DIFFERENTIAL (05/04/2025 7:25 AM CDT) WBC 5.6 4.0 - 10.7 x10E9/L 05/04/2025 7:47 AM CDT [facility] RBC Count 4.76 4.30 - 5.80 x10E12/L 05/04/2025 7:47 AM [facility] Hemoglobin 13.7 13.3 - 17.5 g/dL 05/04/2025 7:47 AM [facility] Hematocrit 40.7 38.7 - 51.1 % 05/04/2025 7:47 AM [facility] MCV 85.5 80.0 - 98.0 fL 05/04/2025 7:47 AM [facility] MCH 28.8 26.7 - 33.6 pg 05/04/2025 7:47 AM [facility] MCHC 33.7 31.7 - 36.3 g/dL 05/04/2025 7:47 AM [facility] RDW-CV 13.3 11.3 - 14.8 % 05/04/2025 7:47 AM [facility] Platelet Count 227 150 - 420 x10E9/L 05/04/2025 7:47 AM [facility] MPV 10.8 7.8 - 11.4 fL 05/04/2025 7:47 AM [facility] Blood BLOOD SPECIMEN / Unknown Venipuncture / Unknown 05/04/2025 7:25 AM CDT 05/04/2025 7:35 AM CDT us Julita Elmer DO LAB - HEMATOLOGY ORDERABLES Celia l Result [address] [place] [address], [facility] [phone] * (ABNORMAL) BASIC METABOLIC PANEL (CALCIUM TOTAL) (05/04/2025 7:25 AM CDT) BUN 20 7 - 26 mg/dL 05/04/2025 8:05 AM [facility] Creatinine 0.91 0.71 - 1.16 mg/dL 05/04/2025 8:05 AM [facility] Sodium 138 136 - 145 mmol/L 05/04/2025 8:05 AM [facility] Potassium 3.8 3.5 - 4.5 mmol/L 05/04/2025 8:05 AM [facility] Chloride 108(H) 98 - 107 mmol/L 05/04/2025 8:05 AM [facility] CO2 26 22 - 29 mmol/L 05/04/2025 8:05 AM [facility] Glucose 120(H) 70 - 99 mg/dL 05/04/2025 8:05 AM [facility] Calcium 8.8 8.4 - 10.2 mg/dL 05/04/2025 8:05 AM [facility] Anion Gap 4(L) 6 - 16 05/04/2025 8:05 AM [facility] BUN/Creatinine Ratio 22 7 - 23 05/04/2025 8:05 AM [facility] Osmolality Calculated 290 275 - 295 mOsm/kg 05/04/2025 8:05 AM [facility] eGFR by CKD-EPI >90 >=90 mL/min/1.7 3 m2 05/04/2025 8:05 AM [facility] Comment:Estimated Glomerular Filtration Rate (eGFR) calculated using the CKD-EPI Creatinine Equation (2020), per the National Kidney Foundation and [employer] Society of Nephrology recommendations. 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 Attention on follow-up is recommended. 2.Stable in size 1.9 cm lesion in hepatic segment 5. This is indeterminate and differential diagnosis could include a sclerosed hemangioma or less likely a low-grade cholangiocarcinoma. 3 months follow-up with liver protocol MRI with an extracellular agent such as MultiHance is recommended. Alternative approach would be PET/CT or tissue sampling. 3.A 1.5 cm simple hepatic cyst in hepatic segment 5. 4.Cholelithiasis without evidence of cholecystitis. The report was drafted by Tomás Richards MD (residential plumber) 04/04/2025 3:13 PM. > Dictated by Bolt Threader I, Jayashree Herrera have personally reviewed and interpreted this examination/study. > Interpreting Provider: Jayashree Herrera on 04/05/2025 6:03 PM Narrative 04/05/2025 6:03 PM CDT PROCEDURE: MRI ABDOMEN WWO CONTRAST, DATE/TIME OF EXAM: 04/04/2025 1:54 PM, LOCATION [facility] INDICATION: K76.9: Liver lesion ADDITIONAL CLINICAL INFORMATION: Ordering Provider Reason For Exam: Technologist Note: Additional: COMPARISON: CT chest abdomen pelvis from 01/31/2025. TECHNIQUE: Noncontrast followed by multiphasic contrast-enhanced MRI examination of was performed using routine multiplanar sequences. MRCP: None. CONTRAST: 9 mL of MultiHance was used as intravenous contrast. No procedure related complications seen. IMAGE QUALITY: Average diagnostic quality. Findings: Lower Chest: Lung bases are clear. No pleural effusion seen. Hepatobiliary system LIver: Normal morphology and smooth outline. Normal hepatic signal intensity. No significant fatty infiltration or iron overload seen. The liver shows normal enhancement in the postcontrast images. The portal vein and hepatic veins are patent. Conventional hepatic arterial anatomy. Focal Lesions: There is a 2.2 x 1.3 cm T2 slightly hyperintense T1 hypointense lesion in hepatic segment 7 (series 9 image 41, series 11 image 40, and series 15 image 39) with somewhat nodular peripheral enhancement. No internal filling is seen on delayed images. No retained contrast is noted on hepatobiliary phase. There is T2 shine through without restricted diffusion. There is an additional 1.9 x 1.9 cm T2 slightly hyperintense lesion in hepatic segment 5 along the gallbladder (series 9 image 64, series 11 image 64, and series 15 image 64) with mild thin peripheral enhancement with subtle tiny curvilinear internal enhancement on delayed images. There is no definite restricted diffusion with possible T2 shine through. There is a 1.5 cm hepatic cyst in hepatic segment 5 (series 7 image 45). Spleen: Normal. Normal splenic signal intensity. Ascites: None. Biliary system: Gallbladder: 2 gallstones are seen in the gallbladder. No associated imaging features of acute cholecystitis. Bile ducts: No intrahepatic or extrahepatic biliary dilation. Pancreas: Pancreas is normal morphology and signal intensity. No focal lesions identified in the pancreas. Pancreatic duct: Pancreatic duct is nondilated. Retroperitoneum Kidneys: Normal bilateral kidneys. Adrenals: Unremarkable. Lymph nodes: No significantly enlarged retroperitoneal or mesenteric lymph node enlargement. Blood vessels: Aorta and inferior vena cava are unremarkable. Gastrointestinal: Stomach and visualized small bowel loops and colon are unremarkable. Procedure Note Jayashree Peoples MD - 04/05/2025 PROCEDURE: MRI ABDOMEN WWO CONTRAST, DATE/TIME OF EXAM: 04/04/2025 1:54PM, LOCATION [facility] INDICATION: K76.9: Liver lesion ADDITIONAL CLINICAL INFORMATION: Ordering Provider Reason For Exam: Technologist Note: Additional: COMPARISON: CT chest abdomen pelvis from 01/31/2025. TECHNIQUE: Noncontrast followed by multiphasic contrast-enhanced MRI examination of was performed using routine multiplanar sequences. MRCP: None. CONTRAST: 9 mL of MultiHance was used as intravenous contrast. No procedurerelated complications seen. IMAGE QUALITY: Average diagnostic quality. Findings: Lower Chest: Lung bases are clear. No pleural effusion seen. Hepatobiliary system LIver: Normal morphology and smooth outline. Normal hepatic signal intensity. No significant fatty infiltration or iron overload seen. The liver shows normal enhancement in the postcontrast images. The portalvein and hepatic veins are patent. Conventional hepatic arterial anatomy. Focal Lesions: There is a 2.2 x 1.3 cm T2 slightly hyperintense T1 hypointense lesion in hepatic segment 7 (series 9 image 41, series 11image 40, and series 15 image 39) with somewhat nodular peripheralenhancement. No internal filling is seen on delayed images. No retained contrast is noted on hepatobiliary phase. There is T2 shine through withoutrestricted diffusion. There is an additional 1.9 x 1.9 cm T2 slightly hyperintense lesion in hepatic segment 5 along the gallbladder (series 9 image 64, series 11image 64, and series 15 image 64) with mild thin peripheral enhancement with subtle tiny curvilinear internal enhancement on delayed images. There isno definite restricted diffusion with possible T2 shine through. There is a 1.5 cm hepatic cyst in hepatic segment 5 (series 7 image 45). Spleen: Normal. Normal splenic signal intensity. Ascites: None. Biliary system: Gallbladder: 2 gallstones are seen in the gallbladder. No associated imaging features of acute cholecystitis. Bile ducts: No intrahepatic or extrahepatic biliary dilation. Pancreas: Pancreas is normal morphology and signal intensity. No focal lesions identified in the pancreas. Pancreatic duct: Pancreatic duct is nondilated. Retroperitoneum Kidneys: Normal bilateral kidneys. Adrenals: Unremarkable. Lymph nodes: No significantly enlarged retroperitoneal or mesentericlymph node enlargement. Blood vessels: Aorta and inferior vena cava are unremarkable. Gastrointestinal: Stomach and visualized small bowel loops and colon are unremarkable. 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 Attention on follow-up is recommended. 2.Stable in size 1.9 cm lesion in hepatic segment 5. This isindeterminate and differential diagnosis could include a sclerosed hemangioma or less likely a low-grade cholangiocarcinoma. 3 months follow-up with liver protocol MRI with an extracellular agent such as MultiHance isrecommended. Alternative approach would be PET/CT or tissue sampling. 3.A 1.5 cm simple hepatic cyst in hepatic segment 5. 4.Cholelithiasis without evidence of cholecystitis. The report was drafted by Tomás Richards MD (residential plumber) 04/04/2025 3:13 PM. > Dictated by Bolt Threader I, Jayashree Herrera have personally reviewed and interpreted this examination/study. > Interpreting Provider: Jayashree Herrera on 04/05/2025 6:03 PM Bryan Treviño MD MR ORDERABLES Final Result from Last 3 Months Insurance ANTHEM Care Teams Rubber Goods Tester Relationship Specialty Start Date End Date Lila Carrington MD [address] [place] [address] PCP - General Internal Medicine 03/08/25
--- OUTSIDE RECORDS SUMMARY | 2025-06-08 09:44 | XMS_ITS | Clinical Summary ---
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 11/12/2015 Physical exam [...] Comments Blood Pressure 140/80 07/08/2024 9:36 AM LANDFILL ATTENDANT Pulse 57 07/08/2024 9:36 AM LANDFILL ATTENDANT Temperature 36.2 C (97.1 F) 07/08/2024 9:36 AM LANDFILL ATTENDANT Respiratory Rate 14 07/08/2024 9:36 AM LANDFILL ATTENDANT Oxygen Saturation 97% 07/08/2024 9:36 AM LANDFILL ATTENDANT Inhaled Oxygen Concentration - - Weight 87.4 kg (192 lb 9.6 oz) 07/08/2024 9:36 A M LANDFILL ATTENDANT Height 185.4 cm (6' 1) 07/08/2024 9:36 AM LANDFILL ATTENDANT Body Mass Index 25.41 07/08/2024 9:36 AM LANDFILL ATTENDANT Plan of Treatment Health Maintenance Due Date Last Done Comments Hepatitis C Virus (HCV) Screening 1955 Cologuard 02/14/2000 Immunochemical Fecal Occult Blood 02/14/2000 Respiratory Syncytial Virus (RSV) Immunization (Adult) (1 - Risk 50-74 years 1-dose series) 2005 Zoster Immunization (2 of 3) 06/30/2015 05/05/2015 AAA Screening Ultrasound 02/14/2020 Influenza Immunization (#1) 2025 11/01/2019, 05/26/2018, 03/02/2017, Additional history exists SARS-COV-2 Immunization ( season) 2025 06/03/2021, 05/13/2021 Colonoscopy 06/24/2031 06/24/2021, 01/02/2014 Colorectal Cancer Screening 06/24/2031 Td Immunization Every 10 Years (Adults With 1 Tdap) 05/13/2033 05/13/2023, 10/29/2012 PSA Discussion Discontinued 11/05/2015 Pneumococcal Immunization (50+ years) Completed 05/13/2023, [...] 4.00 ng/mL 11/05/2015 11:52 AM CDT [facility] Blood specimen (specimen) Venipuncture / Unknown 11/05/2015 7:43 AM CDT 11/05/2015 7:45 AM CDT Narrative [facility] - 11/05/2015 11:52 AM CDT PSA NOTE: The PSA value should be used in conjunction with information available from clinical evaluation and other diagnostic procedures. us Hardy Cuevas MD CHEMISTRY ORDERABLES Final Re sult [facility] [address] [place] [address] * COLONOSCOPY (01/02/2014) us Xu Mckinney DO PROCEDURE/MINOR SURGICAL ORDERA BLES Final Result from Last 3 Months or Most Recently Relevant to Health Maintenance Insurance [facility] Care Teams Foam Machine Operator Relationship Specialty Start Date End Date Lila Carrington MD [address] [place] [address] PCP - General Adult Medicine 03/11/22 Silvio Stephens DPM Podiatry 06/09/16 Cielo Hay APRN, SR TECHNICAL SALES CONSULTANT [address] [address] Nurse Practitioner Advanced Practice Nurse 07/08/24
--- OUTSIDE RECORDS SUMMARY | 2025-06-08 09:44 | XMS_ITS | Encounter Summary ---
Author Organization [facility] Address [address] [place] [address] Care Team Providers Care Header Dock Name Role Phone Lila Carrington MD Primary Care Provider [phone] Encounter Details Date Type Department Care Team (Late st Contact Info) Description 06/07/2025 Abstract [facility] Internal Medicine Medical [facility] [address] [facility] [address] [address] Lila Carrington MD [address] [facility] [address] [place] [address] Social History Tobacco Use Types Packs/Day Years Used Date Smoking Tobacco: Former Cigarettes 0.5 5 0 07/27/1978 - 07/27/1983 Smokeless Tobacco: Former Chew Alcohol Use Standard Drinks/Week Comments Yes 2 (1 standard drink = 0.6 oz pure alcohol) I drink a couple of beers over the weekend Sex and Gender Information Value Date Recorded Sex Assigned at Male 09/24/2024 6:46 AM BIAS CUTTER HELPER Legal Sex Male 5:14 PM CDT Gender Identity Male 09/24/2024 6:46 AM BIAS CUTTER HELPER Sexual Orientation Straight 09/24/2024 6: 46 AM BIAS CUTTER HELPER documented as of this encounter Plan of Treatment Upcoming Encounters Date Type Department Care Team (Late st Contact Info) Description 09/11/2025 3:00 PM BIAS CUTTER HELPER Office Visit [facility] and V[facility] At [place] [address] [facility] [address] [place] [address] Felipa Cash, PROVIDER SERVICE REPRESENTATIVE [address] [facility] [address] [place] [address] 09/18/2025 3:30 PM BIAS CUTTER HELPER Video Visit [facility] Internal Medicine [facility] [address] [facility] [address] [place] [address] Lila Carrington MD [facility] [address] [place] [address] 03/07/2026 2:45 PM CDT Office Visit [facility] [place] [address] [facility] [address] [place] [address] Xu Falk MD [facility] [address] [place] [phone] 03/12/2026 2:00 PM CDT Office Visit [facility] Internal Medicine [facility] [address] [facility] [address] [address] Lila Carrington MD [facility] [address] [place] [address] documented as of this encounter Visit Diagnoses Not on filedocumented in this encounter Care Teams Header Dock Relationship Specialty Start Date End Date Lila Carrington MD [address] [place] [address] [address] [place] [address] PCP - General Internal Medicine 03/09/22 documented as of this encounter
--- OUTSIDE RECORDS SUMMARY | 2025-06-08 09:44 | XMS_ITS | Encounter Summary ---
Author Organization [facility] Address [address] [place] [address] Care Team Providers Care Casting Operator Helper Name Role Phone Lila Carrington MD Primary Care Provider [phone] Encounter Details Date Type Department Care Team (Late st Contact Info) Description 04/14/2019 Specialty Pharmacy [facility] [address] [address] Patrice Fishman Social History Tobacco Use Types Packs/Day Years Used Date Smoking Tobacco: Former Cigarettes Q uit: 07/27/1983 Smokeless Tobacco: Never Alcohol Use Standard Drinks/Week Comments Yes 2 (1 standard drink = 0.6 oz pur e alcohol) Sex and Gender Information Value Date Recorded Sex Assigned at Male 09/24/2024 6:46 AM ARCHITECTURAL ASSOCIATE Legal Sex Male 5:14 PM CDT Gender Identity Male 09/24/2024 6:46 AM ARCHITECTURAL ASSOCIATE Sexual Orientation Straight 09/24/2024 6: 46 AM ARCHITECTURAL ASSOCIATE documented as of this encounter Plan of Treatment Upcoming Encounters Date Type Department Care Team (Late st Contact Info) Description 09/11/2025 3:00 PM ARCHITECTURAL ASSOCIATE Office Visit [facility] Heart and Vascular At [facility] [address] [facility] [address] [place] [address] ShaileshFelipa FNP [address] [facility] [address] [place] [address] 09/18/2025 3:30 PM ARCHITECTURAL ASSOCIATE Video Visit [facility] Internal Medicine [facility] [address] [facility] [address] [address] Lila Carrington MD [address] [facility] [address] [place] [address] 03/07/2026 2:45 PM CDT Office Visit [facility] Heart and Vascular At [facility] [address] [facility] [address] [place] [phone] Xu Falk MD [address] [facility] [address] [place] [address] 03/12/2026 2:00 PM CDT Office Visit [facility] Internal Medicine [facility] A [facility] [address] [facility] [address] [address] Lila Carrington MD [address] [facility] [address] [place] [address] documented as of this encounter Visit Diagnoses Not on filedocumented in this encounter Care Teams Casting Operator Helper Relationship Specialty Start Date End Date Lila Carrington MD [address] [place] [address] [address] [place] [address] PCP - General Internal Medicine 03/09/22 documented as of this encounter
[2025-06-08 10:03] LABS: Amylase 65 U/L (30-110)
== END 2025-06-08 09:12 | disposition home or self-care (01) ==
LOC: ANHSURGERY 09:17
PROVIDERS: Visit Provider Surgery
DX: K80.10 Calculus of gallbladder with chronic cholecystitis without obstruction (principal)
CPT/HCPCS: 36415; 82150; 86850; 86900; 86901

== ENCOUNTER 2025-06-16 01:28 | Day surgery (SDC) | payer BC, SELFPAY ==
--- NOTE | 2025-06-07 15:11 | PC.NURSE ---
[facility] has started construction of its new state of the art ER which will open Spring 2026. With this, we anticipate parking may be a challenge for some our surgical patients and families. Parking spaces are limited but are available for all Surgical, obstetrics, and ER patients sharing this lot. If you arrive and find you are having a hard time finding a parking space, please note that we understand the challenges, please drive around the hospital and park near Hospital Entrance 1. When you enter this entrance, you can ask a volunteer to direct or take you back to the surgical waiting area to check in. We appreciate everyone?s understanding of these expected challenges while we build for your future. Report to the Outpatient Waiting Room, entrance under the green pavilion located off [address], at time _10 AM on date _06/16/25 . Planned Procedure Time: _1200 NOON .? Time changes happen often and if your time is changed the preop area will call you the afternoon before. - You and your visitor will be asked to self-screen and do not enter if you have any COVID symptoms. Please call surgeon if you need to reschedule. - A mask is optional within the hospital at this time. Patients may have clear liquids (water, carbonated beverages, clear teas, apple juice) until 3 hours prior to surgery ( 9AM) with a maximum of 20 ounces. - No food from midnight until time of surgery and no smoking, or chewing tobacco (or any form of nicotine). No chewing gum, candy or mints. - Take only the following medications with a SIP of water on the morning of surgery: __HYDROXYZINE, METOPROLOL DO NOT STOP ANY OF YOUR OTHER PRESCRIPTION MEDICATIONS PRIOR TO SURGERY EXCEPT THE FOLLOWING Hold all vitamins and supplements for 3 days per anesthesiologist.LAST DOSE 06/12/[address] SNELL ,DO NO T TAKE MORNING OF SURGERY Medications to discontinue per physician NONE Date to take last dose Please no make-up, nail slovenian, hairspray, perfume, deodorant, or body powder the day of surgery.? No jewelry (including any body piercings) or valuables the day of surgery, leave them at home.? Please take a shower or bath the night before, or the morning of, surgery with an antibacterial soap.? Wear comfortable, loose fitting clothing.? Children are encouraged to wear pajamas. - Jewelry must be removed prior to entering the operating room.? Rings and piercings that are not removed may be cut off. - The hospital will not accept responsibility for valuables.? - Please leave all valuables, including medications, at home the day of surgery. If you are going home after surgery, a licensed local [place] truck driver must drive you home.? - NO public transportation without another adult if you receive anesthesia. - We recommend that an adult stay with you for 24 hours following discharge. - We also recommend that you do not drive, make important decision, drink alcoholic beverages, or take any drugs that were not prescribed by your health care provider for at least 24 hours after your discharge time. For Pediatric surgeries, we recommend two adults accompany the child home. Follow any additional instructions given to you from your surgeon. Telephone instructions given to ___PATIENT and asked if any additional questions and then verbalized understanding. Patient advised to call surgeon office or pre surgery nurse liaison [phone] if any additional questions.
[2025-06-07 15:37] VITALS: BMI 25.7
[2025-06-16] VITALS (9 sets, daily range): BP systolic 128–176; BP diastolic 59–84; PULSE 46–64; RESP 12–24; TEMP 36.2; O2SAT 99–100; BMI 26.2
--- OUTSIDE RECORDS SUMMARY | 2025-06-16 01:32 | XMS_ITS | Encounter Summary ---
Author Organization [facility] Address [address] [place] [address] Care Team Providers Care Incubator Tender Name Role Phone Lila Carrington MD Primary Care Provider [phone] Encounter Details Date Type Department Care Team (Late st Contact Info) Description 04/14/2019 Specialty Pharmacy [facility] Specialty [facility]acy [address] [address] Patrice Fishman Social History Tobacco Use Types Packs/Day Years Used Date Smoking Tobacco: Former Cigarettes 0 Q uit: 07/27/1983 Smokeless Tobacco: Never Alcohol Use Standard Drinks/Week Comments Yes 2 (1 standard drink = 0.6 oz pur e alcohol) Sex and Gender Information Value Date Recorded Sex Assigned at Male 09/24/2024 6:46 AM MACHINIST HELPER Legal Sex Male 5:14 PM CDT Gender Identity Male 09/24/2024 6:46 AM MACHINIST HELPER Sexual Orientation Straight 09/24/2024 6: 46 AM MACHINIST HELPER documented as of this encounter Plan of Treatment Upcoming Encounters Date Type Department Care Team (Late st Contact Info) Description 09/11/2025 3:00 PM MACHINIST HELPER Office Visit [facility] Heart and Vascular At [facility] [address] [facility] [address] [place] [address] Felipa Cash, MILADYS [address] [facility] [address] [place] [address] 09/18/2025 3:30 PM MACHINIST HELPER Video Visit [facility] Internal Medicine Medical [place] [facility] [address] [facility] [address] [address] Lila Carrington MD [address] [facility] [address] [place] [address] 03/07/2026 2:45 PM CDT Office Visit [facility] Heart and V[facility] At [place] [address] [facility] [address] [place] [address] Xu Falk MD [facility] [address] [place] [address] 03/12/2026 2:00 PM CDT Office Visit [facility] Internal Medicine [facility] [address] [facility] [address] [place] [address] Lila Carrington MD [address] [facility] [address] [place] [address] documented as of this encounter Visit Diagnoses Not on filedocumented in this encounter Care Teams Incubator Tender Relationship Specialty Start Date End Date Lila Carrington MD [address] [place] [address] [address] [place] [address] PCP - General Internal Medicine 03/09/22 documented as of this encounter
--- OUTSIDE RECORDS SUMMARY | 2025-06-16 01:32 | XMS_ITS | Clinical Summary ---
Author Organization [facility] Address [address] [place] [address] Phone Care Team Providers Care Pin Drafting Machine Operator Name Role Phone Silvio Stephens DPM Unavailable [phone] Lila Carrington MD Primary Care Provider [phone] Cielo Hay APRN, WOOL BRUSHER Unavailable Allergies No known active allergies Medications [...] 06/09/2016 Hammer toe of right foot 06/09/2016 [place] of toe 06/09/2016 Onychomycosis 05/19/2016 HTN (hypertension) 11/12/2015 Hyperlipidemia 11/12/2015 Coronary artery disease invo lving [place] coronary artery of [place] heart without angina pectoris 11/12/2015 Physical exam [...] Comments Blood Pressure 140/80 07/08/2024 9:36 AM ROUTE DELIVERY MANAGER Pulse 57 07/08/2024 9:36 AM ROUTE DELIVERY MANAGER Temperature 36.2 C (97.1 F) 07/08/2024 9:36 AM ROUTE DELIVERY MANAGER Respiratory Rate 14 07/08/2024 9:36 AM ROUTE DELIVERY MANAGER Oxygen Saturation 97% 07/08/2024 9:36 AM ROUTE DELIVERY MANAGER Inhaled Oxygen Concentration - - Weight 87.4 kg (192 lb 9.6 oz) 07/08/2024 9:36 A M ROUTE DELIVERY MANAGER Height 185.4 cm (6' 1) 07/08/2024 9:36 AM ROUTE DELIVERY MANAGER Body Mass Index 25.41 07/08/2024 9:36 AM ROUTE DELIVERY MANAGER Plan of Treatment Health Maintenance Due Date Last Done Comments Hepatitis C Virus (HCV) Screening 1955 Varicella Immunization (1 of 2 - 13+ 2-dose series) 02/14/1968 Cologuard 02/14/2000 Immunochemical Fecal Occult Blood 02/14/2000 Respiratory Syncytial Virus (RSV) Immunization (Adult) (1 - Risk 50-74 years 1-dose series) 2005 Zoster Immunization (2 of 3) 06/30/2015 05/05/2015 AAA Screening Ultrasound 02/14/2020 Influenza Immunization (#1) 2025 11/2 01/2019, 05/26/2018, 03/02/2017, Additional history exists SARS-COV-2 Immunization (3 - 2024- season) 2025 06/03/2021, 05/13/2021 Colonoscopy 06/24/2031 06/24/2021, [...] sult [facility] [address] [place] [address] * COLONOSCOPY (01/02/2014) Xu Mckinney DO PROCEDURE/MINOR SURGICAL ORDERA BLES Final Result from Last 3 Months or Most Recently Relevant to Health Maintenance Insurance [facility] Care Teams Pin Drafting Machine Operator Relationship Specialty Start Date End Date Lila Carrington MD [address] [place] [address] PCP - General Adult Medicine 03/11/22 Silvio Stephens DPM Podiatry 06/09/16 Cielo Hay APRN, WOOL BRUSHER [address] [address] Nurse Practitioner Advanced Practice Nurse 07/08/24
--- OUTSIDE RECORDS SUMMARY | 2025-06-16 01:32 | XMS_ITS | Clinical Summary ---
Author Organization [facility] Address [address] [facility] [place] [address] Care Team Providers Care Quarter Supervisor Name Role Phone Lila Carrington MD Primary Care Provider [phone] Source Comments [facility],non-owned Affiliates and Associated Physician Practices is amultiple site organization consisting of ambulatory clinics and hospital sitesin [place], [place], [place] and [place]. This disclosure is being madepursuant to the Care Everywhere program and may not contain all information available regarding this patient. Last updated 18.[facility] Factor 14 Allergies Active Allergy Reactions Criticality Noted Date [...] Active ipratropium (Atrovent) 0.03 % nasal spray [place] 1 spray into each nostril 2 times [...] Department Care Team Description 05/05/2025 Results Follow-Up [facility] IVR [address] [place] [address] Bryan Treviño MD 05/04/2025 5:57 AM CDT - 05/04/2025 12:12 PM CDT Hospital Encounter [facility] OP [address] [place] [address] Bryan Treviño MD Gastroenterology Discharge Disposition: Home or Self Care 05/04/2025 Travel 05/03/2025 Telephone [facility] IVR [address] [place] [address] Martir Gray RN Appointment 04/20/2025 Results Follow-Up [facility] - GI [address] [facility] [place] [address] Bryan Treviño MD 04/04/2025 12:30 PM CDT - 04/04/2025 11:59 PM CDT Hospital Encounter [facility] MRI [address] [place] [address] Bryan Treviño MD Discharge Disposition: Home or Self Care from Last 3 Months Family History Medical [...] last dose Medical Devices Implanted Type Area Engineer Systems Device Identifier Shelf Expiration Date Model / [...] evaluation, please review the evaluation forms in [facility]. For details on monitored clinical parameters during the intra-service sedation time, please review the procedure nurse documentation in [facility]. > Dictated by Acid Tank Liner I, Julita Payne MD have personally reviewed [...] core samples were acquired with an 18-gauge [place]om[place]! biopsy device. The samples were sent to [...] core samples were acquired with an 18-gauge [employer] biopsy device. The samples were sent to [...] response to care. Intra-service sedation start time [id number] and end time was 0906 during which I was present. Total physician intra-service sedation time was 41 minutes. For details on pre moderate sedation and post moderate sedation patient evaluation, please reviewthe evaluation forms in [facility]. For details on monitored clinical parameters during the intra-service sedation time, please review the procedurenurse documentation in [facility]. > Dictated by Acid Tank Liner I, Julita Payne MD have personally reviewed and interpreted this examination/study. > Interpreting Provider: Julita Payne MD on 05/04/2025 6:16 PM Bryan Treviño MD CT ORDERABLES Final Result * PATHOLOGY TISSUE (05/04/2025 8:55 AM CDT) Case Report Surgical Pathology Report Case: [id number] Authorizing Provider: Bryan Treviño MD Collected: 05/04/2025 08:55 AM Ordering Location: [facility] Received: 05/04/2025 10:57 AM Pathologist: Mary Simpson MD Specimen: Liver Needle Biopsy, liver lesion 05/05/2025 1:02 PM CDT [facility] Final Diagnosis Liver, lesion, biopsy (A): - Hemangioma 05/05/2025 1:02 PM CDT [facility] PATHOLOGY LAB at 1302 CDT Microscopic Description and Comment Microscopic examination substantiates the final diagnosis. 05/05/2025 1:02 PM CDT [facility] Clinical History The patient is a 70-year-old man with indeterminate hepatic segment 5 lesion. Operative procedure: CT-guided core biopsy of hepatic segment 5. 05/05/2025 1:02 PM CDT [facility] Gross Description Received in formalin, labeled with the patient's name Gera Marie, specimen A, consists of multiple hdez-pink cylindrical needle cores ranging from 0.1 to 0.3 cm in length x 0.1 cm in diameter which are submitted in toto in a single cassette labeled A1. RB 05/05/2025 1:02 PM CDT [facility] Pathologist Location at [facility] 05/05/2025 1:02 PM CDT [facility] Disclaimer The performance characteristics of all immunohistochemical and indirect immunofluorescence stains (if any) cited in this report were determined by the Histopathology Laboratory of [facility]. Some of these tests were developed by [...] attending (teaching) pathologist. 05/05/2025 1:02 PM CDT [facility] PATH[facility] Collected By Martir Gray RN 04/26 1:02 PM CDT [facility] Embedded Images 05/05/2025 1:02 PM CDT [facility] Pathology/Cytolo gy NEEDLE BIOPSY OF LIVER / Unknown Collection / Unknown 05/04/2025 8:55 AM CDT 05/04/2025 10:57 AM CDT us Bryan Treviño MD LAB - PATHOLOGY/CYTOLOGY ORDE DARELL Final Result Performing Organization Address [facility] Co de Phone Number [facility] LAB [address] [phone] * PT-INR (05/04/2025 7:25 AM CDT) PT 14.0 12.1 - 14.8 Seconds 05/04/2025 8:05 AM CDT [facility] INR 1.1 See Comment 05/04/2025 8:05 AM T [facility] Comment:The suggested therap eutic range for standard coumadin (warfarin) therapy is an INR of 2.0-3.0. For high-risk patients (Mechanical Mitral Valve Prosthesis, etc.), the suggested prophylactic therapeutic range is an INR of 2.5-3.5. Blood BLOOD SPECIMEN / Unknown Venipuncture / Unknown 05/04/2025 7:25 AM CDT 05/04/2025 7:35 AM CDT us Julita Payne DO LAB - COAGULATION ORDERABLES Fin al Result Performing Organization Address [facility]/ZIP Co de Phone Number [facility] [address] [phone], [facility] [phone] * CBC W/O DIFFERENTIAL (05/04/2025 7:25 AM CDT) WBC 5.6 4.0 - 10.7 x10E9/L 05/04/2025 7:47 AM [facility] RBC Count 4.76 4.30 - 5.80 x10E12/L 05/04/2025 7:47 AM [facility] Hemoglobin 13.7 13.3 - 17.5 g/dL 05/04/2025 7:47 AM [facility] Hematocrit 40.7 38.7 - 51.1 % 05/04/2025 7:47 AM [facility] MCV 85.5 80.0 - 98.0 fL 05/04/2025 7:47 AM [facility] MCH 28.8 26.7 - 33.6 pg 05/04/2025 7:47 AM [facility] MCHC 33.7 31.7 - 36.3 g/dL 05/04/2025 7:47 AM [facility] RDW-CV 13.3 11.3 - 14.8 % 05/04/2025 7:47 AM [facility] Platelet Count 227 150 - 420 x10E9/L 05/04/2025 7:47 AM [facility] MPV 10.8 7.8 - 11.4 fL 05/04/2025 7:47 AM [facility] Blood BLOOD SPECIMEN / Unknown Venipuncture / Unknown 05/04/2025 7:25 AM CDT 05/04/2025 7:35 AM CDT us Julita Elmer DO LAB - HEMATOLOGY ORDERABLES Celia l Result [facility] [address] [place] [address], [facility] [phone] * (ABNORMAL) BASIC METABOLIC PANEL (CALCIUM TOTAL) (05/04/2025 7:25 AM CDT) Pathologist [facility] BUN 20 7 - 26 mg/dL 05/04/2025 8:05 AM [facility] Creatinine 0.91 0.71 - 1.16 mg/dL 05/04/2025 8:05 AM [facility] Sodium 138 136 - 145 mmol/L 05/04/2025 8:05 AM [facility] Potassium 3.8 3.5 - 4.5 mmol/L 05/04/2025 8:05 AM [facility] Chloride 108(H) 98 - 107 mmol/L 05/04/2025 8:05 AM [facility] CO2 26 22 - 29 mmol/L 05/04/2025 8:05 AM [facility] Glucose 120(H) 70 - 99 mg/dL 05/04/2025 8:05 AM [facility] Calcium 8.8 8.4 - 10.2 mg/dL 05/04/2025 8:05 AM [facility] Anion Gap 4(L) 6 - 16 05/04/2025 8:05 AM [facility] BUN/Creatinine Ratio 22 7 - 23 05/04/2025 8:05 AM [facility] Osmolality Calculated 290 275 - 295 mOsm/kg 05/04/2025 8:05 AM [facility] eGFR by CKD-EPI >90 >=90 mL/min/1.7 3 m2 05/04/2025 8:05 AM [facility] Comment:Estimated Glomerular Filtration Rate (eGFR) calculated using the CKD-EPI Creatinine Equation (2020), per the National Kidney Foundation and [place] Society of Nephrology recommendations. Blood BLOOD SPECIMEN / Unknown Venipuncture / Unknown 05/04/2025 7:25 AM CDT 05/04/2025 7:35 AM CDT us Julita Elmer DO LAB - CHEMISTRY ORDERABLES Final Result [facility] [address] [place] [address], [facility] [phone] * MRI Abdomen Wwo Contrast (04/04/2025 1:54 [...] was drafted by Tomás Richards MD (residential care officer) 04/04/2025 3:13 PM. > Dictated by Acid Tank Liner I, Jayashree Herrera have personally reviewed and interpreted this examination/study. > Interpreting Provider: Jayashree Herrera on 04/05/2025 6:03 PM Narrative 04/05/2025 6:03 PM CDT PROCEDURE: MRI ABDOMEN WWO CONTRAST, DATE/TIME OF EXAM: 04/04/2025 1:54 PM, LOCATION [facility] INDICATION: K76.9: Liver lesion ADDITIONAL CLINICAL INFORMATION: [...] CONTRAST, DATE/TIME OF EXAM: 04/04/2025 1:54PM, LOCATION [facility] INDICATION: K76.9: Liver lesion ADDITIONAL CLINICAL INFORMATION: [...] was drafted by Tomás Richards MD (residential care officer) 04/04/2025 3:13 PM. > Dictated by Acid Tank Liner I, Jayashree Herrera have personally reviewed and interpreted this examination/study. > Interpreting Provider: Jayashree Herrera on 04/05/2025 6:03 PM Bryan Treviño MD MR ORDERABLES Final Result from Last 3 Months Insurance ANTHEM Care Teams Quarter Supervisor Relationship Specialty Start Date End Date Lila Carrington MD [address] [place] [phone] PCP - General Internal Medicine 03/08/25
--- OUTSIDE RECORDS SUMMARY | 2025-06-16 01:32 | XMS_ITS | Clinical Summary ---
Author Organization [facility] Address [address] [place] [address] Phone Care Team Providers Care Dryer And Washer Mechanic Name Role Phone Lila Carrington MD Primary Care Provider [phone] Allergies Active Allergy Reactions Criticality Noted Date [...] be different from the original. Xu Falk MD--Supervisor Refractory Products ([facility] @ ) Problem Noted Date Diagnosed Date Cholelithiasis 03/07/2025 Situational anxiety 11/20/2023 Numbness of left foot 09/09/2022 Myalgia due to statin 03/25/2021 Prediabetes 02/27/2017 Atherosclerosis of [place] co ronary artery of [place] heart without angina pectoris 11/25/2016 NURYS (obstructive sleep apnea) 11/25/2016 HTN (hypertension), benign 11/25/2016 Hx of partial thyroidectomy 11/25/2016 Statin myopathy 11/25/2016 Fracture of tibia and fibula , shaft, left, closed, initial encounter Hyperlipidemia Resolved Problems Problem Noted Date Diagnosed Date Resolved Date Substernal chest pain 02/03/20242024 Hyperlipidemia 11/25/2016 02/19/2023 HTN (hypertension) Coronary artery disease 01/25 Encounters Date Type Department Care Team Description 06/15/2025 Orders Only [facility] Internal Medicine Medical [place] [address] [address] [address] [address] Provider, Abstract 06/07/2025 Abstract [facility] Internal Medicine Medical [place] [address] [address] Lila Carrington MD 05/04/2025 Refill [facility] Internal Medicine Medical [place] [address] [address] Lila Carrington MD HTN (hypertension), benign 05/03/2025 Refill [facility] Internal Medicine Medical [place] [address] [address] Lila Carrington MD 04/20/2025 Orders Only [facility] Internal Medicine Medical [place] [address] [address] Provider, Abstract 04/18/2025 Abstract [facility] Internal Medicine [facility] [address] [address] Lila Carrington MD 04/11/2025 External Device Data STL ABSTRACTION Provider, Abstract 03/27/2025 Refill [facility] Internal [facility] [address] [place] [address] [address] Gaviota Mota PA Situational anxiety from Last 3 Months Immunizations Immunization Administration Dates Next Due (ADACEL/BOOSTRIX)(10 YR UP) TDAP VACCINE, 0.5ML, IM 05/13/2023,10/29/2012 (PFIZER)(12 YR UP) COVID-19 VACCINE - EMERGENCY USE AUTHORIZATION, MRNA, [id number](PF) 30 MCG/0.3 ML IM SUSP 06/03/2021,05/13/2021 (PNEUMOVAX 23)(50 YRS UP) PN EUMOCOCCAL POLYSACCHARIDE (PPV23) 0.5 ML, IM 03/26/2020,01/10/2013 (PREVNAR 20)(6 WKS UP) PNEUM OCOCCAL CONJUGATE VACCINE 20-VALENT (PCV20), POLYSACCHARIDE [id number] CONJUGATE, ADJUVANT 0.5 ML (PF) IM 05/13/2023 [...] Sex Assigned at Male 09/24/2024 6:46 AM DIRT BIKE MECHANIC Legal Sex Male 5:14 PM CDT Gender Identity Male 09/24/2024 6:46 AM DIRT BIKE MECHANIC Sexual Orientation Straight 09/24/2024 6: 46 AM DIRT BIKE MECHANIC Last Filed Vital Signs Vital Sign Reading [...] st Contact Info) Description 09/11/2025 3:00 PM DIRT BIKE MECHANIC Office Visit [facility] Heart and Vascular At [address] [place] [address] Felipa Csah, LABORER LANDSCAPE [address] [place] [address] [address] [place] [address] 09/18/2025 3:30 PM DIRT BIKE MECHANIC Video Visit [facility] Internal Medicine [facility] [address] [place] [address] [address] [place] [phone] Lila Carrington MD [address] [place] [address] [address] [place] [phone] 03/07/2026 2:45 PM CDT Office Visit [facility] Heart and Vascular At [address] [place] [address] Xu Falk MD [address] [place] [address] [address] [place] [address] 03/12/2026 2:00 PM CDT Office Visit [facility] Internal Medicine [facility] [address] [place] [phone] Lila Carrington MD [address] [facility] [place] [address] Health Maintenance Due Date Last Done Comments DIABETES ANNUAL FOOT EXAM 1973 FIT-DNA Q 3 years 02/14/2000 [...] Order) 03/07/202603/07, 06/09/2024, 11/23/2023, Additional history exists DIABETES ANNUAL RETINAL EXAM 06/01/2026 06/01/2025 COLORECTAL SCREENING 12/26/2029 12/26/2024, 06/24/2021, 06/24/2021, Additional history exists Colorectal Cancer Screening 12/26/2029 DTAP/TDAP/TD VACCINES (3 - T d or Tdap) 05/13/2033 05/13/2023, 10/29/2012 PNEUMOCOCCAL VACCINE 50+ YEARS Completed 1 , 03/26/2020, 01/10/2013 Preventative Visit- Commercial Completed 0 03/07/2025, 05/13/2023, 05/19/2022, Additional history exists Medical Devices Implanted Type Area Gold Charmer Device Identifier Shelf Expiration Date Model / Serial / Lot Synthes Tibial Nail Implanted:Qty: 1 on 03/10/2022 by Luis Felipe Chau DO at [facility] Nail Left: [employer] 10/25/2031 [id number] S / / [id number] Description:[employer] [place] COMP ONETS ON REQUISITION# [id number] Synthes 5.0 Ti Nail Screws Implanted:Qty: 1 on 03/10/2022 by Luis Felipe Chau DO at [facility] Screw Left: [employer] [id number] S / / 2 5 MAR 08, 2022 Synthes 5.0 Ti Nail Screws Implanted:Qty: 1 on 03/10/2022 by Luis Felipe Chau DO at [facility] Screw Left: [employer] [id number] S / / 2 5 MAR 08, 2022 Synthes 5.0 Ti Nail Screws Implanted:Qty: 1 on 03/10/2022 by Luis Felipe Chau DO at [facility] Screw Left: [employer] [place] [id number] S / / 2 5 MAR 08, 2022 Procedures Procedure Name Priority Date/Time Associated Diagnosis Comments DIABETES EYE EXAM Routine 06/01/2025 10:41 AM DIRT BIKE MECHANIC MRI ABDOMEN W WO CONTRAST Routine 04/04/2025 4:35 PM CDT MICROALBUMIN/CREATIN INE RATIO, RANDOM UR Routine 03/07/2025 2:39 PM CDT Type 2 diabetes mellitus without complication, without long-term current use of insulin ([facility]) POC HEMOGLOBIN A1C Routine 03/07/2025 2: 03 PM CDT Type 2 diabetes mellitus without complication, without long-term current use of insulin (CMS/HCC) COLONOSCOPY REPORT Routine 12/26/2024 10 :52 AM CDT LIPID PANEL Routine 06/09/2024 7:38 AM DIRT BIKE MECHANIC Other hyperlipidemia Type 2 diabetes mellitus without complication, without long-term current use of insulin (CMS/HCC) from Last 3 Months or Most Recently Relevant to Health Maintenance Results * DIABETES EYE EXAM (06/01/2025 10:41 AM DIRT BIKE MECHANIC) us Abstract Provider HEALTH MAINTENANCE Edited Resu lt - Final EXTERNAL LAB * MRI ABDOMEN W WO CONTRAST (04/04/2025 4:35 PM CDT) Anatomical Region Laterality Modality Abdomen Magnetic Resonan ce us Abstract Provider MR ORDERABLES Final Result * MICROALBUMIN/CREATININE RATIO, RANDOM UR (03/07/2025 2:39 PM CDT) CREATININE, URINE 76 20 - 320 mg/dL [facility] ALBUMIN, URINE <0.2 See Note: mg/dL [facility] Comment: Reference Range: Reference Range [...] within a diagnostic category. Test Performed at: [facility] [address] [place] [address] Anderson Lockwood MD Urine URINE SPECIMEN OBTAINED BY CLEAN CATCH PROCEDURE / Unknown 03/07/2025 2:39 PM CDT 03/08/2025 4:32 AM CDT Gaviota SORIANO URINE ORDERABLES Final Resu lt [facility] [phone] [facility] [address] [employer] [phone] * (ABNORMAL) POC HEMOGLOBIN A1C (03/07/2025 2:03 PM CDT) HGB A1C POC 6.7(A) 4.0 - 6.0 % BRIANA RODAS MD KIT LOT NUMBER POC [id number] BRIANA RODAS MD KIT EXP DATE POC 04/2027 [facility] BRIANA LORENZO MD Blood, capillary 03/07/2025 2:03 PM CDT Gaviota SORIANO POINT OF CARE TESTING Final Result Performing Organization Address [facility]/ZIP Co de Phone Number BRIANA RODAS MD CLIA# [id number] [address] [address] * COLONOSCOPY REPORT (12/26/2024 10:52 AM CDT) us Abstract Provider GI PROCEDURE ORDERABLES Final Result Performing Organization Address [facility] Co de Phone Number BRIANA RODAS MD CLIA# [id number] [address] [address] * LIPID PANEL (06/09/2024 7:38 AM DIRT BIKE MECHANIC) CHOLESTEROL 141 <200 mg/dL [facility] HDL 43 > OR = 40 mg/dL [facility] TRIGLYCERIDE 117 <150 mg/dL [facility] LDL CALCULATED 78 mg/dL (calc) [facility] Comment: Reference range: <100 Desirable range <100 mg/dL for primary prevention; <70 mg/dL for patients with CHD or diabetic patients with > or = 2 CHD risk factors. LDL-C is now calculated using the Rebecca calculation, which is a validated novel method providing better accuracy than the Friedewald equation in the estimation of LDL-C. Ovidio GARCIA et al. SONAM. 2013;310(19): 1833-2523 (http://education.Demeure.picoChip/faq/TNK804) CHOL/HDL RATIO 3.3 <5.0 (calc) [facility] NON-HDL CHOLESTEROL 98 <130 mg/dL (calc) [facility] Comment: For patients with diabetes plus 1 major ASCVD risk factor, treating to a non-HDL-C goal of <100 mg/dL (LDL-C of <70 mg/dL) is considered a therapeutic option. Test Performed at: [facility] [address] [facility] [place] [address] Anderson Lockwood MD Blood 06/09/2024 7:38 AM DIRT BIKE MECHANIC 06/09/2024 7:39 AM DIRT BIKE MECHANIC us Lila Carrington MD CHEMISTRY ORDERABLES Final R esult [facility] [phone] [facility] [place] [address] from Last 3 Months or Most Recently Relevant to Health Maintenance Insurance RX [employer] Commercial RX [employer]ANS (INTERNAL) [facility] RX [employer] Commercial Advance Directives For more information, please contact: [phone] * Full Code (Latest Code Status on File) Date Activated Date Inactivated Comments 03/10/2022 1:04 PM 03/11/2022 6:56 PM * Full Code Date Activated Date Inactivated Comments 03/10/2022 9:33 AM 03/10/2022 1:04 PM Care Teams Dryer And Washer Mechanic Relationship Specialty Start Date End Date Lila Carrington MD [address] [place] [phone] PCP - General Internal Medicine 03/09/22
--- OUTSIDE RECORDS SUMMARY | 2025-06-16 01:32 | XMS_ITS | Encounter Summary ---
Author Organization [facility] Address [address] [facility] [place] [address] Care Team Providers Care Machine Room Operator Name Role Phone Lila Carrington MD Primary Care Provider [phone] Encounter Details Date Type Department Care Team (Late st Contact Info) Description 05/05/2025 Results Follow-Up [facility] IVR [address] [place] [address] Bryan Treviño MD [address] [place] [address] Social History Tobacco Use Types [...] on filedocumented in this encounter Care Teams Machine Room Operator Relationship Specialty Start Date End Date Lila Carrington MD [address] [place] [phone] PCP - General Internal Medicine 03/08/25 documented as of this encounter
[2025-06-16] MEDS: LACTATED RINGERS 1,000 ML 30 ML IV CONT ×2 (06:30→08:18)
[2025-06-16] MEDS: KETOROLAC 15 MG/ML VIAL (*BKC) IV PUSH (07:10)
[2025-06-16] MEDS: ACETAMINOPHEN 500 MG TABLET 1000 MG PO (07:10)
--- NOTE | 2025-06-16 07:12 | WPDANESEPPF ---
Anes - Initial Pre Proc Eval Procedure: Operation Date: 06/16/25 07:30 Proposed Procedures p Laparoscopic Cholecystectomy - Erna Chandra MD Date/Time: 06/16/25 07:12 Surgeon: Erna Chandra MD Pre Op Diagnosis: chronic cholecystitis with calculus Patient Data Age: 70 Gender: M Height: 1.83 m Weight: 86.2 kg Allergies Allergy/AdvReac Type Severity Reaction Status Date / Time [id number] Reductase Allergy Unknown Joint Pain Verified 06/07/25 15:19 Inhibitor Home Medications ?Medication ?Instructions ?Recorded ?Confirmed ?Type alirocumab 75 mg/mL subcutaneous See Rx Instructions .Route .COMPLEX 03/11/20 06/07/25 History pen injector (Praluent Pen) lisinopril 10 mg tablet 20 mg PO DAILY 03/11/20 06/07/25 History metoprolol succinate 50 mg 50 mg PO DAILY 03/11/20 06/07/25 History tablet,extended release 24 hr ipratropium bromide 21 mcg (0.03 2 spray intranasal TID PRN nasal 11/11/22 06/07/25 Rx %) nasal spray drainage #30 mL gabapentin 300 mg capsule 300 mg PO .COMPLEX PRN pain 05/21/23 06/07/25 History hydroxyzine HCl 25 mg tablet 25 mg PO TID PRN anxiety 05/21/23 06/07/25 History aspirin 81 mg capsule 81 mg PO .COMPLEX 12/20/24 06/07/25 History famotidine 20 mg tablet See Rx Instructions .Route 03/17/25 06/07/25 Rx .COMPLEX #90 tabs hydrocodone 5 mg-acetaminophen 325 1 tablet PO Q6H PRN pain #15 tabs 05/19/25 06/07/25 Rx mg tablet ondansetron 4 mg disintegrating 4 mg PO Q8H PRN nausea and 05/19/25 06/07/25 Rx tablet vomiting #15 tabs ascorbic acid (vitamin C) 1,000 mg 1 g PO DAILY 06/07/25 06/07/25 History tablet (C-1000) cholecalciferol (vitamin D3) 50 50 mcg PO DAILY 06/07/25 06/07/25 History mcg (2,000 unit) capsule garlic 1,000 mg capsule 1,000 mg PO DAILY 06/07/25 06/07/25 History magnesium 100 mg capsule 100 mg PO DAILY 06/07/25 06/07/25 History multivitamin (Daily Multi-Vitamin 1 tablet PO DAILY 06/07/25 06/07/25 History tablet) omega 7-quc-xcm-fish oil 1,000 mg 1 cap PO DAILY 06/07/25 06/07/25 History (120 mg-180 mg) capsule (Fish Oil) vitamin E 268 mg (400 unit) capsule 268 mg PO DAILY 06/07/25 06/07/25 History zinc 50 mg capsule 50 mg PO DAILY 06/07/25 06/07/25 History Patient hx anesthesia problems: none Family hx anesthesia problems: none Results Review: All pre-operative results and documents have been reviewed as part of the pre-operative evaluation. [facility]LY [facility] Past Medical History Medical History (Updated 06/16/25 @ 07:15 by Ricky Mart DO) NURYS (obstructive sleep apnea) Colon polyp CAD (coronary artery disease) History of high blood pressure Surgical History Surgical History History of thyroid surgery Hx of knee surgery History of coronary artery stent placement Family History Family History Grandparent Breast cancer Diabetes mellitus Heart disease Mother Heart disease Hypertension Father Hypertension Sibling Hypertension Social History Social History Years smoked: 8 Smoking status: Former smoker Tobacco type: cigarettes Additional smoking assessment comments: Quit 40 years ago Alcohol intake: current Drinks per week: 4 Substance use: never Substance use type: does not use Do You Feel Safe in your Home?: Yes Lack of Transportation: No Lack of Food: Never True Current Housing: I Have Housing Concerned About Future Housing: No Difficulty Paying Gas/Electric Bills: No Difficulty Paying for Meds: No Currently Unemployed: No Education: Associate Degree Difficulty w/ Childcare or Family Care: No Living arrangements: with family Spiritual care concerns: No Anes - Eval Final PreProcedure Day of Procedure 06/16/25 07:12 Patient weight: overweight Heart: regular rate and rhythm Lungs: clear to auscultation Airway: Mallampati scale class II Neurological: alert and oriented Last oral intake: >/= 8 hours ASA classification: III Emergent: no Anesthetic plan: proceed Anesthesia type and monitoring: general ETT and standard monitoring Results Review: All pre-operative results and documents have been reviewed as part of the pre-operative evaluation. Informed Consent: The patient's anesthetic plan and its attendant risks and benefits were discussed with the patient/family/POA. Questions were solicited and answers provided to the satisfaction of the patient/family/POA.
--- NOTE | 2025-06-16 07:16 | PM.IMHP ---
H&P: HPI History of Present Illness Date/Time: 06/16/25 07:16 Chief Complaint: Chronic cholecystitis, cholelithiasis Narrative: Gera is a 69 y/o male who presents for a gallbladder evaluation at the request of Denisha Mahan APRN. Patient reports symptoms of bloating and reflux starting about [address] abd/pelvis was done at on 01/13/25 which showed cholelithiasis. He had an EGD and colonoscopy that were essentially normal. He is also experiencing left groin pain. Patient subsequently had ER visit for worsening symptoms and significant for chronic cholecystitis, cholelithiasis. Review of Systems Review of Systems: All systems reviewed & are unremarkable except as noted in HPI and below PMFSH Past Medical History Medical History NURYS (obstructive sleep apnea) Colon polyp CAD (coronary artery disease) History of high blood pressure Surgical History Surgical History History of thyroid surgery Hx of knee surgery History of coronary artery stent placement Family History Family History Grandparent Breast cancer Diabetes mellitus Heart disease Mother Heart disease Hypertension Father Hypertension Sibling Hypertension Social History Social History Years smoked: 8 Smoking status: Former smoker Tobacco type: cigarettes Additional smoking assessment comments: Quit 40 years ago Alcohol intake: current Drinks per week: 4 Substance use: never Substance use type: does not use Do You Feel Safe in your Home?: Yes Lack of Transportation: No Lack of Food: Never True Current Housing: I Have Housing Concerned About Future Housing: No Difficulty Paying Gas/Electric Bills: No Difficulty Paying for Meds: No Currently Unemployed: No Education: Associate Degree Difficulty w/ Childcare or Family Care: No Living arrangements: with family Spiritual care concerns: No Meds Home Medications and Allergies Home Medications ?Medication ?Instructions ?Recorded ?Confirmed ?Type alirocumab 75 mg/mL subcutaneous See Rx Instructions .Route .COMPLEX 03/11/20 06/07/25 History pen injector (Praluent Pen) lisinopril 10 mg tablet 20 mg PO DAILY 03/11/20 06/07/25 History metoprolol succinate 50 mg 50 mg PO DAILY 03/11/20 06/07/25 History tablet,extended release 24 hr ipratropium bromide 21 mcg (0.03 2 spray intranasal TID PRN nasal 11/11/22 06/07/25 Rx %) nasal spray drainage #30 mL gabapentin 300 mg capsule 300 mg PO .COMPLEX PRN pain 05/21/23 06/07/25 History hydroxyzine HCl 25 mg tablet 25 mg PO TID PRN anxiety 05/21/23 06/07/25 History aspirin 81 mg capsule 81 mg PO .COMPLEX 12/20/24 06/07/25 History famotidine 20 mg tablet See Rx Instructions .Route 03/17/25 06/07/25 Rx .COMPLEX #90 tabs hydrocodone 5 mg-acetaminophen 325 1 tablet PO Q6H PRN pain #15 tabs 05/19/25 06/07/25 Rx mg tablet ondansetron 4 mg disintegrating 4 mg PO Q8H PRN nausea and 05/19/25 06/07/25 Rx tablet vomiting #15 tabs ascorbic acid (vitamin C) 1,000 mg 1 g PO DAILY 06/07/25 06/07/25 History tablet (C-1000) cholecalciferol (vitamin D3) 50 50 mcg PO DAILY 06/07/25 06/07/25 History mcg (2,000 unit) capsule garlic 1,000 mg capsule 1,000 mg PO DAILY 06/07/25 06/07/25 History magnesium 100 mg capsule 100 mg PO DAILY 06/07/25 06/07/25 History multivitamin (Daily Multi-Vitamin 1 tablet PO DAILY 06/07/25 06/07/25 History tablet) omega 0-pca-kbm-fish oil 1,000 mg 1 cap PO DAILY 06/07/25 06/07/25 History (120 mg-180 mg) capsule (Fish Oil) vitamin E 268 mg (400 unit) capsule 268 mg PO DAILY 06/07/25 06/07/25 History zinc 50 mg capsule 50 mg PO DAILY 06/07/25 06/07/25 History Allergies Allergy/AdvReac Type Severity Reaction Status Date / Time [id number] Reductase Allergy Unknown Joint Pain Verified 06/07/25 15:19 Inhibitor Exam Const: General: cooperative, comfortable and no acute distress Resp: Auscultation: clear to auscultation bilaterally Cardio: Rate: regular rate Rhythm: regular rhythm GI: Inspection: normal to inspection and non-distended GI Palp: No abdominal tenderness and Yes Soft to palpation Assessment and Plan Assessment and plan (1) Chronic cholecystitis with calculus: Code(s): K80.10 - Calculus of gallbladder with chronic cholecystitis without obstruction Status: Acute Assessment and Plan: Quite symptomatic at this point, we will set up for laparoscopic cholecystectomy
--- NOTE | 2025-06-16 07:18 | WPDHPUPDATE1 ---
History and Physical Update Update Date/Time: 06/16/25 07:18 History and Physical has been reviewed, including an updated exam of the patient. There are NO changes in the patient's condition. Risks, benefits, and alternatives have been discussed and questions answered. Patient agrees to proceed with procedure.
[2025-06-16] MEDS: ceFAZolin 2 GM in SODIUM CHLORIDE 0.9% IV 50 ML 100 ML IVPB (07:49)
[2025-06-16] MEDS: BUPIVACAINE/EPINEPHRINE 0.5% 50 ML VIAL 30 ML INFILTRATE (07:50)
--- NOTE | 2025-06-16 07:59 | S_PTH ---
PATIENT: Gera Marie LOC: [facility] U#:[id number] AGE/SX: 70/M ROOM: RE06/16/[address]: Erna Chandra MD : 1955 BED: DIS: 06/16/2025 SPEC #: [id number] RECD: 06/16/25 10:08 STATUS: JUNE REQ #: [id number] ADORE: 06/16/25 07:[address]: Erna Chandra DEPT: [facility] Surgical RECD BY: Nava Alva Tissues: A - Gallbladder Procedures: Hematoxylin and Eosin Stain Gross and Microscopic Level 3
--- NOTE | 2025-06-16 08:22 | W.PM.PROC2 ---
Procedure Note - Detailed Date of Procedure 06/16/25 Pre-op Diagnosis chronic cholecystitis with calculus Post-op Diagnosis Same Procedure Performed Laparoscopic cholecystectomy Surgeon Erna Chandra MD Anesthesia General and Local Indications 70-year-old male presenting with chronic cholecystitis, cholelithiasis Findings acute on chronic cholecystitis, cholelithiasis Description of Procedure The patient was taken to the operating room placed in the supine position. After adequate induction of general anesthesia, the patient was prepped and draped in normal sterile fashion. A time-out was then performed to verify the patient's identity as well as the procedure being performed. I then made a 5 mm incision in the infraumbilical region. Through this, a Veress needle was placed into the peritoneal cavity and CO2 gas was then insufflated. After adequate pneumoperitoneum was achieved, the Veress needle was removed and a 5 mm optiview trocar was placed through this incision under direct visualization. I then placed the laparoscope through this trocar site and under direct visualization placed a further 12 mm subxiphoid port as well as 2 additional 5 mm ports in the right upper abdomen. The gallbladder was then identified and was noted to be inflamed, distended, and full of gallstones. I was able to place a grasper at the dome of the gallbladder and this was retracted anterior and cephalad up over the liver. A 2nd retractor was then placed at the infundibulum and retracted laterally, this allowed visualization of the triangle of Calot. I then was able to visualize the cystic duct in its entirety from its proximal insertion into the gallbladder, to its distal junction with the common hepatic/common bile duct junction. At this point, I carefully skeletonized the proximal cystic duct with the [place] dissector. I then clipped and transected the proximal cystic duct. Next I visualized the cystic artery. Again the artery was skeletonized, clipped, and transected. I then used the Bovie cautery to take down the peritoneal attachments of the gallbladder off the liver bed. This was somewhat difficult given the amount of inflammation in the posterior space. Once the gallbladder specimen was completely detached, an endo-pouch was placed through the 12 mm port site. I then placed the gallbladder specimen into the Endo pouch and removed the endo-pouch from the 12 mm port site. The specimen will now be sent to pathology for further review. I then copiously irrigated the right upper quadrant. Some mild oozing was noted in the liver bed and this was controlled with the bovie cautery. Hemostasis was noted in the liver bed, the clips were noted to be in good position on both the cystic duct stump and the cystic artery stump. No other pathology was noted in the right upper quadrant. I then moved the laparoscope to the subxiphoid port. No iatrogenic injury or other pathology was noted in the lower abdomen. I then closed the 12 mm trocar site under direct visualization using the Josh cone and 0 Vicryl suture. At this point, the abdomen was desufflated and all ports removed. All port sites were then closed with 4.O Monocryl subcuticular sutures. Dermabond was placed on each incision. The patient tolerated the procedure well, was extubated in the operating room postoperative and will be transferred to the recovery room in stable condition Estimated Blood Loss 10 Drains No Packing No Pathology Yes Complications No immediate complications Condition Stable Disposition PACU [facility] Billing Surgery - Charge Forward: Surgery Billing
[2025-06-16] MEDS: oxyCODONE HCL (*CRX) 5 MG TAB IR PO (09:38)
== END 2025-06-16 10:27 | disposition home or self-care (01) ==
PROVIDERS: Visit Provider Surgery
PROC: 0FT44ZZ Resection of Gallbladder, Percutaneous Endoscopic Approach (ICD-10-PCS; CPT 47562; principal; 2025-06-16 07:30)
DX: K80.10 Calculus of gallbladder with chronic cholecystitis without obstruction (principal)
CPT/HCPCS: 47562; 88304; J0690; A9270; J1885; J2003; J2405; J2704; J3010; J7120